=== PATIENT | male | born 1965 | race Caucasian/White ===

== ENCOUNTER 2018-07-09 08:25 | Outpatient (CLI) | payer MEDICARE, MEDICAID, SELFPAY ==
[2018-07-09 09:57] LABS: ALT 32 U/L (12-78); AST 21 U/L (15-37); Albumin 3.6 g/dL (3.4-5.0); Alkaline Phosphatase 111 U/L (46-116); Anion Gap 11.2 mmol/L (3-11); BUN 15 mg/dL (7-18); Bilirubin, Total 0.3 mg/dL (0.2-1.0); CO2 27.8 mmol/L (21.0-32.0); Calcium 9.6 mg/dL (8.5-10.1); Chloride 103 mmol/L (98-107); Estimated GFR 57.31 (mL/min/1.73m2); Glucose 92 mg/dL (70-100); Potassium 4.3 mmol/L (3.5-5.1); Sodium 142 mmol/L (136-145); Total Protein 7.7 g/dL (6.4-8.2)
[2018-07-09 10:17] LABS: Vitamin D 25 Total 49.9 ng/ml (30-100)
== END 2018-07-09 08:45 ==
PROVIDERS: PCP Family Medicine; Visit Provider Family Medicine
DX: M89.9 Disorder of bone, unspecified (principal); R74.8 Abnormal levels of other serum enzymes; R03.0 Elevated blood-pressure reading, without diagnosis of hypertension
CPT/HCPCS: 36415; 80053; 82306

== ENCOUNTER 2019-01-30 08:28 | Outpatient (CLI) | payer MEDICARE, MEDICAID, SELFPAY ==
[2019-01-30 08:47] LABS: HCT 42.6 % (40.0-50.0); HGB 14.4 g/dL (13.5-17.5); Mean Corp. HGB Concentration 33.8 g/dL (32.0-36.0); Mean Corpuscular Hemoglobin 30.3 pg (27.0-33.0); Mean Corpuscular Volume 89.5 fL (80-95); Mean Platelet Volume 9.6 fL (8.0-11.0); Platelet Count 295 x1000/uL (130-400); RBC 4.76 m/cumm (4.50-6.00); RBC Distribution Width 13.7 % (11.8-14.1); White Blood Cell Count 8.03 k/cumm (4.4-10.8)
[2019-01-30 09:53] LABS: Anion Gap 10.9 mmol/L (3-11); BUN 13 mg/dL (7-18); CO2 26.1 mmol/L (21.0-32.0); Calcium 8.5 mg/dL (8.5-10.1); Calculated LDL 115 mg/dL; Chloride 104 mmol/L (98-107); Cholesterol 193 mg/dL (50-200); Glucose 96 mg/dL (70-100); HDL Cholesterol 57 mg/dL (40-60); Potassium 4.2 mmol/L (3.5-5.1); Sodium 141 mmol/L (136-145); Triglyceride 107 mg/dL (30-150)
== END 2019-01-30 08:48 ==
PROVIDERS: PCP Family Medicine; Visit Provider Family Medicine
DX: I10 Essential (primary) hypertension (principal); D64.9 Anemia, unspecified; E78.5 Hyperlipidemia, unspecified
CPT/HCPCS: 36415; 80048; 80061; 83721; 85027

== ENCOUNTER 2019-11-28 12:52 | Outpatient (REF) | payer MEDICARE, MEDICAID, SELFPAY ==
[2019-11-28 18:57] LABS: HCT 44.7 % (40.0-50.0); HGB 14.9 g/dL (13.5-17.5)
[2019-11-28 19:01] LABS: BUN 16 mg/dL (7-18); CREATININE 1.44 mg/dL (0.70-1.30); Calcium 9.5 mg/dL (8.5-10.1); Chloride 104 mmol/L (98-107); Estimated GFR 50.75 (mL/min/1.73m2); Glucose 103 mg/dL (74-106); Potassium 4.7 mmol/L (3.5-5.1); Sodium 138 mmol/L (136-145)
== END 2019-11-28 13:12 ==
LOC: NCHCN 12:52
PROVIDERS: PCP Family Medicine; Visit Provider Family Medicine
DX: I95.1 Orthostatic hypotension (principal)
CPT/HCPCS: 80048; 85014; 85018

== ENCOUNTER 2019-12-05 01:07 | Outpatient (CLI) | payer MEDICARE, MEDICAID, SELFPAY ==
--- NOTE | 2019-12-05 | DI.US_ITS ---
EXAM: US RENAL CLINICAL HISTORY: RENAL INSUFFICIENCY,N28.9,UTI SYMPTOMS, R39.9. TECHNIQUE: Kaur scale, color and spectral Doppler were used. COMPARISON: No exams were available for comparison FINDINGS: Renal size in cm: Right: 10.1 left: 10.2 Echogenicity: Normal. Hydronephrosis: No. Cyst or mass: No. Nephrolithiasis: No. Other findings: None. Bladder:Normal. Ureteral jets: Right: Visualized and unremarkable. Left: Visualized and unremarkable. Prevoid vol:390 cc Postvoid vol:Patient unable to void. Cc Prostate: 23.2 cc DOPPLER FINDINGS: Normal and symmetric blood flow to the kidneys. IMPRESSION: Patient was unable to void which resulted in a large urinary bladder volume at the end of the examina tion. Otherwise unremarkable renal ultrasound. DATA REPOSITORY:
== END 2019-12-05 01:27 ==
PROVIDERS: PCP Family Medicine; Visit Provider Family Medicine
DX: N28.9 Disorder of kidney and ureter, unspecified (principal); R39.9 Unspecified symptoms and signs involving the genitourinary system; R33.9 Retention of urine, unspecified
CPT/HCPCS: 76770

== ENCOUNTER 2020-03-05 11:21 | Outpatient (REF) | payer MEDICARE, MEDICAID, SELFPAY ==
[2020-03-05 19:14] LABS: Anion Gap 7.1 mmol/L (3-11); BUN 9 mg/dL (7-18); CO2 28.9 mmol/L (21.0-32.0); CREATININE 1.22 mg/dL (0.70-1.30); Calcium 9.1 mg/dL (8.5-10.1); Chloride 103 mmol/L (98-107); Glucose 75 mg/dL (74-106); Potassium 4.2 mmol/L (3.5-5.1); Sodium 139 mmol/L (136-145)
== END 2020-03-05 11:41 ==
LOC: NCHCN 11:21
PROVIDERS: PCP Family Medicine; Visit Provider Family Medicine
DX: N28.9 Disorder of kidney and ureter, unspecified (principal)
CPT/HCPCS: 80048

== ENCOUNTER 2020-04-20 02:25 | Outpatient (CLI) | payer MEDICARE, MEDICAID, SELFPAY ==
--- NOTE | 2020-05-11 08:21 | ZIOP_ITS ---
Date of service: 05/11/20 Time of Service: 08:21 14 Day Commercial Illustrator Referring Provider:: Catina Indications:: dizziness Note: This is a 14-day monitoring ordered for dizziness The rhythm throughout was sinus. Average heart rate was 86. Minimum heart rate was 58 and maximum 123 There was no atrial fibrillation. There was no high-grade AV block or pauses greater than 3 seconds There were rare atrial and ventricular ectopic beats There were 6 supraventricular runs, the longest of which lasted 18 beats No symptoms were reported
== END 2020-04-20 02:45 ==
PROVIDERS: PCP Family Medicine; Visit Provider Family Medicine
DX: R42 Dizziness and giddiness (principal); I47.2 Ventricular tachycardia
CPT/HCPCS: 0296T

== ENCOUNTER 2020-05-11 08:21 | Outpatient (CLI) | payer MEDICARE, MEDICAID, SELFPAY | END 2020-05-11 08:41 | PROVIDERS: PCP Family Medicine; Referring Provider Internal Medicine Cardiovascular Disease; Visit Provider Internal Medicine Cardiovascular Disease | DX: R42 Dizziness and giddiness (principal); I47.2 Ventricular tachycardia | CPT/HCPCS: 0298T ==

== ENCOUNTER 2020-07-31 13:42 | Outpatient (CLI) | payer MEDICARE, MEDICAID, SELFPAY ==
--- NOTE | 2020-07-31 13:45 | RT.EKG_ITS ---
APPROVED REPORT Exam: Resting ECG Patient Location: O HR:87 bpm ECG Measurements Heart Rate 87 AXIS LA 154 P 33 QRSd 88 QRS -34 QT 345 T 48 QTc 415 Conclusion Sinus rhythm...normal P axis, V-rate 50- 99 Consider right atrial enlargement...P >0.24mV limb lead Left axis deviation...QRS axis (-30,-90) Baseline wander in lead(s) V1
== END 2020-07-31 13:43 | disposition home or self-care (01) ==
LOC: DI.CARD 13:54
PROVIDERS: PCP Family Medicine; Referring Provider Family Medicine; Visit Provider Internal Medicine Cardiovascular Disease
DX: I95.1 Orthostatic hypotension (principal); G47.33 Obstructive sleep apnea (adult) (pediatric)
CPT/HCPCS: 93010

== ENCOUNTER → 2020-07-31 13:42 | Outpatient (BNVA) | payer MEDICARE, MEDICAID, SELFPAY | PROVIDERS: PCP Family Medicine; Referring Provider Family Medicine; Visit Provider Internal Medicine Cardiovascular Disease | DX: R42 Dizziness and giddiness (principal); I10 Essential (primary) hypertension; J44.9 Chronic obstructive pulmonary disease, unspecified; F17.200 Nicotine dependence, unspecified, uncomplicated | CPT/HCPCS: 99204; 99214 ==

== ENCOUNTER 2021-04-02 03:55 | Outpatient (CLI) | payer MEDICARE, MEDICAID, SELFPAY ==
--- NOTE | 2021-04-02 07:33 | DI.US_ITS ---
APPROVED REPORT EXAM: Comprehensive 2D, Doppler, and color-flow Echocardiogram Patient Location: Out-Patient Family Intervention Specialist: Wanda Cordero RDCS (AE) Indications: Orthostatic hypotension, Lightheadedness, Sleep apnea Other Information Study Quality: Adequate Conclusion Normal left ventricular wall thickness. Normal left ventricular chamber size. Estimated ejection fr action is 65 to 70%. Wall motion is hyperdynamic Normal right ventricular size and systolic function Both atria are normal in size There is no significant valvular disease Wall motion Left Ventricle The left ventricle is normal size. The left ventricular systolic function is normal. The left ventric ular ejection fraction is within the normal range. There is normal left ventricular wall thickness. T here is normal LV segmental wall motion. There is no ventricular septal defect visualized. LVEF is 65 -70%. Right Ventricle The right ventricle is normal size. The right ventricular systolic function is normal. The RVSP is 34 .4 mmHg. Atria The left atrium size is normal. The right atrium size is normal. The interatrial septum is intact wit h no evidence for an atrial septal defect. Aortic Valve The aortic valve is normal in structure. Aortic valve is trileaflet. There is no aortic valvular sten osis. No aortic regurgitation is present. Mitral Valve The mitral valve is normal in structure. No evidence of mitral valve stenosis. Trace mitral regurgita tion. Tricuspid Valve The tricuspid valve is normal in structure. There is no tricuspid valve stenosis. Trace tricuspid reg urgitation. Pulmonic Valve The pulmonary valve is normal in structure. There is no pulmonic valvular stenosis. Trace pulmonic re gurgitation. Great Vessels The aortic root is normal in size. The ascending aorta is normal in size. Aortic arch is normal in ca liber. IVC is normal in size and collapses >50% with inspiration. Pericardium There is no pericardial effusion. 2D Dimensions IVSD d PLAX 1.02 cm M: 0.6-1.2 LV Vol A2C d MOD 92.8 mL LVPW d PLAX 1.03 cm M: 0.6 - 1.2 LV Vol A4C d MOD 76.4 mL LVID d PLAX 4.04 cm M: 4.2 - 5.8 LA vol/ BSA A2C s A-L 19.3 mL/m2 LVDs 2.85 cm M: 2.5 - 4.0 LA vol/ BSA A4C s A-L 15.7 mL/m2 Ao Root d 3.18 cm M: 3.1 - 3.7 LA Vol/ BSA Biplane s A-L 18.0 mL/m2 RA Area A4C 11.69 cm2 LA Area A4C s MOD 13.53 cm2 RA Vol/ BSA A4C s A-L 13.6 mL/m2 LA Area A2C s MOD 14.54 cm2 Ao Asc Diam d 3.35 cm M: 2.6 - 3.4 LV EF A4C MOD 58.7 % LV EF Teichholz 56.1 % LV EF A2C MOD 55.6 % LVEF (Vincent's) 57.98 % M: 52 - 72 LV EF Biplane MOD 58.0 % LV Volume 64.57 mL M: 62 - 150 SV 50.79 mL LV Volume Index 30.74 mL/m2 M: 34 - 74 SV Index 24.10 mL/m2 LV Vol Biplane MOD 87.6 mL FS 28.85 % M-Mode TAPSE 2.59 cm (M/F) >1.7 LV Diastology MV E' medial 0.136 (>0.07 m/s) E/A Ratio 0.8 LV E/e MED 5.45 (<14) MV E Vmax 0.75 (0.4-1.3 m/s) MV E' lateral 0.105 (>0.1 m/s) MV A Vmax 0.90 (0.4-1.3 m/s) LV E/e LAT 7.05 (<14) MV E/A Ratio 0.80 MV E/E' medial 5.50 MV E/E' lateral 7.09 Aortic Valve LVOT Area 3.04 cm2 AoV Area Vmax 2.43 cm2 LVOT Vmax 1.28 m/s AoV Area/ BSA (Vmax) 1.15 cm2/m2 LVOT Mean Dustin. 0.81 m/s MAGED Mean Dustin. 2.23 cm2 LVOT Peak Grad 6.6 mmHg MAGED Mean Dustin. Index 1.06 cm2/m2 LVOT Mean Grad 3.2 mmHg LVOT VTI 0.221 m LVOT Diam s 1.95 cm AoV Vmax 1.61 m/s Velocity Ratio 0.79 AoV Mean Dustin. 1.11 m/s AoV Peak Grad 10.3 mmHg LVOT SV 67.27 mL AoV Mean Grad 5.5 mmHg AoV VTI 0.225 m AoV Area VTI 2.99 cm2 AoV Area/ BSA (VTI) 1.42 cm/m2 Mitral Valve MV DT 227 (160-240 msec) MV PHT 66 msec MV Area PHT 3.35 cm2 MV VTI 0.215 m MV Area VTI 3.14 (4.0-6.0 cm2) Pulmonary Valve PV Vmax 1.35 (0.5-1.5 m/s) RVOT Peak Gr. 3.31 mmHg PV Peak Grad 7.3 mmHg RVOT Mean Gr. 1.45 mmHg PV Mean Grad 3.9 mmHg RVOT VTI 0.142 m PV VTI 0.222 m RVOT Vmax 0.91 m/s Tricuspid Valve TR Peak Grad 31.4 mmHg TR Vmax 2.80 m/s RA Pressure 3.00 mmHg RVSP (TR) 34.4 mmHg
== END 2021-04-02 04:15 ==
PROVIDERS: PCP Family Medicine; Visit Provider Internal Medicine Cardiovascular Disease
DX: I95.1 Orthostatic hypotension (principal); G47.30 Sleep apnea, unspecified
CPT/HCPCS: 93306

== ENCOUNTER 2021-05-31 03:15 | Outpatient (CLI) | payer MEDICARE, MEDICAID, SELFPAY ==
[2021-05-31 12:00] LABS: Hemoglobin A1C 5.9 % (<5.7)
[2021-05-31 13:25] LABS: CREATININE 1.3 mg/dL (0.70-1.30); Calculated LDL 74 mg/dL (<100); Cholesterol 196 mg/dL (<200); HDL Cholesterol 60 mg/dL (40-60); Triglyceride 310 mg/dL (<150)
== END 2021-05-31 03:16 | disposition home or self-care (01) ==
LOC: LBO 03:15
PROVIDERS: PCP Family Medicine; Visit Provider Family Medicine
DX: I10 Essential (primary) hypertension (principal); Z00.00 Encounter for general adult medical examination without abnormal findings; E78.5 Hyperlipidemia, unspecified
CPT/HCPCS: 36415; 80061; 82565; 83036

== ENCOUNTER 2022-12-27 16:37 | Emergency (ER) | payer MEDICARE, MEDICAID, SELFPAY ==
[2022-12-27 16:39] VITALS: BP 127/84; PULSE 90; RESP 16; TEMP 36.9; O2SAT 97
[2022-12-27 18:46] LABS: Abs Immature Grans 0.06 10^3/uL (0.0-0.06); Absolute Monocyte Count 0.78 10^3/uL (0.1-0.8); Absolute Neutrophil Count 10.75 10^3/uL (1.2-6.7); Eosinophils % 3.4; HCT 41.6 % (40.0-50.0); HGB 13.8 g/dL (13.5-17.5); Immature Grans % 0.4; Lymphocytes % 16.7; MCHC 33.2 % (32.0-36.0); MCV 94 fL (80-95); MPV 9.4 fL (8.0-11.0); Monocytes % 5.3; Neutrophils % 73.2; Platelet Count 294 10^3/uL (130-400); RBC 4.45 10^6/uL (4.36-5.78); RDW 13.7 % (11.8-14.1); RDW-SD 46.6 fL; WBC 14.69 10^3/uL (4.4-10.8)
[2022-12-27 18:53] LABS: Absolute Basophil Count 0.15 10^3/uL (0.0-0.2); Absolute Lymphocyte Count 2.45 10^3/uL (1.2-3.4)
[2022-12-27 19:04] LABS: ALT 25 U/L (16-63); AST 22 U/L (15-37); Albumin 3.5 g/dL (3.4-5.0); Alkaline Phosphatase 88 U/L (46-116); Anion Gap 6.5 mmol/L (3-11); BUN 18 mg/dL (7-18); Bilirubin, Total 0.3 mg/dL (0.2-1.0); CO2 27.5 mmol/L (21.0-32.0); CREATININE 1.4 mg/dL (0.70-1.30); Calcium 8.7 mg/dL (8.5-10.1); Chloride 105 mmol/L (98-107); Glucose 98 mg/dL (74-106); Sodium 139 mmol/L (136-145); Total Protein 7.5 g/dL (6.4-8.2)
[2022-12-27 19:19] VITALS: BP 128/62; PULSE 82; RESP 18; O2SAT 98
--- NOTE | 2022-12-28 09:10 | W.ED.GENAD ---
Discharge Plan Disposition Patient Disposition: Home Discharge Details Clinical Impression: Choking episode, Gabi-Murdock tear Primary Care Provider: Josh Zarate ED Provider: Bessy Martínez Home Meds and New Rx's Prescriptions: New omeprazole 20 mg capsule,delayed release(DR/EC) 20 mg PO DAILY Qty: 14 0RF Continued venlafaxine [Effexor XR] 150 MG capsule,extended release 24hr 125 mg PO TID simvastatin 40 MG tablet 40 mg PO DAILY Patient Comments: caregiver unsure if pt. takes gabapentin [Neurontin] 300 MG capsule 300 mg PO DAILY Patient Comments: Takes at noon, per healthcare manager albuterol sulfate [ProAir HFA] 8.5 GM HFA aerosol inhaler 2 puff Inhalation ONCE Patient Comments: pts caregiver unsure when pt. took last Spiriva with HandiHaler 18 MCG capsule, w/inhalation device 18 mcg Inhalation Patient Comments: 2 puffs qam calcium-vitamin D3-vitamin K 1 EACH tablet,chewable 1 ea PO Patient Comments: pt. caregiver unsure ibuprofen 100 MG tablet 100 mg PO PRN finasteride 5 MG tablet 5 mg PO DAILY Loratadine 10 MG TAB.RAPDIS 10 mg PO DAILY Metamucil Fiber Singles 3.4 GM powder in packet 3.4 g PO DAILY quetiapine 50 mg tablet 50 mg PO TID Serevent Diskus 50 mcg/dose blister with device 1 inh inhalation BID dobefclb-hmpepnggc-BW 3.5-10,000-1 mg/mL-unit/mL-% drops,suspension 4 drp otic (ear) BID 10 Days Qty: 10 1RF Rx Instructions: Both ears gabapentin 600 MG tablet 1,200 mg PO TID gabapentin 600 MG tablet 600 mg PO DAILY Patient Comments: Takes with 300mg at noon venlafaxine 100 MG tablet 100 mg PO TID Patient Comments: 09/14/17: Dose in addition to 125mg PO TID dose, per care provider. -BR Uro-Mag 84.5 MG capsule 85 mg PO BID Discharge Instructions Additional Instructions: Take Prilosec daily. For the next 2 weeks Follow-up with your primary care physician you may need an outpatient endoscopy Smooth foods only and clear liquid diet Stay away from spicy food, acidic foods Return immediately should you have new or worsening complaints Make sure you chew your food completely and have small bites Referrals: Josh Zarate [Primary Care Provider] - Discharge Data Discharge Date/Time-TO BE ENTERED AT DEPARTURE: 12/27/22 19:20 Medical Decision Making 57-year-old gentleman, calm, cooperative, no acute distress, no visible evidence of blood in oropharynx, no stridor, lungs clear to auscultation bilaterally, no hypoxia, hemodynamically stable CBC and CMP do not show evidence of acute abnormality, I did consider chest x-ray and additional imaging, I think at this time given patient's presentation and diagnostic labs, no indication for further assessment We will start on Prilosec and have patient follow-up with primary care physician with outpatient EGD at their discretion Low threshold to return with new or worsening complaints Discharged home in stable condition with stable vitals HPI General Date/Time Provider Initiated Documentation: 12/27/22 17:57. HPI Narrative: This 57-year-old gentleman presents with report of blood in vomitus. He reportedly was eating a piece of steak and it became lodged in his throat, he coughed several times and then threw up the piece of meat and had an episode of blood-streaked sputum. This reportedly an isolated episode. He denies any fever or chills. He denies any current chest pain or shortness of breath. She is back on a daily basis, denies any alcohol consumption, history of alcohol consumption is been sober for the past year, denies known history of varices. Denies any blood in stool. States isolated event and he is feeling at his baseline at this time, denies weakness or dizziness. Related Data Home Medications Medication Instructions Recorded Confirmed albuterol sulfate 90 mcg/actuation 2 puff inhalation ONCE 03/26/14 11/23/22 aerosol inhaler (ProAir HFA) calcium-vitamin D3-vitamin K 500 1 ea PO 03/26/14 11/23/22 mg-1,000 unit-40 mcg chewable tablet gabapentin 300 mg capsule 300 mg PO DAILY 03/26/14 11/23/22 (Neurontin) simvastatin 40 mg tablet 40 mg PO DAILY 03/26/14 11/23/22 tiotropium bromide 18 mcg capsule 18 mcg inhalation 03/26/14 11/23/22 with inhalation device (Spiriva with HandiHaler) venlafaxine 150 mg 125 mg PO TID 03/26/14 11/23/22 capsule,extended release 24 hr (Effexor XR) Loratadine 10 mg PO DAILY 03/14/17 11/23/22 finasteride 5 mg tablet 5 mg PO DAILY 03/14/17 11/23/22 ibuprofen 100 mg tablet 100 mg PO PRN 03/14/17 11/23/22 psyllium husk (aspartame) 3.4 gram 3.4 g PO DAILY 09/05/17 11/23/22 oral powder packet (Metamucil Fiber Singles) gabapentin 600 mg tablet 1,200 mg PO TID 09/14/17 11/23/22 gabapentin 600 mg tablet 600 mg PO DAILY 09/14/17 11/23/22 venlafaxine 100 mg tablet 100 mg PO TID 09/14/17 11/23/22 magnesium oxide (Uro-Mag) 85 mg PO BID 09/18/17 11/23/22 quetiapine 50 mg tablet 50 mg PO TID 06/17/20 11/23/22 salmeterol 50 mcg/dose blister 1 inh inhalation BID 06/17/20 11/23/22 powder for inhalation (Serevent Diskus) lshpeatk-eozigcwyp-tbkyuhmdo 3.5 4 drp otic (ear) BID 10 days #10 mL 03/22/22 11/23/22 mg-10,000 unit/mL-1 % ear drops,susp omeprazole 20 mg capsule,delayed 20 mg PO DAILY #14 caps 12/27/22 release Previous Rx's Medication Instructions Recorded gyosemyd-groavppyy-wcatcvzgw 3.5 4 drp otic (ear) BID 10 days #10 mL 03/22/22 mg-10,000 unit/mL-1 % ear drops,susp omeprazole 20 mg capsule,delayed 20 mg PO DAILY #14 caps 12/27/22 release Allergies Allergy/AdvReac Type Severity Reaction Status Date / Time No Known Allergies Allergy Verified 11/23/22 11:54 General Stated Complaint: Nausea/Vomit/Diar SONJA: 4 PFSH All Active Problems (Updated 12/27/22 @ 19:01 by BILLY Banegas) Choking episode (Acute) Gabi-Murdock tear (Acute) Bilateral impacted cerumen (Acute) Acute otitis externa of right ear (Acute) Sensorineural hearing loss of both ears (Acute) Conductive hearing loss, external ear (Acute) Hypertension (Chronic) Medical History COPD (chronic obstructive pulmonary disease) Developmental disability Obesity OCD (obsessive compulsive disorder) CHRISTIANO (obstructive sleep apnea) Tremor Surgical History Colonoscopy - [facility] (09/18/17) Vasectomy Social History Smoking/Tobacco Use Status: Current every day Tobacco Type: smokeless tobacco Tobacco: How many years used: 5 Smokeless tobacco user: chewing tobacco Quit status: considering quitting Smoking risk assessment performed?: Yes Alcohol Intake: never Drug use: Never Caregiver/Support person: Yes Household members: caregiver Pets and animals: Yes Pets and animals: dog(s) Course Vital Signs Vital signs: Vital Signs Temperature 36.9 C 12/27/22 16:39 Pulse 90 12/27/22 16:39 Respiratory Rate 16 12/27/22 16:39 Blood Pressure 127/84 12/27/22 16:39 Pulse Oximetry 97 12/27/22 16:39 Temperature 36.9 C 12/27/22 16:39 Temperature Source Skin 12/27/22 16:39 Pulse 82 12/27/22 19:19 Respiratory Rate 18 12/27/22 19:19 Respiratory Effort Normal, Non-Labored 12/27/22 18:02 Blood Pressure 128/62 12/27/22 19:19 Blood Pressure Position Sitting 12/27/22 16:39 Pulse Oximetry 98 12/27/22 19:19 Oxygen Delivery Method Room Air 12/27/22 16:39 Oxygen Flow Rate 0 12/27/22 16:39 Pain Level 0 12/27/22 16:39 Lab/Test Results Lab/Test Results: Laboratory Tests Range/Units 12/27/22 12/27/22 18:37 18:37 WBC (4.4-10.8) 10^3/uL 14.69 H RBC (4.36-5.78) 10^6/uL 4.45 Hgb (13.5-17.5) g/dL 13.8 Hct (40.0-50.0) % 41.6 MCV (80-95) fL 94 MCH (27.0-33.0) pg 31.0 MCHC (32.0-36.0) % 33.2 RDW (11.8-14.1) % 13.7 Plt Count (130-400) 10^3/uL 294 MPV (8.0-11.0) fL 9.4 Immature Gran % 0.4 Neutrophils % 73.2 Lymphocytes % 16.7 Monocytes % 5.3 Eosinophils % 3.4 Basophils % 1.0 Nucleated RBC % (0.0-0.3) % 0.0 Absolute Neutrophils (1.2-6.7) 10^3/uL 10.75 H Absolute Lymphocytes (1.2-3.4) 10^3/uL 2.45 Absolute Monocytes (0.1-0.8) 10^3/uL 0.78 Absolute Eosinophils (0.0-0.7) 10^3/uL 0.50 Absolute Basophils (0.0-0.2) 10^3/uL 0.15 Sodium (136-145) mmol/L 139 Potassium (3.5-5.1) mmol/L 4.0 Chloride (98-107) mmol/L 105 Carbon Dioxide (21.0-32.0) mmol/L 27.5 Anion Gap (3-11) mmol/L 6.5 BUN (7-18) mg/dL 18 Creatinine (0.70-1.30) mg/dL 1.4 H Est GFR (CKD-EPI 2020) (mL/min/1.73m2) 57.90 Glucose (74-106) mg/dL 98 Calcium (8.5-10.1) mg/dL 8.7 Total Bilirubin (0.2-1.0) mg/dL 0.3 AST (15-37) U/L 22 ALT (16-63) U/L 25 Alkaline Phosphatase (46-116) U/L 88 Total Protein (6.4-8.2) g/dL 7.5 Albumin (3.4-5.0) g/dL 3.5
--- NOTE | 2022-12-28 10:50 | NUR.NOTE ---
Nursing Note: [facility] worker called and referred to medical records and pt portal for paperwork for incident report per [facility]
== END 2022-12-27 19:20 | disposition home or self-care (01) ==
PROVIDERS: Emergency Provider Physician Assistant; PCP Family Medicine
DX: R09.89 Other specified symptoms and signs involving the circulatory and respiratory systems (principal); K22.6 Gastro-esophageal laceration-hemorrhage syndrome
CPT/HCPCS: 80053; 99283; 85025

== ENCOUNTER → 2023-02-06 09:21 | Outpatient (BNVA) | payer MEDICARE, MEDICAID, SELFPAY | PROVIDERS: PCP Family Medicine; Referring Provider Family Medicine; Visit Provider Surgery | DX: K92.0 Hematemesis (principal); R13.10 Dysphagia, unspecified | CPT/HCPCS: 99215; 99243 ==

== ENCOUNTER → 2023-02-07 00:30 | Outpatient (CLI) | payer MEDICARE, MEDICAID, SELFPAY ==
--- NOTE | 2023-02-07 09:15 | DI.NM_ITS ---
APPROVED REPORT Exam: Pharmacologic Patient Location: Out-Patient Room/Bed: Stress Nurse: Kely Pimentel RN Ordering Provider:SPENCER ROJAS, Contact Number: [phone] BMI: 30.71 Baseline Rhythm: Sinus Rhythm Indications: QUIÑONES Medical History Medical History: COPD, developmental delay, obesity, OCD, CHRISTIANO, tremor Cardiac Medications: Venlafaxine, simvastatin, salmeterol inhaler, quetiapine, omeprazole, gabapentin , finasteride, calcium/vitamin D + Vit K, uromag, spiriva, loratadine Allergies: NKA Cardiac Risk Factors: COPD, HLD, obesity, chews tobacco Previous Cardiac Procedures: None Pretest Chest Pain Characteristics: None Exercise History: None Physical Disabilities: None Lung Sounds: Clear to auscultation Heart Sounds: Regular Stress Test Details Test: Exercise stress converted to pharmacologic stress due to failure to obtain a diagnostic stress test. Reason for pharmacologic stress test: changed from exercise stress test due to inability to reach t arget heart rate. Nuclear Acquisition: Rest Tc-99m/Stress Tc-99m 1 day Rest Isotope: Tc-99m Sestamibi. Dose: 11.0 Date: 02/07/2023 Injection Time: 0905 Stress Isotope: Tc-99m Sestamibi. Dose: 36.0 Date: 02/07/2023 Injection Time: 1050 HR Resting HR Supine: 77 bpm Max Heart Rate (APMHR): 161.420383 bpm Resting HR Standin bpm Target HR (85% APMHR): 136.139967 bpm Max HR Achieved: 133 bpm % of APMHR: 82.61 Recovery HR: 98 bpm HR response to stress: Normal HR response to stress BP Resting BP Supine: 132/90 mmHg Resting BP Standin/70 mmHg Max BP: 140/68 mmHg Recovery BP: 124/64 mmHg BP response to stress: Normal blood pressure response to stress. ECG Resting ECG: Sinus Rhythm Ectopy: None Stress ECG: Sinus Tachycardia ST Change: Nondiagnostic low heart rate Arrhythmia: None Recovery ECG: Sinus Rhythm Recovery ST Change: Nondiagnostic low heart rate Recovery Arrhythmia: None Clinical Reason for Termination: Fatigue, Dyspnea Stress Symptoms: Dizziness, Leg Fatigue, Dyspnea Exercise capacity: 12.5 METs Angina Score: None Pastor Treadmill Score: 12.5 Rate Pressure Product: 30030 Stress ECG Conclusion 1. Resting electrocardiogram was within normal limits 2. Patient exercised on the Rikki protocol and completed a workload of 12.5 METS, peak heart rate ach ieved was 83% of predicted for age 3. The electrocardiographic portion of the test was slightly submaximal without evidence of myocardia l ischemia 4. See MPI report Pastor Treadmill Score is 12.5 which is Low risk. Stress Test Summary STAGE Time (mins) Speed (mph) Grade (%) HR BP SpO2 SYMPTOMS METS Supine 77 132/90 93 Standing 87 110/70 93 1 3 1.7 10 117 152/68 97 Dizziness, mild dyspnea 4.5 2 6 2.5 12 133 7 1 min post Lexiscan injection 125 108/58 97 Mild dyspnea 3 min post Lexiscan injection 103 140/68 98 All symptoms resolved 6 min post Lexiscan injection 98 124/64 96 Patient transitioned to laying michael due to inability to reach target HR due to fatigue, and mild dys pnea. Tolerated lexiscan well. MPI Conclusion Myocardial perfusion is normal. There is no ischemia or evidence of prior infarction Ejection fraction is 62% with normal wall motion Radiologist Interpretation Radiologist agrees with Kiln Operator's Interpretation. Radiologist Interpretation by: Alejandra Garcia MD Interpretation Date/Time: 02/07/2023 15:32:00
[2023-02-07] MEDS: Regadenoson 0.4 MG/5 ML SYR IVP (10:58)
== END ==
PROVIDERS: PCP Family Medicine; Visit Provider Family Medicine
DX: R06.09 Other forms of dyspnea (principal)
CPT/HCPCS: 78452; 93016; 93018; 93017; J2785

== ENCOUNTER 2023-03-07 06:19 | Day surgery (SDC) | payer MEDICARE, MEDICAID, SELFPAY ==
--- NOTE | 2023-03-06 16:34 | HPE_ITS ---
Date of service: 03/07/23 Time of Service: 07:30 Assessment and Plan Assessment and plan (1) Dysphagia: Status: Acute (2) Adenomatous polyps: Status: Acute Assessment and plan: Informed consent is obtained for the procedural (explained in simple layman's terms that the pt. and/or family could understand) explaining risks vs benefits and alternatives to the procedure and consequences if we do not do the procedure and need/rational for the procedure. Risks include but are not limited to: bleeding, infection, perforation of esophagus, stomach, colon, small intestines. This would necessitate emergency surgery to repair the damage w/ possible ostomy; and other associated complications w/ the required surgery. Also complications of anesthesia including aspiration, FL/CVA/. EGD and colo today. Patient's brother Josh Manjarrez who is his legal guardian his previously given consent for the procedure. I did speak with him by phone. (3) Hematemesis: Status: Acute (4) Constipation: (5) COPD (chronic obstructive pulmonary disease): (6) Developmental disability: (7) Dyspnea on exertion: (8) Mood disorder: (9) Obesity: (10) CHRISTIANO (obstructive sleep apnea): History of Present Illness Narrative: Patient is here today for EGD &colonoscopy. ?? They completed a bowel prep with just a clear yellow residual effluent.? They not having any chest pain or shortness of breath, currently.? They are not experiencing any fever or chills.? They deny any productive cough or upper respiratory tract infection signs or symptoms.? They are not having abdominal pain, or nausea and vomiting.? They have not had any changes in medications, past medical history or past surgical history since previously being seen in the office. They have not had any accidents or have been in the ER since the clinic pre-operative evaluation. ??I reviewed the procedure with the patient today, including risks and benefits of the procedure, and what they could expect at home for recovery.? All questions are answered to the patient?s satisfaction today, and they are stable to proceed with the proposed procedure. The patient's legal guardian is his brother Josh. I did obtain consent previously from Josh. Clinic Note 02/06/23: RN:?Pt here with his dayworker, Anibal, pt reports he was coughing up blood when I ate a steak.? Pt reports this was the only time this happened. Pt reports he had a EGD before at [facility].? Pt reports I had one down my throat and up my butt, they havent found nothing.? Pt and dayworker are unaware of his medications.? Pt reports that Sailaja is his casemanager and helps with signing fo reggie. He has never had an EGD done before.? He has had a colonoscopy done in 2018 which did show adenomatous polyps he is due for 5-year follow-up on this Pt was in ED on 12/27-? notes reviewed. ? There is no family history of any esophageal/gastric cancer.? Patient has not had any weight loss.? Their appetite is good.? The patient has been eating: Stomach medications:? omeprazole Swallowing: ? he was having dysphagia.? He was having issues with choking particularly meats and breads.? He does not have any teeth and this probably contributes to the choking since he cannot masticate his food well.? Since he started on this medication he has not had any s/s.? Reflux/Wet Burps: Nausea/vomiting: Epigastric pain: Chest pain/burning: no Melena/blood in stools/anemia:no Constipation or diarrhea: no Dental issues: has had all teeth removed Prior head/neck/esophageal surgery or radiation. none/dental extractions Coffee:? 2 cups Soda/Tea: lots ASA/NSAID?s: Tobacco:? chewer.? quit smoking THC: ETOH: They deny any problems with anesthesia in the past. Anesthesia: general (without airway) Previous surgical intolerances: No Previous surgical complications: No Pulmonary risk factors: Planned procedure: Yes Sleep apnea risks: No COPD/Asthma/Smoker:? copd.? if he does anything strenuous, he will wheeze he is switched from cigarettes to chewing tobacco..? He is supposed to wear CPAP mask when he sleeps but he does not wear 1 because he does not like the way it fits.? he does not wear oxygen Can climb one flight of stairs (12-13 steps) in less than 30 seconds without stopping and without symptoms: Yes The surgery proposed for this patient is: low risk Active cardiac conditions: none Active risk factors: COPD/ sleep apnea/hyperlipidemia/smoking..? He had a stress test in 2012 for shortness of breath that was normal.? Does not look like he has seen cardiology recently. ASA (acety is lsalicylic acid): not used Beta blockers: not used Kidneys: no concerns DM:no ?Patient needs to be Natural airway general because of:? Medical conditions/airway control/ ?Pain control? Meds/NKDA/PMHx/PSHx: see [facility] charts will reviewed as well.? (only had dental surgery at ) Pshx dental extractions EGD/CE no problems w /anesthesias ER Notes 12/27/22 This 57-year-old gentleman presents with report of blood in vomitus.? He reportedly was eating a piece of steak and it became lodged in his throat, he coughed several times and then threw up the piece of meat and had an episode of blood-streaked sputum.? This reportedly an isolated episode.? He denies any fever or chills.? He denies any current chest pain or shortness of breath.? She is back on a daily basis, denies any alcohol consumption, history of alcohol consumption is been sober for the past year, denies known history of varices.? Denies any blood in stool.? States isolated event and he is feeling at his baseline at this time, denies weakness or dizziness. 09/10 CE: After informed consent was obtained the patient was taken to the endoscopy suite and placed in the left decubitus position.? Monitors were applied and a time-out was done.? The patient's name, date of , procedure type, allergies to medications, and metal in his body were all reviewed.? He was then sedated.? Once comfortable, a rectal exam was done.? Sphincter tone was normal.? Prostate was smooth and there were no palpable masses. The scope was then introduced and retroflexed.? No internal hemorrhoids were noted.? The scope was straightened and advanced to the cecum without much difficulty.? There was some liquid stool throughout the colon but this was easily cleaned off.? Once in the cecum the TI and appendiceal orifice were identified.? The scope was then retracted over [address] back into the rectum.? In the transverse colon a small adenomatous polyp was identified and removed with forceps.? Once in the rectum the scope was removed.? The patient was woken up and taken back to [facility] in stable condition. Path: tubular adenoma Review of Systems All systems reviewed & are unremarkable except as noted in HPI and below PFSH All Active Problems Hypertension (Chronic) Conductive hearing loss, external ear (Acute) Sensorineural hearing loss of both ears (Acute) Acute otitis externa of right ear (Acute) Bilateral impacted cerumen (Acute) Dysphagia (Acute) Adenomatous polyps (Acute) Hematemesis (Acute) single episode Medical History Constipation COPD (chronic obstructive pulmonary disease) Developmental disability laymans terms best way to explain things to pt. Dyspnea on exertion Hematemesis Lower urinary tract symptoms Mood disorder Obesity OCD (obsessive compulsive disorder) CHRISTIANO (obstructive sleep apnea) Tinea corporis Tremor Surgical History Colonoscopy - MAC (09/18/17) Vasectomy Social History Smoking/Tobacco Use Status: Current every day Tobacco Type: smokeless tobacco Tobacco: How many years used: 5 Smokeless tobacco user: chewing tobacco Quit status: considering quitting Smoking risk assessment performed?: Yes Alcohol Intake: never Drug use: Never Substance use type: does not use Caregiver/Support person: Yes Household members: caregiver Housing: house Pets and animals: Yes Pets and animals: dog(s) Do you feel safe at home: Yes Additional Social history: [facility] house through [employer] Allergies and Home Medications Allergies Allergy/AdvReac Type Severity Reaction Status Date / Time No Known Allergies Allergy Verified 03/07/23 06:34 Home Medications Medication Instructions Recorded Confirmed Type simvastatin 40 mg tablet 40 mg PO DAILY 03/26/14 03/07/23 History tiotropium bromide 18 mcg capsule 18 mcg inhalation DIRECTED 03/26/14 03/07/23 History with inhalation device (Spiriva with HandiHaler) finasteride 5 mg tablet 5 mg PO DAILY 03/14/17 03/07/23 History psyllium husk (aspartame) 3.4 gram 3.4 g PO DAILY 09/05/17 03/07/23 History oral powder packet (Metamucil Fiber Singles) venlafaxine 100 mg tablet 100 mg PO TID 09/14/17 03/07/23 History quetiapine 50 mg tablet 50 mg PO TID 06/17/20 03/07/23 History salmeterol 50 mcg/dose blister 1 inh inhalation BID 06/17/20 03/07/23 History powder for inhalation (Serevent Diskus) [id number]-[id number]-motmpimef 3.5 4 drp otic (ear) BID 10 days #10 mL 03/22/22 03/06/23 Rx mg-10,000 unit/mL-1 % ear drops,susp omeprazole 20 mg capsule,delayed 20 mg PO DAILY #14 caps 12/27/22 03/07/23 Rx release albuterol sulfate 90 mcg/actuation 2 puff inhalation QID 01/30/23 03/07/23 History aerosol inhaler (Ventolin HFA) bupropion HCl 100 mg tablet 100 mg PO BID 01/30/23 03/07/23 History calcium carbonate 200 mg calcium 200 mg PO TID 01/30/23 03/07/23 History (500 mg) chewable tablet (Tums) ketoconazole 2 % topical cream 1 applic topical BID 01/30/23 03/06/23 History loratadine 10 mg tablet (Allergy 10 mg PO DAILY 01/30/23 03/07/23 History Relief (loratadine)) polyethylene glycol 3350 17 17 g PO DAILY 01/30/23 03/06/23 History gram/dose oral powder gabapentin 600 mg tablet mg 03/07/23 03/07/23 History Exam Const Other: PHYSICAL EXAM GENERAL APPEARANCE: Alert, healthy appearance, oriented, x 3,? in no acute distress HYDRATION: Well hydrated HEAD, EYES, EARS, NECK, THROAT: Head is normocephalic, pupils equal, round, reactive to light and accommodation, ocular movement intact, sclera clear and no jaundice. Edentulous LUNGS: normal respiration/normal chest excursion. ?Clear to auscultation bilaterally. ?No wheeze. ?HEART: Regular rate and rhythm. no murmurs ABDOMEN: soft and non-tender to palpation.? Normal bowel sounds.? Time Spent Time spent with Patient: <40 minutes Time was spent: preparing to see the patient(eg.review tests), obtaining and/or reviewing separately otained hiistory, ordering medications,tests, procedures, referring, communicating with other health career and guidance counselor, indepentently interpreting results, counseling the patient and care coordination
--- NOTE | 2023-03-06 16:40 | W.PM.ENDDOP ---
Date of service: 03/07/23 Time of Service: 08:28 Endoscopy Report DATE OF PROCEDURE: 03/07/23 PRE-OP DIAGNOSIS: Dysphagia and esophageal foreign body/food impaction POST-OP DIAGNOSIS: other (2cm sliding type hiatal hernia/gastritis) SURGEON: Dilma Galicia ANESTHESIA TYPE: General:No Airway ESTIMATED BLOOD LOSS: 2 PATHOLOGY: other COMPLICATIONS: None DISPOSITION: same day PROCEDURE DESCRIPTION: After informed consent was obtained the patient was take to the procedure room and placed in a supine position. Monitors were applied and a time out was done. The patients name, date of , procedure type, allergies to medications and metal in their body was reviewed. A bite block was placed and the patient was sedated. Once sedated and comfortable the gastroscope was advanced through the oropharynx which was grossly normal into the esophagus. The proximal and mid-esophagus were normal. Distal esophagus shows no esophageal: erosions/varices/diverticula or stricture. He does have a 2 cm sliding-type hiatal hernia. Distal esophagus is at 38 cm. he scope was advanced into the stomach and through the pylorus into the 3rd portion of the duodenum. The duodenum was noted to be all normal. Biopsies were done, specimens are retrieved and no bleeding is noted. The scope was retracted back into the stomach and biopsies were done to rule out H. pylori. There were no ulcers. There is mild gastritis at the antrum and the along the greater curvature; biopsies are taken. The scope was retroflexed. The cardia and fundus were noted to be normal. The scope was retracted back into the esophagus and biopsies were done of the GE junction to rule out Carcamo's. The Z line was regular. The GE junction was at 36 cm. The scope was removed and the patient was woken up and taken back to [facility] in stable condition.
--- NOTE | 2023-03-06 16:40 | W.COLOREPORT ---
Date of service: 03/07/23 Time of Service: 08:31 Colonoscopy Report Date of procedure: 03/07/23 Pre-op diagnosis general: Adenomatous polyps Post-op diagnosis procedure note: other (Moderate diverticula of the sigmoid colon) Surgeon: Dilma Galicia Anesthesia Type: General:No Airway Estimated blood loss (mL): 0 Pathology: none sent Complications: None Disposition: no change Prep: Miralax/Dulcolax Retraction Time: 9 Procedure Description: After informed consent was obtained the patient was taken to the procedure room and placed in a left decubitous position. Monitors were applied and a time out was done. The patients name, date of , procedure, allergies to medications and metal in their body was reviewed. The patient was then sedated. Once sedated and comfortable a rectal exam was done. External exam was normal. Internal exam revealed a normal sphincter tone and no palpable masses. The prostate normal. The scope was then introduced and retrofelexed. No internal hemorrhoids were identified. The scope was then advanced to the cecum without difficulty. The TI and appendiceal orifice were identified. The prep was BBPS 3 in all segments for a total of 9. The scope was then slowly retracted over 9 minutes back into the rectum. There are no polyps visualized today. The mucosa is pink and healthy with a normal vascular pattern. He has moderate sigmoid diverticula with multiple [place] diverticulum. There is no signs of active bleeding or infection.. The scope was removed and the patient was woken up and taken back to Same day surgery in stable condition. The patient tolerated the procedure well and there were no immediate complications. Follow up: The patient should follow up in 10 years unless they develop changes in bowel habits or other new gastrointestinal complaints.
--- NOTE | 2023-03-06 16:41 | PDOC.DSDIS_ITS ---
Date of service: 03/07/23 Time of Service: 08:33 Discharge Plan Disposition Patient Disposition: Home Condition: Good Discharge Details Reason For Visit: stomach and colon scopes Attending Provider: Dilma Galicia Primary Care Provider: Josh Zarate [place] Meds and New Rx's Prescriptions: Continued simvastatin 40 MG tablet 40 mg PO DAILY Patient Comments: caregiver unsure if pt. takes tiotropium bromide [Spiriva with HandiHaler] 18 MCG capsule, w/inhalation device 18 mcg Inhalation DIRECTED Patient Comments: 2 puffs qam finasteride 5 MG tablet 5 mg PO DAILY Metamucil Fiber Singles 3.4 GM powder in packet 3.4 g PO DAILY quetiapine 50 mg tablet 50 mg PO TID Serevent Diskus 50 mcg/dose blister with device 1 inh inhalation BID [id number] 3.5-10,000-1 mg/mL-unit/mL-% drops,suspension 4 drp otic (ear) BID 10 Days Qty: 10 1RF Rx Instructions: Both ears bupropion HCl 100 mg tablet 100 mg PO BID polyethylene glycol 3350 17 gram/dose powder 17 g PO DAILY Rx Instructions: mix with 8 oz of liquid then taken by mouth daily for constipation prn no stool in 2 days calcium carbonate [Tums] 200 mg calcium (500 mg) tablet,chewable 200 mg PO TID ketoconazole 2 % cream 1 applic topical BID loratadine [Allergy Relief (loratadine)] 10 mg tablet 10 mg PO DAILY albuterol sulfate [Ventolin HFA] 90 mcg/actuation HFA aerosol inhaler 2 puff inhalation QID venlafaxine 100 MG tablet 100 mg PO TID Patient Comments: 09/14/17: Dose in addition to 125mg PO TID dose, per care provider. -BR omeprazole 20 mg capsule,delayed release(DR/EC) 20 mg PO DAILY Qty: 14 0RF Discontinued polyethylene glycol 3350 17 gram/dose powder 238 g PO ONCE Qty: 238 0RF Rx Instructions: take per colonoscopy instructions bisacodyl [Dulcolax (bisacodyl)] 5 mg tablet,delayed release (DR/EC) 5 mg PO ONCE Qty: 4 0RF Rx Instructions: take per colonoscopy instructions No Action gabapentin 600 mg tablet Discharge Instructions Additional Instructions: DSU Colonoscopy Post- Op Instructions Instructions for Everyone who is given Anesthesia: For your safety, please do the following for the next twenty-four (24) hours: *Do Not operate a motor vehicle (car, truck, motorcycle, etc.) *Do Not drink alcoholic beverages or use any recreational drugs for the first 24 hours or while taking pain medications. The medications in your body may have a reaction that can be dangerous. *Do Not make any important decisions or sign any important papers. Findings: -Hiatal hernia -Diverticula Follow up: 10 yrs 1. No lifting over 20 pounds or strenuous activity for the first 24 hours after your procedure. After 24 hours there are no restrictions on your activity but you may feel fatigued for a few days. 2. After you arrive home you may have a light meal and return to your normal diet as you can tolerate it without feeling sick to your stomach. 3. You may have a bloated, gaseous feeling in your belly (abdomen) after a colonoscopy. Passing gas and belching will help. Walking or lying down on your left side with your knees flexed may relieve the discomfort. Call the office at [phone] (Office) or [phone] (Hospital) right away if you notice any of the following: a.Vomiting of blood or ?coffee ground stools?. b.Rectal bleeding 1Tbsp, blood clots or continuous bleeding. c.Severe belly (abdominal) pain. d.A hard distended belly (abdomen) and an inability to pass gas. 4. Please don?t expect to have a normal BM (bowel movement) for 2-3 days after your procedure. 5. If there are questions regarding the findings of your procedure, please contact your doctor 6. If you are unable to contact your doctor with a problem, contact the hospital at [phone]. 7. Continue all your regular medications unless directed otherwise. I understand the above instructions and have no questions. Signature of Patient or Adult Escort Name of Responsible Adult Escort Signature of Nurse Date/Time Living With a Hiatal Hernia Lifestyle plays just as important a role as medication Many people diagnosed with a?hiatal hernia ?will not have any symptoms.1? For those who do, heartburn and indigestion will be the most common ones experienced. While medications may provide some relief, effective coping strategies are rooted in mitigating discomfort in the first place. If you have a hiatal hernia, some basic approaches?from diet changes to weight loss to hydration?can go a long way in helping you manage your condition and overcome the occasional flare-up. Diet It will come as no surprise to those with chronic heartburn that certain foods can pretty much guarantee a flare-up. Many of these food triggers are common to all sufferers. Other problems, meanwhile, are related to the amount of food we eat. What You Eat This dynamic is, perhaps, best illustrated by a?2013 study ?from the [employer] [place] in [place] which evaluated the association between acid reflux and common food triggers in 513 adults with?gastroesophageal reflux disease?(GERD) . What they found was that there was as much as a two- to three-fold increase in the?risk of symptoms ?when people ate the following types of foods: * Fatty foods * Sugary foods * Spicy foods * Fried foods * Peppermint tea * Fruit juices * Sour foods * Fresh fruit * Alcohol While the study didn't take into the account certain?common food triggers ,?like citrus or caffeine, the figures more or less reflect the experience of the typical person with GERD. To this end, there are certain foods you need to avoid if you have active symptoms or are prone to recurrence. They include red meat, processed foods, mayonnaise, butter, margarine, tomato-based sauces, chocolate, coffee, caffeinated tea, carbonated drinks, citrus and citrus juices, and whole-fat dairy products. In their place, foods like lean chicken, fish, vegetables, grains, and low-fat dairy can provide you the proteins, fats, and carbohydrates you need without triggering the overproduction of stomach acid. Alcohol ?should also be avoided and not so much because it triggers acid production. Rather, alcohol has a corrosive effect on the esophagus and greatly amplifies the symptoms of reflux, in some cases tripling the risk of severe heartburn and chest pain.2? Similar results have been seen in people who?overuse salt . How You Eat? When it comes to?acid reflux ,?how?you?eat plays almost as important a role in the appearance of symptoms as?what?you?eat. This is especially true if the source of the problem is a?hiatal hernia . With a hiatal hernia, the protrusion of the stomach into the chest cavity can alter the alignment of the LES, the valve that protects your esophagus from the contents of your stomach.?As a result, food and acid can leak through this otherwise protective gateway?often profusely. To remedy this, you need to mindful of the position of your stomach as you eat. You also need to ensure that you don't overtax the stomach and that food is able to move through the digestive tract without complication. To achieve this: * Always sit up straight in a chair while eating.3? This ensures that your stomach is in the best alignment to receive food. By contrast, slouching (say,?on the sofa) not only places your stomach in a more horizontal position, it compresses the junction between the stomach and esophagus, promoting backflow.? * Eat smaller, more frequent meals.3??And, more importantly perhaps, do not skip meals. Doing so will only lead you to overeat. * Always eat at a table.?The thing about nibbling on the run or munching in front the TV is that you can end up?mindlessly putting food into your mouth?without even realizing it. Sitting a table with prepared portions helps avoid this. * Take smaller bites and chew longer.3?The rationale is simple: The more your food is pulverized before swallowing, the less the stomach has to do to digest it. This translates to less stomach acid and less acid reflux. * Sit upright for at least an hour after eating.?It is best to do so in a solid but comfortable chair. Also, avoid bending or lying down immediately after eating. * Avoid eating three hours before bedtime.3?This includes snacks. Sleeping with an emptied stomach means there will be far less chance of zoedmu-fk-csv- night reflux. Weight Loss As an independent risk factor, obesity increases the risk of heartburn in people with hiatal hernias exerting excessive pressure on the abdominal wall. This, in turn, compresses the stomach against the diaphragm, not only altering its position but causing it bulge even further into the chest cavity. If you are either overweight or obese, you need to include weight loss an integral part of your treatment plan. The program should ideally be overseen by a doctor or safety technician experienced in?metabolic syndrome . Among the facets of the plan: * Reducing your body mass index (BMI)?from above 30 (obese) to below 25 (normal) can half your risk of acid reflux.4? * A low-fat, high-fiber diet?is delgado to both weight loss and the normalization of your digestive function. The low-fat diet shouldn't necessarily be low-carb, but rather contain complex carbohydrates that have less impact your blood sugar. A diet high in soluble fiber?can help treat constipation and alleviate the straining that can promote herniation. * Drinking at least eight glasses of water per day?can further relieve constipation while diluting the concentrations of acid in your stomach. If you are overweight or obese, water?intake should be even greater. A simple rule of thumb is to drink half your body weight in ounces of water. For example, if you weight 200 pounds, you should drink no less than 100 ounces of water per day (or roughly three-quarters of a gallon). * Take a reasoned approach to exercise.?An informed fitness program should always start easily (with maybe 10 to 15 minutes of exercise performed thrice weekly) and gradually increase in both intensity and duration. The aim of the program is to create a lifetime habit and avoid burnout. To this end, consider working with a operations trainer to get started and/or to adjust your program as you build endurance and strength. Everyday Living When it comes to hiatal hernia symptoms, self-care can go a long way in reducing them?and?preventing them from returning. Work to turn these suggestions into habits: * Relax.?While stress doesn't necessarily cause acid reflux, an increasing? body of evidence ?has shown that stress can impact the way in which our body reacts to reflux symptoms. So, rather than?tying yourself in a knot, trying sitting calming and engaging in deep breathing exercises or meditation. Find someplace quiet where you can sit comfortably until the symptoms pass. * Loosen your belt and remove tight clothing.?Ultimately, anything that constricts the abdomen can trigger symptoms as you move about and jostle the contents of your stomach. Give yourself a break and avoid cinched waistlines or anything that places direct stress on the stomach. * Take a fiber supplement.?If you are suffering from chronic constipation, a daily?fiber supplement ?can help improve your regularity.5? A couple of tablespoons of mineral oil can also help ease hardened stools during acute bouts. * Elevate the head of your bed 4 to 8 inches. This is especially useful for people who are overweight or have the?symptoms of GERD . Aligning the stomach in an ascending (rather than flat) position significantly lowers the risk of gastric backflow related to hiatal hernias. * Avoid heavy lifting.?If you have been diagnosed with a large hernia, lifting heavy objects will only make things?worse. If you have to move something heavy, use a cart or trolley, or, better yet, ask someone else to do it. You may also need to alter your workout routine if you use heavy weights or engage in exercises that place excessive stress on the stomach muscles (including weighted squats or crunches). Finally,?stop smoking.6?While smoking doesn't cause acid reflux, it can affect? gastric motility ?and the way in which food moves through the esophagus. Smoking can also dull the responsiveness your LES and promote?dysphagia ?(swallowing difficult). These effects are long-lasting and may become permanent in heavy smokers, turning even a small hernia into a source of ongoing grief. Activity:: See above Diet:: See above Discharge Orders Discharge Orders: Discharge Order (Routine); Ordered 03/07/23 Ordered By: Dilma Galicia DS: Diagnosis Discharge Diagnosis (1) Dysphagia: Status: Acute (2) Adenomatous polyps: Status: Acute Asessment and Plan: The patient is seen and examined after their colonoscopy.? The patient has been able to pass gas.? They are not having abdominal pain.? They have been able to tolerate liquids and a snack.? They do not have any nausea or vomiting.? They are not having any chest pain or shortness of breath.??? They are not having any rectal bleeding. Their vital signs have been stable-see nursing notes. We discussed findings during their colonoscopy, and any biopsies that were done/polyps that were removed. The patient will be sent a letter with any biopsy results, and when to repeat the colonoscopy.-see discharge instructions. Patient was given explicit instructions to follow-up regarding colonoscopy-refer to discharge instructions.? We reviewed resumption of medications. Patient verbalized understanding and discharged in stable and satisfactory condition- See nursing notes. (3) Hematemesis: Status: Acute (4) Constipation: (5) COPD (chronic obstructive pulmonary disease): (6) Developmental disability: (7) Dyspnea on exertion: (8) Mood disorder: (9) Obesity: (10) CHRISTIANO (obstructive sleep apnea): (11) Hiatal hernia with GERD: Status: Acute (12) Diverticula of colon: Status: Acute
--- NOTE | 2023-03-06 17:56 | W.ANESPRE ---
General Info Date of Service Date Performed: 03/07/23 Height: 5 ft 6.5 in Weight: 87.997 kg Body Mass Index (BMI): 30.8 Surgical Procedure: Operation Date: 03/07/23 07:35 Proposed Procedure Side Surgeon p Colonoscopy/Gastroscopy Dilma Gailcia, DO Meds Allergies and Home Medications Allergies Allergy/AdvReac Type Severity Reaction Status Date / Time No Known Allergies Allergy Verified 03/07/23 06:34 Home Medication Medication Instructions Recorded simvastatin 40 mg tablet 40 mg PO DAILY 03/26/14 tiotropium bromide 18 mcg capsule 18 mcg inhalation DIRECTED 03/26/14 with inhalation device (Spiriva with HandiHaler) finasteride 5 mg tablet 5 mg PO DAILY 03/14/17 psyllium husk (aspartame) 3.4 gram 3.4 g PO DAILY 09/05/17 oral powder packet (Metamucil Fiber Singles) venlafaxine 100 mg tablet 100 mg PO TID 09/14/17 quetiapine 50 mg tablet 50 mg PO TID 06/17/20 salmeterol 50 mcg/dose blister 1 inh inhalation BID 06/17/20 powder for inhalation (Serevent Diskus) [id number] 3.5 4 drp otic (ear) BID 10 days #10 mL 03/22/22 mg-10,000 unit/mL-1 % ear drops,susp omeprazole 20 mg capsule,delayed 20 mg PO DAILY #14 caps 12/27/22 release albuterol sulfate 90 mcg/actuation 2 puff inhalation QID 01/30/23 aerosol inhaler (Ventolin HFA) bupropion HCl 100 mg tablet 100 mg PO BID 01/30/23 calcium carbonate 200 mg calcium 200 mg PO TID 01/30/23 (500 mg) chewable tablet (Tums) ketoconazole 2 % topical cream 1 applic topical BID 01/30/23 loratadine 10 mg tablet (Allergy 10 mg PO DAILY 01/30/23 Relief (loratadine)) polyethylene glycol 3350 17 17 g PO DAILY 01/30/23 gram/dose oral powder gabapentin 600 mg tablet mg 03/07/23 Current Visit Medications: Current Medications Generic Name Dose Route Start Last Admin Trade Name Freq PRN Reason Stop Dose Admin Hyoscyamine Sulfate 0.125 mg 09/12/23 09:21 Hyoscyamine 0.125 Mg Sl/Oral/Chew SL 04/06/23 09:20 DIRECTED PRN Ringer's Solution 1,000 mls @ 80 mls/hr 03/07/23 06:00 IV 04/05/23 23:59 INFUSION SUMA IV Miscellaneous Supplies 1 each 03/07/23 06:00 Iv Access IV 04/05/23 23:59 DIRECTED SUMA Ondansetron HCl 4 mg 03/07/23 09:21 Ondansetron 4 Mg/2 Ml Vial IVP 04/06/23 09:20 Q4H PRN PRN Nausea / Vomiting Sodium Chloride 0 ml 03/07/23 06:00 Normal Saline Flush 10 Ml Syr IV 04/05/23 23:59 PRN PRN Sodium Chloride 0 ml 03/07/23 06:00 Normal Saline 10 Ml Vial IJ 04/05/23 23:59 DIRECTED PRN Sterile Water 0 ml 03/07/23 06:00 Water,Injection,Sterile 10 Ml Vial IJ 04/05/23 23:59 DIRECTED PRN PFSH Active Problems Active Problems: Problem Status Onset Code Hypertension I10 Conductive hearing loss, external ear H90.2 Sensorineural hearing loss of both ears H90.3 Acute otitis externa of right ear H60.501 Bilateral impacted cerumen H61.23 Dysphagia R13.10 Adenomatous polyps D36.9 Hematemesis K92.0 Medical History Medical History Constipation COPD (chronic obstructive pulmonary disease) Developmental disability laymans terms best way to explain things to pt. Dyspnea on exertion Hematemesis Lower urinary tract symptoms Mood disorder Obesity OCD (obsessive compulsive disorder) CHRISTIANO (obstructive sleep apnea) Tinea corporis Tremor Surgical History Surgical History Colonoscopy - MAC (09/18/17) Vasectomy Tobacco Smoking/Tobacco Use Status: Current every day Tobacco Type: smokeless tobacco Smokeless tobacco user: chewing tobacco Alcohol Alcohol Intake: never Substance Use Substance use: Never Substance use type: does not use Vital Signs and Lab Results Vital Signs Most Recent Vital Signs in EMR: Temp Pulse Resp BP Pulse Ox 36 C L 85 16 126/94 H 97 03/07/23 06:28 03/07/23 06:28 03/07/23 06:28 03/07/23 06:28 03/07/23 06:28 Lab Results Blood Type / Crossmatch: No Data to Display Complete Blood Count: No Data to Display Complete Metabolic Panel: No Data to Display Liver Function Panel: No Data to Display Coagulation Panel: No Data to Display Cardiac Panel: No Data to Display Arterial Blood Gas: No Data to Display Venous Blood Gas: No Data to Display Pancreas Panel: No Data to Display Thyroid Panel: No Data to Display Infectious Disease: No Data to Display Blood Cultures: No Data to Display Toxicology Panel: No Data to Display Imaging and Studies Imaging and Studies Study information below may be from another EMR and interpreted by another provider. Please see original notes in EMR for more complete details. EKG Summary: 08/16: sinus, LAD. Stress Test Summary: 02/15: pharm, 12.5 METS, no ECG evidence of ischemia. EF 62%, normal perfusion. no evidence of ischemia/infarction. Echocardiogram Summary: 04/15: LVEF 65-70%, normal RV, no sig valve dz. Pulmonary Function Summary: 2013: mild obstructive airway dz with sig bronchodilator response. Anesthesia Assessment and Plan Anesthesia History Personal History: No History of Anesthesia Complications Family History: Family History Unknown Exercise Tolerance Exercise Tolerance: Metabolic Equivalents>4 Cardiac & Pulmonary Exam Cardiac Exam: Normal S1/S2 Heart Sounds Pulmonary Exam: Clear Bilateral Breath Sounds Implantable Cardiac Device Does patient have a Pacemaker or an ICD?: No Airway Exam Known Difficult Airway: No Mallampati Class: 4 Mouth Opening: Narrow (< 3cm) Thyromental Distance: Less than 3 cm Neck Range of Motion: Full ROM Neck Circumference: Thick Teeth Condition: Edentulous ASA Classification ASA Score: ASA 2 Emergency Case?: No NPO Status NPO Status: NPO Clears >2 hours, Solids >8 hours Anesthesia Plan Resuscitation Status: Full Code Anesthesia Technique: General Anesthesia Airway Planned: Natural Airway Monitors Used: Standard Monitors Preoperative Comments:: 57 yo male for colo. Sig PMHx: HTN (no meds), orthostatic hypotension (has seen cards in the past), COPD (does get wheezy with exertion. salmeterol - only drug on care givers sheet. Albuterol, spiriva listed in [employer], but not on medlist for pt), QUIÑONES, CHRISTIANO, GERD (omeprazole), OCD/mood disorder, developmental delay, chewing tobacco. Previous Anes: - prop, natural airway, no issues.
[2023-03-07 06:28] VITALS: BP 126/94; PULSE 85; RESP 16; TEMP 36; O2SAT 97
[2023-03-07] MEDS: Lactated Ringers 1,000 ML 80 ML IV (06:54)
[2023-03-07 06:56] VITALS: BMI 30.8
--- NOTE | 2023-03-07 07:45 | STOM_PTH ---
PATIENT: Tejas Manjarrez LOC: [facility] U#:[id number] AGE/SX: 57/M ROOM: RE03/07/[address]: Dilam Galicia : 1965 BED: DIS: 03/07/2023 SPEC #: [id number] RECD: 03/07/23 12:49 STATUS: [facility] #: [id number] CHRIS: 03/07/23 07:[address]: Dilma Galicia DEPT: Surgical Specimen RECD BY: Bessy Zuniga ENTERED: 03/07/23 12:52 SP TYPE: STOMACH OTHR DR: Josh Zarate Tissues: 1 - BIOPSY BOWEL 2 - BIOPSY BOWEL 3 - STOMACH BIOPSY 4 - STOMACH BIOPSY 5 - ESOPHAGUS BIOPSY 6 - ESOPHAGUS BIOPSY Procedures: GROSS AND MICRO LEVEL 4 Comments: [id number]
[2023-03-07 08:19] VITALS: BP 98/62; PULSE 72; RESP 16; TEMP 36.5; O2SAT 95
[2023-03-07 08:53] VITALS: BP 121/87; PULSE 62; RESP 16; TEMP 36.7; O2SAT 96
--- NOTE | 2023-03-07 09:23 | W.ANESPOSTOP ---
Postoperative Evaluation Date, Time and Location Date Performed: 03/07/23 Time Performed: 08:53 Patient Location: Day Surgery Unit Vital Signs Most Recent Imported Vital Signs: Most Recent Vital Signs Temp Pulse Resp BP Pulse Ox 36.7 C 62 16 121/87 96 03/07/23 08:53 03/07/23 08:53 03/07/23 08:53 03/07/23 08:53 03/07/23 08:53 Pain Score Most Recent Pain Score: Most Recent Pain Score Pain Level 0 03/07/23 08:53 Assessment Mental Status: Awake (Alert & Oriented to Patient Baseline) Airway and Respiratory Function: Patent airway with normal (patient baseline) respiratory exam Cardiovascular Function: Hemodynamically Stable Hydration Status: Adequately Hydrated Nausea & Vomiting: No Nausea or Vomiting Pain: Pt. Denies Any Pain Peripheral Nerve Block: Patient did not receive a nerve block
== END 2023-03-07 09:22 | disposition home or self-care (01) ==
PROVIDERS: PCP Family Medicine; Visit Provider Surgery
PROC: (CPT 43239; principal; 2023-03-07 07:30)
DX: Z12.11 Encounter for screening for malignant neoplasm of colon (principal); R13.10 Dysphagia, unspecified; K92.0 Hematemesis; K59.00 Constipation, unspecified; Z86.010 Personal history of colon polyps; K57.30 Diverticulosis of large intestine without perforation or abscess without bleeding; K29.70 Gastritis, unspecified, without bleeding; K44.9 Diaphragmatic hernia without obstruction or gangrene; K20.90 Esophagitis, unspecified without bleeding
CPT/HCPCS: 43239; G0105; 88305; J2405

== ENCOUNTER 2023-03-15 03:59 | Outpatient (CLI) | payer MEDICARE, MEDICAID, SELFPAY ==
[2023-03-15 07:56] LABS: Abs Immature Grans 0.03 10^3/uL (0.0-0.06); Absolute Basophil Count 0.13 10^3/uL (0.0-0.2); Absolute Eosinophil Count 1.24 10^3/uL (0.0-0.7); Absolute Lymphocyte Count 2.31 10^3/uL (1.2-3.4); Absolute Monocyte Count 0.58 10^3/uL (0.1-0.8); Absolute Neutrophil Count 4.85 10^3/uL (1.2-6.7); Basophils % 1.4; Eosinophils % 13.6; HCT 39.4 % (40.0-50.0); Immature Grans % 0.3; Lymphocytes % 25.3; MCH 29.7 pg (27.0-33.0); MCV 90 fL (80-95); MPV 9.5 fL (8.0-11.0); Monocytes % 6.3; Neutrophils % 53.1; Platelet Count 251 10^3/uL (130-400); RBC 4.37 10^6/uL (4.36-5.78); RDW 13.3 % (11.8-14.1); RDW-SD 43.9 fL; WBC 9.14 10^3/uL (4.4-10.8)
[2023-03-15 09:22] LABS: Ferritin 103 ng/mL (26-388); Folate 12.5 ng/mL (8.6-20.0); Vitamin B12 215 pg/mL (193-986)
== END 2023-03-15 04:00 | disposition home or self-care (01) ==
LOC: LBO 03:59
PROVIDERS: PCP Family Medicine; Visit Provider Surgery
DX: K92.0 Hematemesis (principal); I10 Essential (primary) hypertension; R13.10 Dysphagia, unspecified; R39.89 Other symptoms and signs involving the genitourinary system; Z79.899 Other long term (current) drug therapy
CPT/HCPCS: 36415; 82607; 82728; 82746; 85025

== ENCOUNTER 2024-05-06 18:26 | Outpatient (REF) | payer MEDICARE, MEDICAID, SELFPAY ==
--- OUTSIDE RECORDS SUMMARY | 2024-05-06 18:34 | XMS_ITS | Encounter Summary ---
Author Organization [facility] Address [facility] [place] [address] Care Team Providers Care [employer] Name Role Phone Josh Zarate MD Primary Care Provider [phone] Encounter Details Date Type Department Care Team (Late st Contact Info) Description 02/27/2019 7:30 AM EDT - 02/27/2019 9:58 AM EDT Surgery Main Operating Room [facility] [place] [id number] Darío Low MD [facility] [address] [place]AL [place] [address] SURGICAL EXTRACTIONS REQUIRING ELEVATION OF MUCOPERIOSTEAL FLAP AND REMOVAL OF BONE OR SECTION OF TOOTH (WRVU 1.09) Social History Tobacco Use Types Packs/Day Years Used Date Smoking Tobacco: Former Cigarettes Smokeless Tobacco: Current Chew Comments:quit 1999 Sex and Gender Information Value Date Recorded Sex Assigned at Not on file Gender Identity Not on file Sexual Orientation Not on file documented as of this encounter Last Filed Vital Signs Vital Sign Reading Time Taken Comments Blood Pressure 144/94 02/27/2019 9:50 AM EDT Pulse 76 02/27/2019 9:50 AM EDT Temperature 36.2 ??C (97.2 ??F) 02/27/2019 9:50 AM ED T Respiratory Rate 12 02/27/2019 9:50 AM EDT Oxygen Saturation 100% 02/27/2019 9:50 AM EDT Inhaled Oxygen Concentration - - Weight 90.1 kg (198 lb 9.6 oz) 02/27/2019 6:56 A M EDT Height - - Body Mass Index 30.2 12/20/2018 8:26 AM EDT documented in this encounter Discharge Instructions * Patient Instructions* Darío Low MD - 02/27/2019 9:32 AM EDT On the Day of Surgery: DO NOT rinse your mouth, smoke, or use a straw when drinking. Any of these could cause you to bleed more. You should remain at home, rest, and avoid alcoholic beverages. Discomfort: It is not uncommon for you to have some discomfort following a surgical procedure. Thisdiscomfort may last for three days or more. Pain relievers such as ibuprofen or Tylenol may be taken - 2 tablets every 3 to 4 hours as needed. If a narcotic is prescribed, take this only as needed. Narcotic drugs may cause nausea. DO NOT take them on an empty stomach, and DO NOT drive or consume alcohol while on narcotics. If prescribed Vicodin, usual dosage is 1- 2 tablets every 4-6 hours as needed for pain. Total daily dosage SHOULD NOT EXCEED 8 tablets. Other discomforts you may experience include: slight earache, sore throat, numbness or tingling in the lips or chin, aches in other teeth, and tightness of the jaw muscles. Bleeding: It is normal for the extraction site to bleed post-operatively. If bleeding continues, place gauze directly over the socket and bite down gently, but firmly, for 20 minutes. Repeat this process as needed. If bleeding is heavy, keep head elevated or sit upright, avoid exercise, hot liquids, smoking, and drinking from straws. If the bleeding does not stop with pressure, try a lukewarm, damp tea bag in place of the gauze foranother 20 minutes. The tea bag will help to form blood clots and stop the bleeding. If bleeding continues, call your doctor. Swelling: To reduce immediate swelling after your procedure, apply an ice pack, with pressure, to the face over the area of the procedure. Ice should be applied for 15-20 minutes at a time, for the first 24 hours. After 24 hours, a moist warm compress may be helpful. Most swelling will occur [id number] hours following the procedure. Mouth Rinse: Vigorous mouth washing may cause bleeding to begin again if clots are not formed. DO NOT RINSE on the day of surgery. Begin rinsing one day after the procedure very gently with warm saltwater (1/2 teaspoon per 8 oz. warm water). Continue rinsing 3-6 times a day for several days. This will keep surgical sites clean and will help with healing. Diet: It is best to eat light, soft foods, and drink plenty of liquids following a surgical procedure. Foods like, yogurt, pasta, eggs, soups, and ice cream are good choices. Avoid hot liquids for 24hours after tooth extraction. Avoid foods that are difficult to chew. Once chewing becomes easier, you may return to your normal diet. In General: If stitches are used, they will dissolve or unravel in about three days to one week. Avoid strenuous exercise, such as jogging and contact sports for at least one week following surgery. Swelling is usually most extensive 24- 48 hours following surgery, and usually takes 4-5 days to subside. Sockets can take 4-6 weeks to heal, and often heal from the inside out. It may take 10-14 days before you feel like your normal self again. Can use any ointment on left eye lid; wash and pat dry The Oral Surgery staff can be reached during office hours at [phone]. documented in this encounter Medications at Time of Discharge Medication Sig Dispensed Refills Start Date End Date oxyCODONE (ROXICODONE) 5 mg Tablet Take 1 tablet by mouth every 6 hours as needed for Pain (For severe pain not responding to tylenol and ibuprofen.). 15 tablet 02/27/2019 cholecalciferol, Vitamin D3, 2,000 unit Tablet TAKE ONE TABLET BY MOUTH EVERY DAY 11/13/2018 finasteride (PROSCAR) 5 mg Tablet TAKE ONE TABLET BY MOUTH EVERY EVENING 1 10/11/2018 gabapentin (NEURONTIN) 300 mg Capsule TAKE ONE CAPSULE BY MOUTH AT NOON 12/11/2018 gabapentin (NEURONTIN) 600 mg Tablet TAKE 2 TABLETS BY MOUTH EVERY MORNING TAKE 1 TABLET BY MOUTH DAILY AT NOON AND TAKE 2 TABLETS BY MOUTH EVERY EVENING 11/13/2018 MAGTAB 84 mg Tablet Sustained Release TAKE 1 TABLET BY MOUTH TWICE A DAY WITH FOOD 3 11/13/2018 REGULOID Powder DISSOLVE 3.4 GRAMS IN 12 OUNCES OF FLUID AND DRINK BY MOUTH ONCE DAILY 11/09/2018 QUEtiapine (SEROQUEL) 50 mg Tablet TAKE ONE TABLET BY MOUTH THREE TIMES A DAY 5 12/11/2018 simvastatin (ZOCOR) 40 mg Tablet TAKE ONE TABLET BY MOUTH NIGHTLY 3 08/05/2018 SPIRIVA RESPIMAT 1.25 mcg/actuation Mist INHALE TWO PUFFS BY MOUTH EVERY DAY 5 12/11/2018 venlafaxine (EFFEXOR) 100 mg Tablet TAKE ONE TABLET BY MOUTH THREE TIMES A DAY 5 11/24/2018 venlafaxine (EFFEXOR) 25 mg Tablet TAKE ONE TABLET BY MOUTH THREE TIMES A DAY WITH 100 MG 5 11/13/2018 polyethylene glycol (MIRALAX) 17 gram Powder in Packet Take 17 g by mouth daily. loratadine (CLARITIN) 10 mg Tablet Take 10 mg by mouth daily. documented as of this encounter Progress Notes * Shnaon Ponce - 02/27/2019 12:57 PM EDT Patient alert and oriented, vital signs stable. Reviewed discharge instructions; patient and his caregiver Sailaja and his brother Josh verbalized understanding. Copy of instruction sheet with contact numbers for questions/concerns with his brother Josh. Pain assessment documented-- -12/03, oxycodoneadministered this shift with good effect as well as ibuprofen. Patient escorted out of department via wheelchair with his brother. Gauze changed 2x this shift. Pt provided with gauze to go home with,small moist blood present on gauze. PIV removed per policy. No issues. Stitches on left eye CDI, site approximated. documented in this encounter H&P Notes * Darío Low MD - 02/27/2019 7:08 AM EDT Patient Name: Tejas Manjarrez Patient Age: 53 y.o. Birthdate: 1965 Admit date: 02/27/2019 Attending Physician: Darío Low MD INTERVAL H&P CC: carious teeth S: Tejas Manjarrez's condition is unchanged since H&P originally performed. Denies any new ED visits, hospitalizations, trauma, or new events. Has been overall doing well. No past medical history on file. No past surgical history on file. No Known Allergies No current facility-administered medications on file prior to encounter. Current Outpatient Medications on File Prior to Encounter Medication Sig Dispense Refill ??? cholecalciferol, Vitamin D3, 2,000 unit Tablet TAKE ONE TABLET BY MOUTH EVERY DAY 5 ??? finasteride (PROSCAR) 5 mg Tablet TAKE ONE TABLET BY MOUTH EVERY EVENING 1 ??? gabapentin (NEURONTIN) 600 mg Tablet TAKE 2 TABLETS BY MOUTH EVERY MORNING TAKE 1 TABLET BY MOUTH DAILY AT NOON AND TAKE 2 TABLETS BY MOUTH EVERY EVENING 5 ??? MAGTAB 84 mg Tablet Sustained Release TAKE 1 TABLET BY MOUTH TWICE A DAY WITH FOOD 3 ??? REGULOID Powder DISSOLVE 3.4 GRAMS IN 12 OUNCES OF FLUID AND DRINK BY MOUTH ONCE DAILY 3 ??? QUEtiapine (SEROQUEL) 50 mg Tablet TAKE ONE TABLET BY MOUTH THREE TIMES A DAY 5 ??? simvastatin (ZOCOR) 40 mg Tablet TAKE ONE TABLET BY MOUTH NIGHTLY 3 ??? SPIRIVA RESPIMAT 1.25 mcg/actuation Mist INHALE TWO PUFFS BY MOUTH EVERY DAY 5 ??? venlafaxine (EFFEXOR) 100 mg Tablet TAKE ONE TABLET BY MOUTH THREE TIMES A DAY 5 ??? venlafaxine (EFFEXOR) 25 mg Tablet TAKE ONE TABLET BY MOUTH THREE TIMES A DAY WITH 100 MG 5 ??? polyethylene glycol (MIRALAX) 17 gram Powder in Packet Take 17 g by mouth daily. ??? loratadine (CLARITIN) 10 mg Tablet Take 10 mg by mouth daily. ??? gabapentin (NEURONTIN) 300 mg Capsule TAKE ONE CAPSULE BY MOUTH AT NOON 5 No family history on file. Social History Socioeconomic History ??? Marital status: Single Spouse name: Not on file ??? Number of children: Not on file ??? Years of education: Not on file ??? Highest education level: Not on file Occupational History ??? Not on file Social Needs ??? Financial resource strain: Not on file ??? Food insecurity: Worry: Not on file Inability: Not on file ??? Transportation needs: Medical: Not on file Non-medical: Not on file Tobacco Use ??? Smoking status: Former Smoker Years: 4.00 Types: Cigarettes ??? Smokeless tobacco: Current User Types: Chew ??? Tobacco comment: quit 1999 Substance and Sexual Activity ??? Alcohol use: Not on file ??? Drug use: Not on file ??? Sexual activity: Not on file Lifestyle ??? Physical activity: Days per week: Not on file Minutes per session: Not on file ??? Stress: Not on file Relationships ??? Social connections: Talks on phone: Not on file Gets together: Not on file Attends bahai service: Not on file Active member of club or organization: Not on file Attends meetings of clubs or organizations: Not on file Relationship status: Not on file ??? Intimate partner violence: Fear of current or ex partner: Not on file Emotionally abused: Not on file Physically abused: Not on file Forced sexual activity: Not on file Other Topics Concern ??? Not on file Social History Narrative ??? Not on file Review of Systems: Constitutional: denies fever, chills Skin: denies any new growths orrashes HEENT: denies head ache,no recent upper respiratory sx Resp: denies any SOB, QUIÑONES CV: No CP, no palpitations GI: denies abd pain, vomiting : denies dysuria, hematuria PV: denies past DVT, claudication MS: denies joint pain, swelling Neuro: denies weakness, numbness Heme/Lymph: denies bruising, bleeding Endo: no troubles with sugar, denies fatigue O: Patient Vitals for the past 24 hrs: BP Temp Temp src Pulse Resp SpO2 Weight 02/27/19 0656 -- -- -- -- -- -- 90.1 kg (198 lb 9.6 oz) 02/27/19 0642 (!) 143/92 36.6 ??C (97.9 ??F) Temporal 92 16 97 % -- NAD, A&Ox3 Non-labored respirations, clear to auscultation bilaterally Regular rate and rhythm, no murmur on auscultation Site marked AP: 53 y.o. male with CARIES FRACTURED TEETH. - After extensive discussion of the risks, benefits, and alteratives of surgical intervention, the patient consented to proceed with surgery. - IV antibiotics ordered - Proceed to OR for: Procedure(s): SURGICAL EXTRACTIONS REQUIRING ELEVATION OF MUCOPERIOSTEAL FLAP AND REMOVAL OF BONE OR SECTION OF TOOTH (WRVU 1.09) ALVEOPLASTY,IN CONJUNCTION WITH EXTRACTIONS,PER QUADRANT,ENT (WRVU 4.06) No flowsheet data found. [place] PDMP QUERY DATE: 02/27/19 Risk Assessment Category: Low Tejas Manjarrez is getting a prescription opioid for the treatment of acute post-operative pain related to the surgical procedure during this encounter. Pt has been advised to take the smallest dose possible to control pain and as the pain improves to take smaller doses and increase the time between doses. In addition to this medication, pt was educated on the non-opioid pain medications that canbe taken for adjunct treatment of pain. Non-pharmacological treatments were also discussed that include but not limited to ice, elevation, and activity modification as appropriate. The Acute Opioid Therapy Informed Consent form has been completed during this encounter and sent tomedical records for scanning to chart. No future appointments. Darío Low DMD, MD child day care center worker documented in this encounter Miscellaneous Notes * Op Note - Darío Low MD - 02/27/2019 9:37 AM EDT [facility] Operative Note Patient Name: Tejas Manjarrez : [id number] MR#: [id number] Case Date: 02/27/2019 Surgeon: Surgeon(s) and Role: * Darío Low MD - Primary Preoperative diagnosis: CARIES FRACTURED TEETH; SKIN TAG LEFT UPPER EYE LID 1 CM Postoperative diagnosis: CARIES FRACTURED TEETH Procedure(s) (LRB): SURGICAL EXTRACTIONS REQUIRING ELEVATION OF MUCOPERIOSTEAL FLAP AND REMOVAL OF BONE OR SECTION OF TOOTH (WRVU 1.09) (N/A) ALVEOPLASTY,IN CONJUNCTION WITH EXTRACTIONS,PER QUADRANT,ENT (WRVU 4.06) (N/A) EXCISION BENIGN LES, [id number] >4.0CM (WRVU 4.09) Anesthesia: General Estimated Blood Loss: * No values recorded between 02/27/2019 8:03 AM and 02/27/2019 9:30 AM * Specimens removed during surgery: None; SKIN LESION FROM LEFT UPPER LID Drains: * No LDAs found * Surgical Closure: Primary Closure - skin incision is completely closed without any wires, santos, drains or other devices Disposition: awakened from anesthesia, extubated and taken to the recovery room in a stable condition, having suffered no apparent untoward event. Condition: doing well without problems (Please see the Surgical Encounter Summary for any Implant and Specimen details pertinent to this patient.) HPI/Surgical Indications: CARIOUS TEETH; SKIN TAG LEFT UPPER EYE LID Procedure Description: Tejas Manjarrez was brought to the operating room and placed under general anesthesia via nasoendotracheal tube. Appropriate monitors were placed and the patient's position waschecked and all prominent bony locations padded. The patient was then prepped and draped in the standard fashion for behavioral scientist. The oral cavity was suctioned and an oral pharyngeal pack was placed. 12 cc's of 1% Xylocaine with 1-200,000 epinephrine was used to infiltrate the surgical sites both in the upper and lower jaw. surgical extractions requiring incision and elevation of soft tissue as well as removal of bone or division of teeth was performed on teeth #'s 5, 6, 7, 8, 9, 10, 11, 12, 20, 21, 22, 23, 24, 25, 26, 27 and 28. alveoloplasties were performed in all four quadrants with the use of bone files and rongeurs. mucoperisteum was closed with running and interrupted 3-0 chromic suture. Attention was then turned to the left upper eyelid which was prepped with ophthalmic betadeine. Point five cc's of 2%lido qwith epi was infiltrated into the upper left lid and the excess papillomatous skin was grasped with rogers hiral forceps and 15C blade used to make a transverse incision elipically around the lesion. The lesion was then excised with scissors and sent to pathology for histology. Good hemostasis was noted and the skin was coapted with two #6-0 fast absorb chromic suture. The oral cavity was then carefully suctioned and the oral pharyngeal pack was removed. An oral gastric tube was passed to empty the stomach. The patient was awakened, extubated and brought to the recovery room in satisfactory condition having tolerated the procedure well with a minimum of blood loss. Infection Bundle used? No Attestation: Case Date: 02/27/2019 I performed this procedure without the involvement of a resident. DARÍO LOW MD 02/27/2019 documented in this encounter Plan of Treatment Not on file documented as of this encounter Procedures Procedure Name Priority Date/Time Associated Diagnosis Comments SPECIMEN TO PATHOLOGY Routine 02/27/2019 9:26 AM EDT SURGICAL PATHOLOGY REPORT Routine 02/27/2019 9:23 AM EDT Excision Lesion Benign Scalp, Nck, Hnd, Ft, Gnt, More Than 4.0 Cm ([id number]) 02/27/2019 7:30 AM EDT CARIES FRACTURED TEETH ALVEOPLASTY,IN CONJUNCTION WITH EXTRACTIONS,PER QUADRANT,ENT (WRVU 3.19) 02/27/2019 7:30 AM EDT CARIES FRACTURED TEETH SURGICAL EXTRACTIONS REQUIRING ELEVATION OF MUCOPERIOSTEAL FLAP AND REMOVAL OF BONE OR SECTION OF TOOTH (WRVU 1.09) 02/27/2019 7:30 AM EDT CARIES FRACTURED TEETH documented in this encounter Results * Specimen to Pathology (02/27/2019 9:26 AM EDT) AP Specimen 02/27/2019 9:26 AM EDT 02/27/2019 9:26 AM EDT Narrative [facility] - 02/27/2019 9:26 AM EDT Specimen requisition ordered. ??Separate Pathology report to follow Daroí Low MD PATHOLOGY/CYTOLOGY O RDERABLES Performing Organization Address City/State/[facility] Co de Phone Number [facility] [place] [address] * Surgical Pathology Report (02/27/2019 9:23 AM EDT) Final Diagnosis [id number] ? Location: [facility]; [facility]; A The signing pathologist has (i) examined the relevant preparation(s) for the specimen(s) and (ii) rendered or confirmed the diagnosis(es). . ?Surgical Pathology DIAGNOSIS Skin, left upper eye lid skin tag, excision: - Fibroepithelial polyp Electronically signed by: ??Juan A Duque MD Verified: ??03/01/2019 ?[address], Bone & Soft Tissue Pathologist Performed at: ??-[facility] Dept. of Pathology, [place], [place] CLINICAL INFORMATION Specimen Submitted: A - Skin, left upper eye lid skin tag, excision (1) Clinical History and Diagnosis: Carries, fractured teeth, left upper eyelid skin tag SPECIMEN PROCESSING A - Labeled/Fixative: Papilloma, fresh. Quantity/Size: ??Single, 0.7 x 0.4 x 0.3 cm. Tissue Description: Shave of a pink, pedunculated, fleshy skin papule. Sections/Processin g: Inked, bisected and entirely submitted in 1 cassette labeled A1. sns 03/01/2019 12:44 PM EDT [facility] SPECIMEN FROM SKIN / Unknown 02/27/2019 9:23 AM EDT 02/27/2019 9:23 AM EDT Darío Low MD PATHOLOGY/CYTOLOGY O ANGELIKA [facility] [place] [address] documented in this encounter Visit Diagnoses Not on filedocumented in this encounter Administered Medications Inactive Administered Medications - up to 3 most recent administrations Medication Order MAR Action Action Date Dose Rate Site acetaminophen (TYLENOL) tablet 1,000 mg 1,000 mg, Oral, ONCE, 1 dose, On Mon02/27/19 at 0715, Administer with SIP of H2O only., Day of Surgery (Day of Procedure), Routine Given 02/27/2019 7:15 AM EDT 1,000 mg fentaNYL (PF) 50mcg/mL injection 12.5-25 mcg, Intravenous, EVERY 5 MIN PRN, Starting on Mon02/27/19 at 1027, Until Mon02/27/19 at 1501, Pain, Give 12.5 mcg every 5 minutes PRN for mild to moderate pain (1-5) Give 25 mcg every 5 minutes PRN for moderate to severe pain (6-10). Hold for respiratory rate less than 10 per minute. Maximum dose 250 mcg over one hour. If ordered with hydromorphone or morphine, give hydromorphone or morphine first and use fentanyl for breakthrough pain., PACU Recovery, Routine Given 02/27/2019 11:01 AM EDT 12.5 mcg hydrocortisone 1 % ointment ONCE PRN, Starting on Mon02/27/19 at 0811, Until Mon02/27/19 at 1501, Intra-Operative (Intra-Procedure) Given 02/27/2019 8:11 AM EDT 1 Tube ibuprofen (ADVIL;MOTRIN) tablet 800 mg 800 mg, Oral, EVERY 8 HOURS PRN, Starting on Mon02/27/19 at 1027, Until Mon02/27/19 at 1501, Pain, May be given concomitantly with other analgesia. If both acetaminophen and ibuprofen ordered, please give acetaminophen first for pain. If pain not relieved in 30 minutes may administer ibuprofen, if ordered. Administer orally with milk or food to minimize GI irritation., Recovery (Recovery-Hospital Unit), Routine Given 02/27/2019 10:55 AM EDT 800 mg lactated ringers infusion 1,000 mL, at 100 mL/hr, Intravenous, CONTINUOUS, Starting on Mon02/27/19 at 0715, Until Mon02/27/19 at 1501, Day of Surgery (Day of Procedure) New Bag 02/27/2019 7:19 AM EDT lidocaine (XYLOCAINE) 10 mg/mL (1 %) injection 3 mg 3 mg (0.3 mL), Subcutaneous, ONCE PRN, 1 dose, Starting on Mon02/27/19 at 0649, Until Mon02/27/19 at 0703, for discomfort with PIV insertion, Day of Surgery (Day of Procedure), Routine Given 02/27/2019 7:03 AM EDT 3 mg lidocaine-EPINEPHrine 1.5 %-1:200,000 injection ONCE PRN, Starting on Mon02/27/19 at 0810, Until Mon02/27/19 at 1501, Intra-Operative (Intra-Procedure), Routine Given 02/27/2019 9:20 AM EDT 0.2 mLs 19- Surgical Site Given 02/27/2019 8:10 AM EDT 15 mLs 19 - Surgical Site naloxone (NARCAN) injection 0.04 mg 0.04 mg, Intravenous, EVERY 5 MIN PRN, Starting on Mon02/27/19 at 1027, Until Mon02/27/19 at 1501, Opioid Reversal, for respiratory rate less than 6 or unresponsive., May repeat every 5 minutes to increase respiratory rate. DO NOT exceed 0.12 mg total dose. Notify anesthesia immediately if administered., PACU Recovery, Routine oxyCODONE (ROXICODONE) immediate release tablet 5 mg 5 mg, Oral, ONCE PRN, 1 dose, Starting on Mon02/27/19 at 1150, Until Mon02/27/19 at 1210, Pain, For severe (>7/10) pain, Routine Given 02/27/2019 12:10 PM EDT 5 mg povidone-iodine 5 % ophthalmic solution ONCE PRN, Starting on Mon02/27/19 at 0934, Until Mon02/27/19 at 1501, Intra-Operative (Intra-Procedure), Routine Given 02/27/2019 9:34 AM EDT 30 mLs promethazine (PHENERGAN) injection 12.5 mg 12.5 mg, Intravenous, EVERY 30 MIN PRN, Nausea, Starting on Mon02/27/19 at 1027, 2 doses, Until Mon02/27/19 at 1501, VESICANT - Dilute with a minimum of 10 mL saline. LARGE VEIN only. Inject over 10 minutes into the farthest port of a running IV infusion. Remain with the patient and STOP infusion immediately if patient reports burning. Avoid extravasation. If multiple antiemetics are ordered, use ondansetron first and if ineffective use prochlorperazine second and if ineffective use promethazine., PACU Recovery sodium chloride 0.9 % (flush) flush 5-20 mL 5-20 mL, Intravenous, EVERY 1 MIN PRN, Starting on Mon02/27/19 at 0649, Until Mon02/27/19 at 1501, flush, Flush pertains to all indwelling lines. Flush per protocol found in the job aid using the link provided on this medication record., Day of Surgery (Day of Procedure), Routine documented in this encounter Active and Recently Administered Medications Times are shown in EDT. Scheduled Medication Order 02/25/2019 02/26/2019 02/27/2019 acetaminophen (TYLENOL) tablet 1,000 mg (COMPLETED) 1,000 mg, Oral, ONCE, 1 dose, On Mon02/27/19 at 0715, Administer with SIP of H2O only., Day of Surgery (Day of Procedure), Routine 0715 (Given - Provid er: Shanon Ponce) ampicillin-sulbactam (UNASYN) 3 g vial attach to sodium chloride 0.9% 100 mL Mini-Bag Plus (COMPLETED) 3 g, Intravenous, ONCE, 1 dose, On Mon02/27/19 at 0730, Administer over 30 Minutes, Warning Vesicant/Irritant Medication , Day of Surgery (Day of Procedure), Indication for (Active or Suspected): Prophylaxis 0755 (New Bag - Prov ider: Daniel Rowe) Continuous Medication Order 02/25/2019 02/26/2019 02/27/2019 lactated ringers infusion 1,000 mL, at 100 mL/hr, Intravenous, CONTINUOUS, Starting on Mon02/27/19 at 0715, Until Mon02/27/19 at 1501, Day of Surgery (Day of Procedure) 0719 (New Bag - Prov ider: Daniel Rowe)0808 (Anesthesia Volume Adjustment - Provider: Daniel Rowe)0854 (Anesthesia Volume Adjustment - Provider: Daniel Rowe)0936 (Anesthesia Volume Adjustment - Provider: Daniel Rowe) lactated ringers infusion 1,000 mL, at 100 mL/hr, Intravenous, CONTINUOUS, Starting on Mon02/27/19 at 1045, Until Mon02/27/19 at 1501, Recovery (Recovery-Hospital Unit) 1045 (Due) PRN Medication Order 02/25/2019 02/26/2019 02/27/2019 acetaminophen (TYLENOL) tablet 500 mg 500 mg, Oral, EVERY 4 HOURS PRN, Starting on Mon02/27/19 at 1027, Until Mon02/27/19 at 1501, Pain, May be given concomitantly with other analgesia. If both acetaminophen and ibuprofen ordered, please give acetaminophen first for pain. If pain not relieved in 30 minutes may administer ibuprofen, if ordered. Maximum dose of acetaminophen is 4000 mg from all sources in 24 hours., Recovery (Recovery-Hospital Unit), Routine fentaNYL (PF) 50mcg/mL injection 12.5-25 mcg, Intravenous, EVERY 5 MIN PRN, Starting on Mon02/27/19 at 1027, Until Mon02/27/19 at 1501, Pain, Give 12.5 mcg every 5 minutes PRN for mild to moderate pain (1-5) Give 25 mcg every 5 minutes PRN for moderate to severe pain (6-10). Hold for respiratory rate less than 10 per minute. Maximum dose 250 mcg over one hour. If ordered with hydromorphone or morphine, give hydromorphone or morphine first and use fentanyl for breakthrough pain., PACU Recovery, Routine 1101 (Given - Provid er: Shanon Ponce) hydrocortisone 1 % ointment (CANCELED) ONCE PRN, Starting on Mon02/27/19 at 0811, Until Mon02/27/19 at 1501, Intra-Operative (Intra-Procedure) 0811 (Given - Provid er: Darío Low MD - Comment: small amt applied on lips) ibuprofen (ADVIL;MOTRIN) tablet 800 mg 800 mg, Oral, EVERY 8 HOURS PRN, Starting on Mon02/27/19 at 1027, Until Mon02/27/19 at 1501, Pain, May be given concomitantly with other analgesia. If both acetaminophen and ibuprofen ordered, please give acetaminophen first for pain. If pain not relieved in 30 minutes may administer ibuprofen, if ordered. Administer orally with milk or food to minimize GI irritation., Recovery (Recovery-Hospital Unit), Routine 1055 (Given - Provid er: Shanon Ponce) lidocaine (XYLOCAINE) 10 mg/mL (1 %) injection 3 mg (COMPLETED) 3 mg (0.3 mL), Subcutaneous, ONCE PRN, 1 dose, Starting on Mon02/27/19 at 0649, Until Mon02/27/19 at 0703, for discomfort with PIV insertion, Day of Surgery (Day of Procedure), Routine 0703 (Given - Provid er: Shanon Ponce) lidocaine-EPINEPHrine 1.5 %-1:200,000 injection (CANCELED) ONCE PRN, Starting on Mon02/27/19 at 0810, Until Mon02/27/19 at 1501, Intra-Operative (Intra-Procedure), Routine 0810 (Given - Provid er: Darío Low MD)0920 (Given - Provider: Darío Low MD) naloxone (NARCAN) injection 0.04 mg 0.04 mg, Intravenous, EVERY 5 MIN PRN, Starting on Mon02/27/19 at 1027, Until Mon02/27/19 at 1501, Opioid Reversal, for respiratory rate less than 6 or unresponsive., May repeat every 5 minutes to increase respiratory rate. DO NOT exceed 0.12 mg total dose. Notify anesthesia immediately if administered., PACU Recovery, Routine ondansetron (ZOFRAN) injection 4 mg 4 mg, Intravenous, ONCE PRN, 1 dose, Starting on Mon02/27/19 at 1027, Until Mon02/27/19 at 1501, Nausea, Vomiting, Recovery (Recovery-Hospital Unit) oxyCODONE (ROXICODONE) immediate release tablet 5 mg (COMPLETED) 5 mg, Oral, ONCE PRN, 1 dose, Starting on Mon02/27/19 at 1150, Until Mon02/27/19 at 1210, Pain, For severe (>7/10) pain, Routine 1210 (Given - Provid er: Mira Newman RN) povidone-iodine 5 % ophthalmic solution (CANCELED) ONCE PRN, Starting on Mon02/27/19 at 0934, Until Mon02/27/19 at 1501, Intra-Operative (Intra-Procedure), Routine 0934 (Given - Provid er: Darío Low MD - Comment: used for prep) promethazine (PHENERGAN) injection 12.5 mg 12.5 mg, Intravenous, EVERY 30 MIN PRN, Nausea, Starting on Mon02/27/19 at 1027, 2 doses, Until Mon02/27/19 at 1501, VESICANT - Dilute with a minimum of 10 mL saline. LARGE VEIN only. Inject over 10 minutes into the farthest port of a running IV infusion. Remain with the patient and STOP infusion immediately if patient reports burning. Avoid extravasation. If multiple antiemetics are ordered, use ondansetron first and if ineffective use prochlorperazine second and if ineffective use promethazine., PACU Recovery sodium chloride 0.9 % (flush) flush 5-20 mL 5-20 mL, Intravenous, EVERY 1 MIN PRN, Starting on Mon02/27/19 at 0649, Until Mon02/27/19 at 1501, flush, Flush pertains to all indwelling lines. Flush per protocol found in the job aid using the link provided on this medication record., Day of Surgery (Day of Procedure), Routine documented in this encounter Care Teams [employer] Lieutenant Relationship Specialty Start Date End Date Josh Zarate MD PCP - General Family Medicine 12/20/18 03/05/23 documented as of this encounter
--- OUTSIDE RECORDS SUMMARY | 2024-05-06 18:34 | XMS_ITS | Encounter Summary ---
Author Organization [facility] [place] [address] Care Team Providers Care Inventory Management Specialist Name Role Phone Josh Zarate MD Primary Care Provider [phone] Encounter Details Date Type Department Care Team (Late st Contact Info) Description 02/27/2019 7:28 AM EDT Anesthesia Event [place] [address] Brian Cabral MD [facility] [place] [address] Daniel Rowe MD [facility] [place] [address] Anesthesia Record Procedure Summary Procedure Name Responsible Anesthesiologist Anesthesia Start Time Anesthesia Stop Time SURGICAL EXTRACTIONS REQUIRING ELEVATION OF MUCOPERIOSTEAL FLAP AND REMOVAL OF BONE OR SECTION OF TOOTH (WRVU 1.09) Brian Cabral MD 02/27/19 0728 02/27/19 0951 Events Date Time Event Comment 02/27/2019 0714 0728 AN Verify 0728 Start 0732 An Start Data 0743 An Induction 0748 An Intubation 0750 Anesthesia Ready 0802 Procedure Start 0815 Break/Relief In Brian Mcmahan MD 0832 Break/Relief Out 0917 Procedure Stop Stop tooth ex traction 0920 Procedure Start Start skin t ag excision 0928 Procedure Stop 0940 Extubation/LMA Out 0942 an stop data 0948 Recovery or ICU Handoff Nisha ent care was transferred to the destination unit staff after review of the patient's medical history, current anesthetic/surgical status and plan, according to the Provider Handoff Checklist. 0951 Stop Meds Name Total Midazolam 2 mg fentaNYL 50 mcg IV Lidocaine 100 mg Propofol 250 mg Rocuronium 50 mg PHENYLephrine 720 mcg Ondansetron 4 mg Dexamethasone 8 mg Neostigmine 2.5 mg Glycopyrrolate 0.45 mg ampicillin-sulbactam (UNASYN ) 3 g vial attach to sodium chloride 0.9% 100 mL Mini-Bag Plus 3 g PHENYLephrine INF 2,790 mcg lactated ringers infusion 900 mL * Agents Name O2 Air N2O Sevoflurane (et) * Blood No blood administrations on file. Lines, Drains, and Airways Type Details Placement Removal Incision 02/27/19; other (see comments) (Oral/Mouth); 02/21/22 (LDA cleanup utility RA#[id number]); 1715 (LDA cleanup utility RA#[id number]) 02/27/19 0000 by Wanda Garcia RN 02/21/22 1715 by Emma Turpin Incision 02/27/19; eyelid; 02/21/22 (LDA cleanup utility RA#[id number]); 1715 (LDA cleanup utility RA#[id number]) 02/27/19 0000 by Wanda Garcia RN 02/21/22 1715 by Emma Turpin (RETIRED) Peripheral IV Line - Single Lumen 02/27/19; 0703; median cubital vein (antecubital fossa), right; [id number] catheter system; 20 gauge, 1 in length; Shanon Ponce RN ; distraction, intradermal injection, tolerated well, appears comfortable; 0; no longer indicated, removed per policy/procedure, catheter/device intact; 02/27/19; 1251 02/27/19 0703 by Shanon Simon APRN 02/27/19 1251 by Shanon Simon APRN ETT Mask Ventilation: Ea sy (1); ETT Type: Cuffed, Nasal, HARMONY; ETT Size: 6.5 mm; Mac Blade: 4; Notes: Asleep, Pre-O2, Cricoid Pressure, Stylette; Attempts: 1; Laryngoscopy Grade: 1; ETT Placement Verified By: Auscultation, Capnometry, Visual; Inserted by: Daniel Rowe MD; Removal Date: 02/27/19; Removal Time: 93902/27/19 0748 by Daniel Rowe MD 02/27/19 0940 by Daniel Rowe MD documented in this encounter Social History Tobacco Use Types Packs/Day Years Used Date Smoking Tobacco: Former Cigarettes Smokeless Tobacco: Current Chew Comments:quit 1999 Sex and Gender Information Value Date Recorded Sex Assigned at Not on file Gender Identity Not on file Sexual Orientation Not on file documented as of this encounter OR Notes * Anesthesia Postprocedure Evaluation - Brian Cabral MD - 02/27/2019 10:33 AM EDT Department of Anesthesiology Post-procedure Note Patient: Tejas Manjarrez Procedure Summary Date: 02/27/19 Room / Location: [facility] OR [facility] MAIN OR Anesthesia Start: 727 Anesthesia Stop: 950 Procedures: SURGICAL EXTRACTIONS REQUIRING ELEVATION OF MUCOPERIOSTEAL FLAP AND REMOVAL OF BONE OR SECTION OF TOOTH (WRVU 1.09) (N/A ) ALVEOPLASTY,IN CONJUNCTION WITH EXTRACTIONS,PER QUADRANT,ENT (WRVU 4.06) (N/A ) EXCISION BENIGN LES, [id number] >4.0CM (WRVU 4.09) (Eye) Diagnosis: (CARIES FRACTURED TEETH) Surgeon: Darío Low MD Responsible Provider: Brian Cabral MD Anesthesia Type: general ASA Status: 2 All Anesthesia Providers: Anesthesiologist: Brian Cabral MD Compounding Technician: Daniel Rowe MD Vitals Value Taken Time BP 150/106 02/27/2019 10:30 AM Temp Pulse 87 02/27/2019 10:20 AM Resp 14 02/27/2019 10:20 AM SpO2 94 % 02/27/2019 10:31 AM Pain Level 0 02/27/2019 10:20 AM Vitals shown include unvalidated device data. Patient [facility] Level of Consciousness: Conscious but Sleepy Pain Management: Satisfactory Analgesia PONV: None Cardiovascular Status: At Baseline and Hemodynamically Stable Respiratory Status: Room Air, At Baseline and Stable Respiratory Status Postoperative Fluid Status: Possible Anesthetic Complications: NONE apparent at time of evaluation Final Primary Anesthesia Type: General (The anesthetic type performed was the same as planned.) Comments: * Anesthesia Preprocedure Evaluation - Brian Cabral MD - 02/26/2019 12:55 PM EDT Pre-Anesthesia Evaluation for: Tejas Manajrrez a 53 y.o. male. Procedure(s): SURGICAL EXTRACTIONS REQUIRING ELEVATION OF MUCOPERIOSTEAL FLAP AND REMOVAL OF BONE OR SECTION OF TOOTH (WRVU 1.09) ALVEOPLASTY,IN CONJUNCTION WITH EXTRACTIONS,PER QUADRANT,ENT (WRVU 4.06) There are no active problems to display for this patient. No past medical history on file. No past surgical history on file. Social History Tobacco Use ??? Smoking status: Former Smoker Years: 4.00 Types: Cigarettes ??? Smokeless tobacco: Current User Types: Chew ??? Tobacco comment: quit 2000 Substance Use Topics ??? Alcohol use: Not on file Social History Substance and Sexual Activity Drug Use Not on file No Known Allergies Medications: MAR and/or home medications have been reviewed. Physical Exam: There were no vitals filed for this visit. There is no height or weight on file to calculate BMI. Airway Assessment: Mallampati: III TM distance: >3 FB Neck ROM: full Cardiovascular Assessment: Rate: normal Pulmonary Assessment: (+) decreased breath sounds Dental Assessment: Comment: Poor dentition throughout Misc Assessment: IV access: Peripheral line Anesthesia Plan: ASA 2 general, with a(n) intravenous induction Tejas Manjarrez is a 53 YO, 92 kg male with several carious and fractured teeth presenting for fullmouth dental extractions. PMH significant for intellectual disability since , HLD, CHRISTIANO (not CPAP compliant), smokeless tobacco use, and mild COPD, asthma (did not use inhaler this am). No history of cardiac disease. No anesthesia records available. Denies any previous surgery. Plan: GETA with nasal intubation, standard monitors, adequate IV access. Patient seen and evaluated. Risks and benefits discussed. Appropriately NPO. No recent URI. Brian Cabral MD Region - Other Informed Consent: Anesthetic plan and risks discussed with legal guardian. Plan discussed with resident and attending. PAT Clinic Note documented in this encounter Plan of Treatment Not on file documented as of this encounter Visit Diagnoses Not on filedocumented in this encounter Administered Medications Inactive Administered Medications - up to 3 most recent administrations Medication Order MAR Action Action Date Dose Rate Site ampicillin-sulbactam (UNASYN) 3 g vial attach to sodium chloride 0.9% 100 mL Mini-Bag Plus 3 g, Intravenous, ONCE, 1 dose, On Mon02/27/19 at 0730, Administer over 30 Minutes, Warning Vesicant/Irritant Medication , Day of Surgery (Day of Procedure), Indication for (Active or Suspected): Prophylaxis New Bag 02/27/2019 7:55 AM EDT 3 g dexamethasone (DECADRON) injection PRN, Starting on Mon02/27/19 at 0744, Until Mon02/27/19 at 0951, Anesthesia Intra-op, Routine Given 02/27/2019 7:44 AM EDT 8 mg fentaNYL 50 mcg/mL multi-dose injection PRN, Starting on Mon02/27/19 at 0739, Until Mon02/27/19 at 0951, Anesthesia Intra-op, Routine Given 02/27/2019 7:39 AM EDT 50 mcg glycopyrrolate (ROBINUL) multi-dose injection PRN, Starting on Mon02/27/19 at 0928, Until Mon02/27/19 at 0951, Anesthesia Intra-op, Routine Given 02/27/2019 9:28 AM EDT 0.45 mg lactated ringers infusion 1,000 mL, at 100 mL/hr, Intravenous, CONTINUOUS, Starting on Mon02/27/19 at 0715, Until Mon02/27/19 at 1501, Day of Surgery (Day of Procedure) New Bag 02/27/2019 7:19 AM EDT lidocaine (PF) (XYLOCAINE) 100 mg/5 mL (2 %) injection PRN, Starting on Mon02/27/19 at 0743, Until Mon02/27/19 at 0951, Anesthesia Intra-op, Routine Given 02/27/2019 7:43 AM EDT 100 mg midazolam (PF) (VERSED) multi-dose injection PRN, Starting on Mon02/27/19 at 0728, Until Mon02/27/19 at 0951, Anesthesia Intra-op, Routine Given 02/27/2019 7:32 AM EDT 1 mg Given 02/27/2019 7:28 AM EDT 1 mg neostigmine (BLOXIVERZ) injection PRN, Starting on Mon02/27/19 at 0928, Until Mon02/27/19 at 09, Anesthesia Intra-op, Routine Given 02/27/2019 9:28 AM EDT 2.5 mg ondansetron (ZOFRAN) injection PRN, Starting on Mon02/27/19 at 0916, Until Mon02/27/19 at 950, Anesthesia Intra-op, Routine Given 02/27/2019 9:16 AM EDT 4 mg PHENYLephrine (PAT-SYNEPHRINE) 20 mg in sodium chloride 250 mL (standard ADULT & Pedi greater than 20kg) infusion CONTINUOUS PRN, Starting on Mon02/27/19 at 0814, Until Mon02/27/19 at 950, Anesthesia Intra-op, Routine Rate/Dose Change 02/27/2019 9:21 AM EDT 20 mcg/min 15 mL/hr Rate/Dose Change 02/27/2019 8:22 AM EDT 40 mcg/min 30 mL/h r Rate/Dose Change 02/27/2019 8:19 AM EDT 30 mcg/min 22.5 mL /hr PHENYLephrine in NS (PF) (PAT-SYNEPHRINE) 0.8 mg/10 mL (80 mcg/mL) multi-dose injection Syrg PRN, Starting on Mon02/27/19 at 0758, Until Mon02/27/19 at 09, Anesthesia Intra-op, Routine Given 02/27/2019 8:22 AM EDT 80 mcg Given 02/27/2019 8:19 AM EDT 80 mcg Given 02/27/2019 8:16 AM EDT 80 mcg propofol (DIPRIVAN) 10 mg/mL bolus injection (Anesthesia) PRN, Starting on Mon02/27/19 at 0744, Until Mon02/27/19 at 09, Anesthesia Intra-op Given 02/27/2019 7:47 AM EDT 50 mg Given 02/27/2019 7:44 AM EDT 200 mg rocuronium (ZEMURON) multi-dose injection PRN, Starting on Mon02/27/19 at 0744, Until Mon02/27/19 at 09, Anesthesia Intra-op, Routine Given 02/27/2019 7:44 AM EDT 50 mg documented in this encounter Care Teams Inventory Management Specialist Relationship Specialty Start Date End Date Josh Zarate MD PCP - General Family Medicine 12/20/18 03/05/23 documented as of this encounter
--- OUTSIDE RECORDS SUMMARY | 2024-05-06 18:34 | XMS_ITS | Encounter Summary ---
Author Organization [facility] [place] [address] Care Team Providers Care Radio Tester Name Role Phone Josh Zarate MD Primary Care Provider [phone] Reason for Visit * Reason Comments Establish Care Full mouth clearanc e * Consultation (Routine) - Specialty Diagnoses / Procedures Referred By Contact Referred To Contact Maxillofacial Surgery Diagnoses Needs full mouth clearance. Very nervous with needle, needs GA. Mentally handicapped from Head Trauma Tyrell Chandra, DMD [address] [place] [address] Darío Low MD [facility]AL [facility] MAXILLOF[place] [address] Referral ID Status Reason Start Date Expiration Date V isits Requested Visits Authorized [id number] Consult, Test & Treat PCP Updated and/or Approved 09/21/2018 03/23/2019 6 6 Encounter Details Date Type Department Care Team (Late st Contact Info) Description 12/20/2018 9:00 AM EDT Office Visit [place] [address] Darío Low MD [facility] DR COLES MAXILLMICHEAL [place] [address] Dental caries Social History Tobacco Use Types Packs/Day Years Used Date Smoking Tobacco: Former Cigarettes Smokeless Tobacco: Current Chew Comments:quit 1999 Sex and Gender Information Value Date Recorded Sex Assigned at Not on file Gender Identity Not on file Sexual Orientation Not on file documented as of this encounter Last Filed Vital Signs Vital Sign Reading Time Taken Comments Blood Pressure - - Pulse - - Temperature - - Respiratory Rate - - Oxygen Saturation - - Inhaled Oxygen Concentration - - Weight 91.6 kg (202 lb) 12/20/2018 8:26 AM EDT Height 172.7 cm (5' 8) 12/20/2018 8:26 AM EDT Body Mass Index 30.71 12/20/2018 8:26 AM EDT documented in this encounter Progress Notes * Darío Low MD - 12/20/2018 9:00 AM EDT Images from the original note were not included. Oral & Maxillofacial Surgery Extraction Consult Tejas Manjarrez is a 53 y.o. male who is referred to us by for consultation regarding full mouth dental extractions. A complete history of the Tejas 's symptoms and physical signs were reviewed with attention to initial findings and progression, pain, bleeding, swelling, lumps, bumps, drainage, dysphagia, odynophagia, paresthesia, dysarthria and systemic effects. Pertinent notations from today's history: ?? Denies blood thinners ?? Sleep apnea- refuses to wear CPAP mask ?? Denies prior facial trauma ?? Denies head trauma- disability since ?? Denies major medical problems ?? Denies prior surgery ?? Denies chewing or swallowing difficulties ?? Non smoker ?? Pain in lower incisors- sensitivity ?? 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 Patient has mild intellectual disability from Past Medical and Dental History: No past medical history on file. See chart There is no problem list on file for this patient. anxiety, fear of needles, Obstructive sleep apnea, hypertension, diverticulosis. No known allergies ??? cholecalciferol, Vitamin D3, 2,000 unit Tablet ??? finasteride (PROSCAR) 5 mg Tablet ??? gabapentin (NEURONTIN) 300 mg Capsule ??? gabapentin (NEURONTIN) 600 mg Tablet ??? MAGTAB 84 mg Tablet Sustained Release ??? REGULOID Powder ??? QUEtiapine (SEROQUEL) 50 mg Tablet ??? simvastatin (ZOCOR) 40 mg Tablet ??? SPIRIVA RESPIMAT 1.25 mcg/actuation Mist ??? venlafaxine (EFFEXOR) 100 mg Tablet ??? venlafaxine (EFFEXOR) 25 mg Tablet ??? polyethylene glycol (MIRALAX) 17 gram Powder in Packet ??? loratadine (CLARITIN) 10 mg Tablet No Known Allergies ROS with attention to cardiac, pulmonary, hepatic, renal, neurologic and dermatologic systems reviewed with relevant findings as noted. Physical Exam: Extraoral exam conducted including facial symmetry, sensory and motor function, alertness and appropriateness to questions and commands, range of jaw motion, TMJ function and skeletal architecture. Neck exam conducted with attention to normal musculature, vasculature and potential adenopathy. Intraoral exam including evaluation of tongue surface and consistency, floor of mouth, buccal and labial mucosa as well as maxillary and mandibular vestibules, hard and soft palate including soft palate elevation and oropharynx as well as dentition, dental arches, occlusion and salivary flow. Pertinent and remarkable findings include: ?? Full range of mandibular motion ?? Very cooperative and follows commands without difficulty ?? Oropharynx unremarkable ?? Hard and soft palate unremarkable ?? No max or jose enrique lynn ?? Buccal mucosa WNL ?? Dorsal and ventral aspects of tongue unremarkable ?? Multiple fractured and carious teeth throughout the maxilla and mandible ?? Dentition is very firm ?? Teeth needing to be extracted:# 5,6,7,8,9,10,11,12,20,21,22,23,24,25,26,27,28,29 ?? No cervical adenopathy Radiographic Examination: Periapical films documenting the fractured teeth Impression: Several carious and fractured teeth with no periodontal involvement and intellectual disability as stated living in home with aids, food preparation, etc. Recommendations and Plans: EXT needed 5,6,7,8,9,10,11,12,20,21,22,23,24,25,26,27,28,29 with GA at the OSC 4 quadrants of alveoplasty Recommending the use of ora-gel for the lower anterior teeth - the area of greatest discomfort. Anticipated benefits and potential risks of the surgical intervention discussed were carefully reviewed with the patient and patients retail customer service representative including but not limited to bleeding, infection, soft tissue dehiscence, delayed wound healing, nerve paresthesias and palsies, sinus injuries, injuries to adjacent tissues both hard and soft and possible need for additional surgery. Questions regarding the proposed intervention were encouraged and answered. I indicated that not all patients undergoing full mouth extractions are able to tolerate dentures and that three months of healing prior to impressions for dentures would be required for healing. Time Statement: Thirty minutes was spent with the patient greater than 20 minutes of which included direct discussion regarding the clinical and radiographic findings where indicated, the potential diagnoses and a review of the natural history as well as treatment alternatives, their benefits and attendant risks. Tejas and his urgent care technician were given an opportunity to ask questions and instructed to contact us if further questions arise following the consultation. He had not used narcotics for his dentition. ILynne CDA, am acting as a scribe for Dr. Low. All work documented was performedby Dr. Low. Darío Castillo, performed the above scribed service and agree with the accuracy of the note. documented in this encounter Plan of Treatment Not on file documented as of this encounter Visit Diagnoses Diagnosis Dental caries Unspecified dental caries documented in this encounter Care Teams Radio Tester Relationship Specialty Start Date End Date Josh Zarate MD PCP - General Family Medicine 12/20/18 03/05/23 documented as of this encounter
--- OUTSIDE RECORDS SUMMARY | 2024-05-06 18:34 | XMS_ITS | Referral Summary ---
Author Organization [facility] Address [address] [place] [address] Care Team Providers Care Marketing Performance Analyst Name Role Phone Josh Zarate MD Primary Care Provider Social History Tobacco Use Types Packs/Day Years Used Date Smoking Tobacco: Never Assessed Interpersonal Safety Answer Date Record ed Physically Hurt Never 01/26/2020 Verbally Threaten Not on file 01/26/2020 Sex and Gender Information Value Date Recorded Sex Assigned at Not on file Legal Sex Male 17:40 EDT Gender Identity Not on file Sexual Orientation Not on file Plan of Treatment Not on file Insurance [place] Care Teams Marketing Performance Analyst Relationship Specialty Start Date End [place] [address] PCP - General 09/20/17
--- OUTSIDE RECORDS SUMMARY | 2024-05-06 18:34 | XMS_ITS | Encounter Summary ---
[facility] Organization [facility] [place] [place] [address] Care Team Providers Care Support Team Member Name Role Phone Josh Zarate MD Primary Care Provider [phone] Reason for Referral * Consultation (Routine) - Closed Specialty Diagnoses / Procedures Referred By Teja beard Referred To Contact Otolaryngology Diagnoses Obstructive sleep apnea (adult) (pediatric) Josh Zarate MD [address] [place] [address] [place] [address] [facility] Otolaryngology [address] [place] [phone] Referral ID Status Reason Start Date Expiration Date V isits Requested Visits Authorized [id number] Closed Consult, Test & Treat PCP Updated and/or Approved 05/02/2023 05/01/2024 6 6 Encounter Details Date Type Department Care Team (Late st Contact Info) Description 05/02/2023 Transcribe Orders eD Incoming Referrals [phone] Josh Zarate MD [address] [place] [address] [address] [place], [place] [phone] Obstructive sleep apnea (adult) (pediatric) Social History Tobacco Use Types Packs/Day Years Used Date Smoking Tobacco: Former Cigarettes Smokeless Tobacco: Current Chew Comments:quit 1999 Sex and Gender Information Value Date Recorded Sex Assigned at Not on file Gender Identity Not on file Sexual Orientation Not on file documented as of this encounter Plan of Treatment Scheduled Referrals Name Type Priority Associated Diagnoses Orde r Schedule Referral to ENT Outpatient Referral Routine Obstructive sleep apnea (adult) (pediatric) Ordered: 05/02/2023 documented as of this encounter Visit Diagnoses Diagnosis Obstructive sleep apnea (adult) (pediatric) documented in this encounter Care Teams Support Team Member Relationship Specialty Start Date End Date Josh Zarate MD PCP - General Family Medicine 03/06/23 documented as of this encounter
--- OUTSIDE RECORDS SUMMARY | 2024-05-06 18:34 | XMS_ITS | Encounter Summary ---
Author Organization [facility] Address [address] [place] [address] Care Team Providers Care Casing Grader Name Role Phone Josh Zarate MD Primary Care Provider [phone] Encounter Details Date Type Department Care Team (Late st Contact Info) Description 03/07/2023 Lab Requisition [facility] Pathology & Laboratory Medicine - [facility] [address] [place] [address] Dilma Galicia, DO [address] [place], [place] [id number] Diverticulosis of large intestine without perforation or abscess without bleeding; Diaphragmatic hernia without obstruction or gangrene; Gastro-esophageal reflux disease without esophagitis; Obesity, unspecified; Other forms of dyspnea; Chronic obstructive pulmonary disease, unspecified (HCC-CMS); Constipation, unspecified; Hematemesis; Benign neoplasm, unspecified site; Dysphagia, unspecified Social History Tobacco Use Types Packs/Day Years [...] as of this encounter Plan of Treatment Not on file documented as of this encounter Procedures Procedure Name Priority Date/Time Associated Diagnosis Comments SURGICAL PATHOLOGY Today 03/07/2023 7: 45 EDT Diverticulosis of large intestine without perforation or abscess without bleeding Diaphragmatic hernia without obstruction or gangrene Gastro-esophageal reflux disease without esophagitis Obesity, unspecified Other forms of dyspnea Chronic obstructive pulmonary disease, unspecified (HCC-CMS) Constipation, unspecified Hematemesis Benign neoplasm, unspecified site Dysphagia, unspecified documented in this encounter Results * SURGICAL PATHOLOGY (03/07/2023 7:45 EDT) Note to Patient The following pathology results have been interpreted by your pathologist and may be available to you before your health provider has had the opportunity to review them. Please allow time for your provider to receive these results and explore management options, if applicable. 03/08/2023 17:27 [facility] Final Diagnosis A. JEJUNUM, PROXIMAL, BIOPSY: - Small intestinal mucosa with no significant diagnostic abnormalities. B. DUODENUM, BULB, BIOPSY: - Duodenal mucosa with no significant diagnostic abnormalities. C. STOMACH, ANTRUM, BIOPSY: - Transitional mucosa with reactive (chemical) gastropathy. - Negative for Helicobacter pylori on H&E stained sections. D. STOMACH, GREATER CURVATURE, BIOPSY: - Gastric fundic mucosa with no significant diagnostic abnormalities. - Negative for Helicobacter pylori on H&E stained sections. E. GASTROESOPHAGEAL JUNCTION, BIOPSY: - Gastric cardiofundic-type mucosa with mild reactive changes. - Negative for intestinal metaplasia and dysplasia. F. ESOPHAGUS, DISTAL, BIOPSY: - Consistent with reflux esophagitis. 03/08/2023 17:27 [facility] Attestation By the signature below, the attending physician certifies that they have 1) personally conducted a gross and/or microscopic examination of the described specimen(s), and/or personally interpreted the results of laboratory testing of the described specimen(s), and 2) personally rendered or confirmed the above diagnosis. 03/08/2023 17:27 [facility] at 1726 Clinical History Diverticulosis 03/08/2023 17:27 [facility] Gross Description A. Received in formalin labelled with proper patient identification (initials G, D) and 1. Proximal jejunum is a single joya-brown tissue (0.6 x 0.3 x 0.1 cm). Submitted intact in A1. B. Received in formalin labelled with proper patient identification (initials G, D) and 2. Duodenal bulb is a single joya tissue (0.3 x 0.3 x 0.1 cm). Submitted intact in B1. C. Received in formalin labelled with proper patient identification (initials G, D) and 3. Antrum is a single joya tissue (0.3 x 0.2 x 0.1 cm). Submitted intact in C1. D. Received in formalin labelled with proper patient identification (initials G, D) and 4. Greater curve is a single joya focally brown tissue (0.6 x 0.2 x 0.1 cm). Submitted intact in D1. E. Received in formalin labelled with proper patient identification (initials G, D) and 5. GE junction are 4 transparent joya to joya tissues (0.6 x 0.3 x 0.1 cm to 0.1 x 0.1 by less than 0.1 cm). Entirely submitted in E1. Please note the smallest tissue may not survive processing. F. Received in formalin labelled with proper patient identification (initials G, D) and 6. Distal esophagus is a single joya-white tissue (0.3 x 0.1 x 0.1 cm). Submitted intact in F1. Kymberly Cruz 03/08/2023 7:49 03/08/2023 17:27 T [facility] Performing Lab [facility] 17:27 T [facility] Scanned Images 03/08/2023 17:27 [facility] Tissue ESOPHAGEAL STRUCTURE / Unknown 03/07/2023 7:45 EDT 03/07/2023 17:15 EDT Tissue specimen (specimen) STRUCTURE OF SMALL INTESTINE / Unknown 03/07/2023 7:45 EDT 03/07/2023 17:15 EDT Tissue specimen (specimen) STOMACH STRUCTURE / Unknown 03/07/2023 7:45 EDT 03/07/2023 17:15 EDT Tissue specimen (specimen) STOMACH STRUCTURE / Unknown 03/07/2023 7:45 EDT 03/07/2023 17:15 EDT Tissue specimen (specimen) ESOPHAGEAL STRUCTURE / Unknown 03/07/2023 7:45 EDT 03/07/2023 17:15 EDT Tissue specimen (specimen) ESOPHAGEAL STRUCTURE / Unknown 03/07/2023 7:45 EDT 03/07/2023 17:15 EDT us Dilma Galicia DO PATHOLOGY ORDERABLES Final Re sult [facility] [address] [place] [address] documented in this encounter Visit Diagnoses Diagnosis Diverticulosis of large intestine without perforation or abscess without bleeding Diverticulosis of colon (without mention of hemorrhage) Diaphragmatic hernia without obstruction or gangrene Diaphragmatic hernia without mention of obstruction or gangrene Gastro-esophageal reflux disease without esophagitis Esophageal reflux Obesity, unspecified Other forms of dyspnea Chronic obstructive pulmonary disease, unspecified (HCC-CMS) Constipation, unspecified Hematemesis Benign neoplasm, unspecified site Dysphagia, unspecified documented in this encounter Care Teams Casing Grader Relationship Specialty Start Date End Date Josh Zarate MD [place] [address] PCP - General 09/20/17 documented as of this encounter
--- OUTSIDE RECORDS SUMMARY | 2024-05-06 18:34 | XMS_ITS | Clinical Summary ---
Author Organization [facility] Address [address] [place] [address] Care Team Providers Care Solid Propellant Processor Name Role Phone Josh Zarate MD Primary Care Provider [phone] Social History Tobacco Use Types Packs/Day Years Used Date Smoking Tobacco: Never Assessed Interpersonal Safety Answer Date Record ed Physically Hurt Never 01/26/2020 Verbally Threaten Not on file 01/26/2020 Sex and Gender Information Value Date Recorded Sex Assigned at Not on file Legal Sex Male 17:40 EDT Gender Identity Not on file Sexual Orientation Not on file Plan of Treatment Health Maintenance Due Date Last Done Comments Hepatitis C Screen 1965 COVID-19 Vaccine (2022-24 season) 2023 RSV Immunization ( o r 60+ Years) (1 - 1-dose 60+ series) 2023 Insurance [place] Care Teams Solid Propellant Processor Relationship Specialty Start Date End Date Josh Zarate MD [facility] [place] [address] PCP - General 09/20/17
--- OUTSIDE RECORDS SUMMARY | 2024-05-06 18:34 | XMS_ITS | Encounter Summary ---
Author Organization [facility] Address [address] [place] [address] Care Team Providers Care Marketing Coordinator Name Role Phone Josh Joy MD Primary Care Provider [phone] Encounter Details Date Type Department Care Team (Latest Contact Info) Description 09/18/2017 10:26 EDT - 09/18/2017 23:59 EDT Hospital Encounter [facility] [address] [place] [address] Unknown, Provider, Discharge Disposition: Auto Discharge Social History Tobacco Use Types Packs/Day Years Used Date Smoking Tobacco: Never Assessed Sex and Gender Information Value Date Recorded Sex Assigned at Not on file Legal Sex Male 17:40 EDT Gender Identity Not on file Sexual Orientation Not on file documented as of this encounter Discharge Disposition Disposition Code Departure Means Destination Auto Discharge Home documented in this encounter Plan of Treatment Not on file documented as of this encounter Visit Diagnoses Not on filedocumented in this encounter Care Teams Marketing Coordinator Relationship Specialty Start Date End Date Josh Joy MD [address] [place] [address] PCP - General 10/26/12 09/19/17 documented as of this encounter
--- OUTSIDE RECORDS SUMMARY | 2024-05-06 18:34 | XMS_ITS | Encounter Summary ---
Author Organization [facility] [place] [address] Care Team Providers Care Maintenance Team Member Name Role Phone Josh Zarate MD Primary Care Provider [phone] Reason for Referral * Consultation (Routine) - Closed Specialty Diagnoses / Procedures Referred By Teja beard Referred To Contact Sleep Center Diagnoses Sleep apnea, unspecified type Josh Zarate MD [address] [place] [address] [place] [address] [facility] [address] [place] [address] Referral ID Status Reason Start Date Expiration Date V isits Requested Visits Authorized [id number] Closed Consult, Test & Treat PCP Updated and/or Approved 04/11/2023 04/11/2024 6 6 Encounter Details Date Type Department Care Team (Late st Contact Info) Description 03/06/2023 Transcribe Orders eDH Incoming Referrals [phone] Josh Zarate MD [address] [place] [address] [address] [place], [place] [id number] Sleep apnea, unspecified type Social History Tobacco Use Types Packs/Day Years Used Date Smoking Tobacco: Former Cigarettes Smokeless Tobacco: Current Chew Comments:quit 1999 Sex and Gender Information Value Date Recorded Sex Assigned at Not on file Gender Identity Not on file Sexual Orientation Not on file documented as of this encounter Plan of Treatment Scheduled Referrals Name Type Priority Associated Diagnoses Orde r Schedule Referral to [facility] Disorders Center Outpatient Referral Routine Sleep apnea, unspecified type Ordered: 03/06/2023 documented as of this encounter Visit Diagnoses Diagnosis Sleep apnea, unspecified type documented in this encounter Care Teams Maintenance Team Member Relationship Specialty Start Date End Date Josh Zarate MD PCP - General Family Medicine 03/06/23 documented as of this encounter
--- OUTSIDE RECORDS SUMMARY | 2024-05-06 18:34 | XMS_ITS | Encounter Summary ---
Author Organization [facility] Address [address] [place] [address] Care Team Providers Care Platform Material Handling Supervisor Name Role Phone Unknown, Provider Primary Care Provider Unava ilable Encounter Details Date Type Department Care Team (Late st Contact Info) Description 10/23/2012 Results Only [facility] - [facility] ([facility] [address] [place], [place] [address] [address] MD [address] [place] [id number] Social History Tobacco Use Types Packs/Day Years [...] Procedure Name Priority Date/Time Associated Diagnosis Comments CYTOPATHOLOGY Routine 10/23/2012 0:00 EDT documented in this encounter Results * CYTOPATHOLOGY (10/23/2012 0:00 EDT) Pathology Report: CYTOPATHOLOGY REPORT Reports generated via electronic interface contain original data; however they are lacking the format of the original report. Caution should be taken when reading/interpreti ng unformatted reports. Name: ? DARVIN MANJARREZ ? Accession #: ? [id number] : ? 1965 (Age: 47) ??F ?Collect Date: ? 10/23/2012 Location: ? [facility] ? Receive Date: ? 10/25/2012 Provider: ? SPENCER LANE MD Copy to: ? CYTOLOGIC DIAGNOSIS: ? Urine, voided, cytologic evaluation: 1. ?Negative for malignant cells. 2. ? Mild acute inflammation. ?? Document reviewed and electronically signed by: ? DREA ARANGO MD Report Date: ??10/25/2012 17:17 By the signature above, the attending physician certifies that he/she has personally conducted a gross and/or microscopic examination of the described specimens and rendered or confirmed the above diagnosis. Specimen Type: ? Urine, Voided Clinical History: ? Hematuria; clinical diagnosis code: ??599.70 ? Gross Description: ? One vial of CytoLyt was received and processed by selective cellular enhancement technique. ? End of Report [facility] 10/23/2012 10/25/2012 8:[address] MD PATHOLOGY ORDERABLES Final Resul t [facility] [address] [place] [address] documented in this encounter Visit Diagnoses Not on filedocumented in this encounter Care Teams Platform Material Handling Supervisor Relationship Specialty Start Date End Date Unknown, Provider, PCP - General 10/25/12 10/25/12 documented as of this encounter
--- OUTSIDE RECORDS SUMMARY | 2024-05-06 18:34 | XMS_ITS | Clinical Summary ---
Author Organization [facility] Address [address] [facility] [place] [address] Care Team Providers Care Boiling Tub Operator Name Role Phone Josh Zarate MD Primary Care Provider [phone] Allergies No known active allergies Medications Medication Sig Dispensed Refills Start Date End Date Status cholecalciferol, Vitamin D3, 2,000 unit Tablet TAKE ONE TABLET BY MOUTH EVERY DAY 11/13/2018 Active finasteride (PROSCAR) 5 mg Tablet TAKE ONE TABLET BY MOUTH EVERY EVENING 1 10/11/2018 Active gabapentin (NEURONTIN) 300 mg Capsule TAKE ONE CAPSULE BY MOUTH AT NOON 12/11/2018 Active gabapentin (NEURONTIN) 600 mg Tablet TAKE 2 TABLETS BY MOUTH EVERY MORNING TAKE 1 TABLET BY MOUTH DAILY AT NOON AND TAKE 2 TABLETS BY MOUTH EVERY EVENING 11/13/2018 Active MAGTAB 84 mg Tablet Sustained Release TAKE 1 TABLET BY MOUTH TWICE A DAY WITH FOOD 11/13/2018 Active REGULOID Powder DISSOLVE 3.4 GRAMS IN 12 OUNCES OF FLUID AND DRINK BY MOUTH ONCE DAILY 11/09/2018 Active QUEtiapine (SEROQUEL) 50 mg Tablet TAKE ONE TABLET BY MOUTH THREE TIMES A DAY 12/11/2018 Active simvastatin (ZOCOR) 40 mg Tablet TAKE ONE TABLET BY MOUTH NIGHTLY 3 08/05/2018 Active SPIRIVA RESPIMAT 1.25 mcg/actuation Mist INHALE TWO PUFFS BY MOUTH EVERY DAY 12/11/2018 Active venlafaxine (EFFEXOR) 100 mg Tablet TAKE ONE TABLET BY MOUTH THREE TIMES A DAY 11/24/2018 Active venlafaxine (EFFEXOR) 25 mg Tablet TAKE ONE TABLET BY MOUTH THREE TIMES A DAY WITH 100 MG 11/13/2018 Active polyethylene glycol (MIRALAX) 17 gram Powder in Packet Take 17 g by mouth daily. Active loratadine (CLARITIN) 10 mg Tablet Take 10 mg by mouth daily. Active oxyCODONE (ROXICODONE) 5 mg Tablet Take 1 tablet by mouth every 6 hours as needed for Pain (For severe pain not responding to tylenol and ibuprofen.). 15 tablet 02/27/2019 Active Social History Tobacco Use Types Packs/Day Years Used Date Smoking Tobacco: Former Cigarettes Smokeless Tobacco: Current Chew Comments:quit 1999 Sex and Gender Information Value Date Recorded Sex Assigned at Not on file Gender Identity Not on file Sexual Orientation Not on file Last Filed Vital Signs Vital Sign Reading Time Taken Comments Blood Pressure 149/95 02/27/2019 11:45 AM EDT Pulse 87 02/27/2019 10:20 AM EDT Temperature 36.2 ??C (97.2 ??F) 02/27/2019 9:50 AM ED T Respiratory Rate 14 02/27/2019 10:20 AM EDT Oxygen Saturation 94% 02/27/2019 11:45 AM EDT Inhaled Oxygen Concentration - - Weight 90.1 kg (198 lb 9.6 oz) 02/27/2019 6:56 A M EDT Height 172.7 cm (5' 8) 12/20/2018 8:26 AM EDT Body Mass Index 30.2 12/20/2018 8:26 AM EDT Plan of Treatment Health Maintenance Due Date Last Done Comments CT Colonography 1965 Colonoscopy 1965 Colorectal Cancer Screening 1965 FIT DNA 1965 FIT 1965 Sigmoidoscopy (10 year) with FIT yearly 1965 Sigmoidoscopy 1965 HIV screen 1981 Hepatitis C Screening 1981 Tetanus/Diphtheria/Pertussis Vaccines (1 - Tdap) 03/26 Zoster vaccine (1 of 2) 2013 Advance Directive 2018 Covid-19 Vaccine ( - 2023- season) 2024 Influenza (Flu) vaccine (1 o f 1 - Influenza standard series) 02/25/2024 Advance Directives Documents on File Type Date Recorded Patient Aircraft Maintenance Technician Expl anation Personal Aircraft Maintenance Technician 09/21/2018 1:44 PM [facility] * Full Code (Latest Code Status on File) Date Activated Date Inactivated Comments 02/27/2019 7:12 AM 02/27/2019 3:06 PM Question Answer Comments Does patient have capacity to make decision: Yes Care Teams Boiling Tub Operator Relationship Specialty Start Date End Date Josh Zarate MD PCP - General Family Medicine 03/06/23
--- OUTSIDE RECORDS SUMMARY | 2024-05-06 18:34 | XMS_ITS | Encounter Summary ---
Author Organization [facility] [place] [address] Care Team Providers Care Underwriting Service Representative Name Role Phone Josh Zarate MD Primary Care Provider [phone] Encounter Details Date Type Department Care Team (Late st Contact Info) Description 02/27/2019 6:29 AM EDT - 02/27/2019 12:51 PM EDT Hospital Encounter [place] [id number] Darío Low MD [facility] [address] [place] [address] Discharge Disposition: Home Social History Tobacco Use Types Packs/Day Years [...] may be helpful. Most swelling will occur [id number] hours following the procedure. Mouth Rinse: Vigorous [...] can be reached during office hours at [phone]. documented in this encounter Medications at Time [...] MOUTH TWICE A DAY WITH FOOD 11/13/2018 REGULOID Powder DISSOLVE 3.4 GRAMS IN 12 OUNCES OF FLUID AND DRINK BY MOUTH ONCE DAILY 3 11/09/2018 QUEtiapine (SEROQUEL) 50 mg Tablet TAKE [...] as of this encounter Progress Notes * Shanon Ponce - 02/27/2019 12:57 PM EDT Patient [...] Chew ??? Tobacco comment: quit 2000 Substance and Sexual Activity ??? Alcohol use: Not on file ??? Drug use: Not on file ??? Sexual activity: Not on file Lifestyle ??? Physical activity: Days per week: Not on file Minutes per session: Not on file ??? Stress: Not on file Relationships ??? Social connections: Talks on phone: Not on file Gets together: Not on file Attends holiness service: Not on file Active member of [...] QUADRANT,ENT (WRVU 4.06) No flowsheet data found. [place] QUERY DATE: 02/27/19 Risk Assessment Category: [...] No future appointments. Darío Low DMD, MD chemical processing laborer documented in this encounter Miscellaneous Notes * Op Note - Darío Low MD - 02/27/2019 9:37 AM EDT [facility] Operative Note Patient Name: Tejas Manjarrez : [id number] MR#: [id number] Case Date: 02/27/2019 Surgeon: Surgeon(s) and Role: * Darío Low MD - Primary Preoperative diagnosis: CARIES FRACTURED TEETH; SKIN TAG LEFT UPPER EYE LID 1 CM Postoperative diagnosis: CARIES FRACTURED TEETH Procedure(s) (LRB): SURGICAL EXTRACTIONS REQUIRING ELEVATION OF MUCOPERIOSTEAL FLAP AND REMOVAL OF BONE OR SECTION OF TOOTH (WRVU 1.09) (N/A) ALVEOPLASTY,IN CONJUNCTION WITH EXTRACTIONS,PER QUADRANT,ENT (WRVU 4.06) (N/A) EXCISION BENIGN LES, [id number] >4.0CM (WRVU 4.09) Anesthesia: General Estimated Blood [...] and draped in the standard fashion for post doctoral fellow. The oral cavity was suctioned and an [...] Hnd, Ft, Gnt, More Than 4.0 Cm ([id number]) 02/27/2019 7:30 AM EDT CARIES FRACTURED TEETH [...] AM EDT 02/27/2019 9:26 AM EDT Narrative [facility] - 02/27/2019 9:26 AM EDT Specimen requisition ordered. ??Separate Pathology report to follow Darío Low MD PATHOLOGY/CYTOLOGY O RDERAVICTOR MANUEL [facility] [place] [address] * Surgical Pathology Report (02/27/2019 9:23 AM EDT) Final Diagnosis [id number] ? Location: [facility]; [facility]; A The signing pathologist has (i) examined the relevant preparation(s) for the specimen(s) and (ii) rendered or confirmed the diagnosis(es). . ?Surgical Pathology DIAGNOSIS Skin, left upper eye lid skin tag, excision: - Fibroepithelial polyp Electronically signed by: ??Dunia العراقي, Juan A Mobley Verified: ??03/01/2019 ?Derm[address]ologi st, Bone & Soft Tissue Pathologist Performed at: ??-[facility] Dept. of Pathology, [place], [place] CLINICAL INFORMATION Specimen Submitted: A - [...] labeled A1. sns 03/01/2019 12:44 PM EDT [facility] SPECIMEN FROM SKIN / Unknown 02/27/2019 9:23 AM EDT 02/27/2019 9:23 AM EDT Darío Low MD PATHOLOGY/CYTOLOGY O ANGELIKA [facility] [place] [address] documented in this encounter Visit Diagnoses Not [...] Given 02/27/2019 11:01 AM EDT 12.5 mcg ibuprofen (ADVIL;MOTRIN) tablet 800 mg 800 mg, [...] Given 02/27/2019 7:03 AM EDT 3 mg naloxone (NARCAN) injection 0.04 mg 0.04 mg, [...] Given 02/27/2019 12:10 PM EDT 5 mg promethazine (PHENERGAN) injection 12.5 mg 12.5 mg, [...] Routine 1210 (Given - Provid er: Mira E Newman, RN) povidone-iodine 5 % ophthalmic solution (CANCELED) ONCE PRN, Starting on Mon02/27/19 at 0934, Until Mon02/27/19 at 1501, Intra-Operative (Intra-Procedure), Routine 0934 (Given - Provid er: aDrío Low MD - Comment: used for prep) [...] Routine documented in this encounter Care Teams Underwriting Service Representative Relationship Specialty Start Date End Date Josh Zarate MD PCP - General Family Medicine 12/20/18 03/05/23 documented as of this encounter
--- OUTSIDE RECORDS SUMMARY | 2024-05-06 18:34 | XMS_ITS | Encounter Summary ---
Author Organization [facility] Address [address] [place] [address] Care Team Providers Care Price Analyst Name Role Phone Spencer Joy MD Primary Care Provider [phone] Encounter Details Date Type Department Care Team (Late st Contact Info) Description 09/18/2017 Results Only [facility] [phone] Melisa Hand MD [address] [place] [address] [place] [address] Social History Tobacco Use Types Packs/Day Years [...] Priority Date/Time Associated Diagnosis Comments SURGICAL PATHOLOGY Routine 09/18/2017 8:45 EDT documented in this encounter Results * SURGICAL PATHOLOGY (09/18/2017 8:45 EDT) Pathology Report: SURGICAL PATHOLOGY REPORT Reports generated via electronic interface contain original data; however they are lacking the format of the original report. Caution should be taken when reading/interpret ing unformatted reports. Name: ? DARVIN MANJARREZ ? Accession #: ? [id number] ? : ? 1965 (Age: 52) ??F ? Collect Date: ? 09/18/2017 ? Location: ? [facility] ? Receive Date: ? 09/19/2017 ? Provider: MELISA HAND MD Copy to: SPENCER ROJAS MD ? Final Pathologic Diagnosis: COLON, TRANSVERSE POLYP, BIOPSIES: - Fragments of tubular adenoma. Document reviewed and electronically signed by: ANA IRVING MD Report ??Date: 09/20/2017 07:36 By the signature above, the attending physician certifies that he/she has personally conducted a gross and/or microscopic examination of the described specimens and rendered or confirmed the above diagnosis. Specimen(s) Received: Transverse colon polyp Clinical History: Screening for colon cancer Gross Description: ? Received in formalin labelled with proper patient identification (initials G, D) and transverse colon polyp are two joya tissues (0.3 x 0.2 x 0.2 cm and 0.3 x 0.2 x 0.1 cm). Entirely submitted in 1. Michael Sharma 09/19/2017 9:22 AM End of Report [facility] 09/18/2017 8:45 EDT 09/19/2017 8:45 EDT us Melisa Hand MD PATHOLOGY ORDERABLES Fin al Result [facility] [address] [place] [address] documented in this encounter Visit Diagnoses Not on filedocumented in this encounter Care Teams Price Analyst Relationship Specialty Start Date End Date Spencer Joy MD [address] [place] [phone] PCP - General 10/26/12 09/19/17 documented as of this encounter
[2024-05-06 19:19] LABS: HGB 13.7 g/dL (13.5-17.5); MCH 29.7 pg (27.0-33.0); MCHC 31.9 % (32.0-36.0); MCV 93 fL (80-95); MPV 10.3 fL (8.0-11.0); Platelet Count 247 10^3/uL (130-400); RBC 4.62 10^6/uL (4.36-5.78); RDW 13.5 % (11.8-14.1); RDW-SD 46.1 fL; WBC 10.22 10^3/uL (4.4-10.8)
[2024-05-06 19:43] LABS: Anion Gap 8.4 mmol/L (3-11); BUN 11 mg/dL (7-18); CO2 28.6 mmol/L (21.0-32.0); CREATININE 1.6 mg/dL (0.70-1.30); Calcium 9.6 mg/dL (8.5-10.1); Chloride 103 mmol/L (98-107); Estimated GFR 48.72 (mL/min/1.73m2); Glucose 79 mg/dL (74-106); Potassium 4.7 mmol/L (3.5-5.1); Sodium 140 mmol/L (136-145)
[2024-05-06 20:41] LABS: Hemoglobin A1C 5.8 % (<5.7)
== END 2024-05-06 18:27 | disposition home or self-care (01) ==
LOC: NCHCN 18:26
PROVIDERS: PCP Family Medicine; Visit Provider Student in an Organized Health Care Education/Training Program
DX: R73.03 Prediabetes (principal); F39 Unspecified mood [affective] disorder
CPT/HCPCS: 80048; 85027; 83036

== ENCOUNTER 2024-05-22 13:51 | Outpatient (REF) | payer MEDICARE, MEDICAID, SELFPAY ==
--- OUTSIDE RECORDS SUMMARY | 2024-05-22 13:53 | XMS_ITS | Clinical Summary ---
Author Organization [facility] Address [address] [place] [address] Care Team Providers Care Trimmer Operator Name Role Phone Josh Zarate MD Primary Care Provider [phone] Social History Tobacco Use Types Packs/Day Years [...] Comments Hepatitis C Screen 1965 COVID-19 Vaccine (2023-25 season) 2024 RSV Immunization ( o r 60+ Years) (1 - 1-dose 75+ series) 2038 Insurance [place] Care Teams Trimmer Operator Relationship Specialty Start Date End Date Josh Zarate [place] [address] PCP - General 09/20/17
--- OUTSIDE RECORDS SUMMARY | 2024-05-22 13:53 | XMS_ITS | Encounter Summary ---
Author Organization [facility] Address [address] [place] [address] Care Team Providers Care Recruitment And Outreach Assistant Name Role Phone Josh Joy MD Primary Care Provider [phone] Encounter Details Date Type Department Care Team (Latest Contact Info) Description 09/18/2017 10:26 EDT - 09/18/2017 23:59 EDT Hospital Encounter [facility] [address] [place] [address] Unknown, Provider, Discharge Disposition: Auto Discharge Social [...] on filedocumented in this encounter Care Teams Recruitment And Outreach Assistant Relationship Specialty Start Date End Date Josh Joy MD [address] [place] [address] PCP - General 10/26/12 09/19/17 documented as of this encounter
--- OUTSIDE RECORDS SUMMARY | 2024-05-22 13:53 | XMS_ITS | Referral Summary ---
Author Organization [facility] Address [address] [place] [address] Care Team Providers Care Magnetic Prospecting Supervisor Name Role Phone Josh Zarate MD Primary Care Provider [phone] Social History Tobacco Use Types Packs/Day Years [...] [place] Care Teams Magnetic Prospecting Supervisor Relationship Specialty Start Date [place] [address] PCP - General 09/20/17
--- OUTSIDE RECORDS SUMMARY | 2024-05-22 13:53 | XMS_ITS | Encounter Summary ---
Author Organization [facility] Address [address] [place] [address] Care Team Providers Care Medical Laboratory Scientist Name Role Phone Josh Zarate MD Primary Care Provider [phone] Encounter Details Date Type Department Care Team (Late st Contact Info) Description 03/07/2023 Lab Requisition [facility] Pathology & Laboratory Medicine - [facility] [address] [place] [address] Dilma Galicia, DO [address] [place], [place] [id number] Diverticulosis of large intestine without perforation or [...] explore management options, if applicable. 03/08/2023 17:27 [facility] Final Diagnosis A. JEJUNUM, PROXIMAL, [...] - Consistent with reflux esophagitis. 03/08/2023 17:27 [facility] Attestation By the signature below, the attending physician certifies that they have 1) personally conducted a gross and/or microscopic examination of the described specimen(s), and/or personally interpreted the results of laboratory testing of the described specimen(s), and 2) personally rendered or confirmed the above diagnosis. 03/08/2023 17:27 [facility] at [address]26 Clinical History Diverticulosis 03/08/2023 17:27 [facility] Gross Description A. Received in [...] Kymberly Cruz 03/08/2023 7:49 03/08/2023 17:27 [facility] Performing Lab [facility] 17:27 [facility] Scanned Images 03/08/2023 17:27 [facility] Tissue ESOPHAGEAL STRUCTURE / Unknown [...] Galicia DO PATHOLOGY ORDERABLES Final Re sult [facility] [address] [place] [address] documented in this encounter Visit Diagnoses Diagnosis [...] unspecified documented in this encounter Care Teams Medical Laboratory Scientist Relationship Specialty Start Date End Date Josh Zarate MD [place] [address] PCP - General 09/20/17 documented as of this encounter
--- OUTSIDE RECORDS SUMMARY | 2024-05-22 13:53 | XMS_ITS | Encounter Summary ---
Author Organization [facility] Address [address] [place] [address] Care Team Providers Care Health Coordinator Name Role Phone Spencer Joy MD Primary Care Provider Encounter Details Date Type Department Care Team (Late st Contact Info) Description 09/18/2017 Results Only [facility] [phone] Melisa Hand MD [address] [place] [address] [place] [address] Social History Tobacco Use Types Packs/Day Years [...] ? DARVIN MANJARREZ ? Accession #: ? [id number] ? : ? 1965 (Age: 52) ??F [...] Sharma 09/19/2017 9:22 AM End of Report [facility] 09/18/2017 8:45 EDT 09/19/2017 8:45 EDT us Melisa Hand MD PATHOLOGY ORDERABLES Fin al Result [facility] [address] [place] [address] documented in this encounter Visit Diagnoses Not on filedocumented in this encounter Care Teams Health Coordinator Relationship Specialty Start Date End Date Spencer Joy MD [address] [place] [phone] PCP - General 10/26/12 09/19/17 documented as of this encounter
--- OUTSIDE RECORDS SUMMARY | 2024-05-22 13:54 | XMS_ITS | Encounter Summary ---
Author Organization [facility] [place] [address] Care Team Providers Care Farm Laborer Name Role Phone Josh Zarate MD Primary Care Provider [phone] Reason for Referral * Consultation (Routine) - Closed Specialty Diagnoses / Procedures Referred By Teja beard Referred To Contact Otolaryngology Diagnoses Obstructive sleep apnea (adult) (pediatric) Josh Zarate MD [address] [place] [address] [place] [address] [facility] [address] [place] [phone] Referral ID Status Reason Start Date Expiration Date V isits Requested Visits Authorized [id number] Closed Consult, Test & Treat PCP Updated and/or Approved 05/02/2023 05/01/2024 6 6 Encounter Details Date Type Department Care Team (Late st Contact Info) Description 05/02/2023 Transcribe Orders eD Incoming Referrals [phone] Josh Zarate MD [address] [place] [address] [address] [place] [place], [place] [phone] Obstructive sleep apnea (adult) (pediatric) Social History [...] (pediatric) documented in this encounter Care Teams Farm Laborer Relationship Specialty Start Date End Date Josh Zarate MD PCP - General Family Medicine 03/06/23 documented as of this encounter
--- OUTSIDE RECORDS SUMMARY | 2024-05-22 13:54 | XMS_ITS | Encounter Summary ---
Author Organization [facility] [place] [address] Care Team Providers Care Crutcher Helper Name Role Phone Josh Zarate MD Primary Care Provider [phone] Encounter Details Date Type Department Care Team (Late st Contact Info) Description 02/27/2019 7:28 AM EDT Anesthesia [place] [address] Brian Cabral MD [facility] [place] [address] Daniel Rowe MD [facility] [place] [address] Anesthesia Record Procedure Summary Procedure Name Responsible [...] 0703; median cubital vein (antecubital fossa), right; uhiv-vic-qsciad catheter system; 20 gauge, 1 in length; [...] Procedure Summary Date: 02/27/19 Room / Location: [facility] MAIN OR Anesthesia Start: 727 Anesthesia Stop: 950 Procedures: SURGICAL EXTRACTIONS REQUIRING ELEVATION OF MUCOPERIOSTEAL FLAP AND REMOVAL OF BONE OR SECTION OF TOOTH (WRVU 1.09) (N/A ) ALVEOPLASTY,IN CONJUNCTION WITH EXTRACTIONS,PER QUADRANT,ENT (WRVU 4.06) (N/A ) EXCISION BENIGN LES, [id number] >4.0CM (WRVU 4.09) (Eye) Diagnosis: (CARIES FRACTURED TEETH) Surgeon: Darío Low MD Responsible Provider: Brian Cabral MD Anesthesia Type: general ASA Status: 2 All Anesthesia Providers: Anesthesiologist: Brian Cabral MD Business Communications Instructor: Daniel Rowe MD Vitals Value Taken Time BP 150/106 02/27/2019 10:30 AM Temp Pulse 87 02/27/2019 10:20 AM Resp 14 02/27/2019 10:20 AM SpO2 94 % 02/27/2019 10:31 AM Pain Level 0 02/27/2019 10:20 AM Vitals shown include unvalidated device data. Patient Location: PACU/[facility] Level of Consciousness: Conscious but Sleepy Pain [...] 12:55 PM EDT Pre-Anesthesia Evaluation for: Tejas Manjarrez a 53 y.o. male. Procedure(s): SURGICAL EXTRACTIONS [...] mg documented in this encounter Care Teams Crutcher Helper Relationship Specialty Start Date End Date Josh Zarate MD PCP - General Family Medicine 12/20/18 03/05/23 documented as of this encounter
--- OUTSIDE RECORDS SUMMARY | 2024-05-22 13:54 | XMS_ITS | Encounter Summary ---
Author Organization [facility] [place] [address] Care Team Providers Care Project Manager/Design Manager Name Role Phone Josh Zarate MD Primary Care Provider [phone] Reason for Visit * Reason Comments Establish Care Full mouth clearanc e * Consultation (Routine) - Specialty Diagnoses / Procedures Referred By Contact Referred To Contact Maxillofacial Surgery Diagnoses Needs full mouth clearance. Very nervous with needle, needs GA. Mentally handicapped from Head Trauma Tyrell Chandra, DMD [address] [place] [address] Darío Low MD [facility] [place] [address] Referral ID Status Reason Start Date Expiration Date V isits Requested Visits Authorized [id number] Consult, Test & Treat PCP Updated and/or Approved 09/21/2018 03/23/2019 6 6 Encounter Details Date Type Department Care Team (Late st Contact Info) Description 12/20/2018 9:00 AM EDT Office Visit [place] [address] Darío Low MD [facility] [address] [place] [address] Dental caries Social History Tobacco Use Types [...] sensitivity ?? Pt presents with Sailaja- patient sales representative advertising ?? Patient has mild intellectual disability from [...] carefully reviewed with the patient and patients sales representative advertising including but not limited to bleeding, infection, [...] benefits and attendant risks. Tejas and his career technical supervisor were given an opportunity to ask questions [...] caries documented in this encounter Care Teams Project Manager/Design Manager Relationship Specialty Start Date End Date Josh Zarate MD PCP - General Family Medicine 12/20/18 03/05/23 documented as of this encounter
--- OUTSIDE RECORDS SUMMARY | 2024-05-22 13:54 | XMS_ITS | Encounter Summary ---
Author Organization [facility] Address [address] [place] [address] Care Team Providers Care Human Intelligence Name Role Phone Unknown, Provider Primary Care Provider Unava ilable Encounter Details Date Type Department Care Team (Late st Contact Info) Description 10/23/2012 Results Only [facility] - [facility] ([facility] [address] [place], [place] [address] MD [address] [place] [phone] Social History Tobacco Use Types Packs/Day Years [...] ? DARVIN MANJARREZ ? Accession #: ? [id number] : ? 1965 (Age: 47) ??F ?Collect [...] Final Resul t [facility] [address] [place] [address] documented in this encounter Visit Diagnoses Not on filedocumented in this encounter Care Teams Human Intelligence Relationship Specialty Start Date End Date Unknown, Provider, PCP - General 10/25/12 10/25/12 documented as of this encounter
--- OUTSIDE RECORDS SUMMARY | 2024-05-22 13:54 | XMS_ITS | Encounter Summary ---
Author Organization [place] [address] Care Team Providers Care Hydraulic Elevator Constructor Name Role Phone Josh Zarate MD Primary Care Provider [phone] Reason for Referral * Consultation (Routine) - Closed Specialty Diagnoses / Procedures Referred By Teja beard Referred To Contact Sleep Center Diagnoses Sleep apnea, unspecified type Josh Zarate MD [address] [place] [address] [place] [address] [facility] Sleep Medicine [address] [place] [address] Referral ID Status Reason Start Date Expiration Date V isits Requested Visits Authorized [id number] Closed Consult, Test & Treat PCP Updated and/or Approved 04/11/2023 04/11/2024 6 6 Encounter Details Date Type Department Care Team (Late st Contact Info) Description 03/06/2023 Transcribe Orders eDH Incoming Referrals [phone] Josh Zarate MD [address] [place] [address] [address] [place], [place] [phone] Sleep apnea, unspecified type Social History Tobacco [...] type documented in this encounter Care Teams Hydraulic Elevator Constructor Relationship Specialty Start Date End Date Josh Zarate MD PCP - General Family Medicine 03/06/23 documented as of this encounter
--- OUTSIDE RECORDS SUMMARY | 2024-05-22 13:54 | XMS_ITS | Clinical Summary ---
Author Organization [facility] Address [address] [facility] [place] [address] Care Team Providers Care Executive Recruiter Name Role Phone Josh Zarate MD Primary Care Provider [phone] Allergies No known active allergies Medications Medication [...] Documents on File Type Date Recorded Patient Imaging Administrator Expl anation Personal Imaging Administrator 09/21/2018 1:44 PM [facility] * Full Code (Latest Code Status on File) Date Activated Date Inactivated Comments 02/27/2019 7:12 AM 02/27/2019 3:06 PM Question Answer Comments Does patient have capacity to make decision: Yes Care Teams Executive Recruiter Relationship Specialty Start Date End Date Josh Zarate MD PCP - General Family Medicine 03/06/23
--- OUTSIDE RECORDS SUMMARY | 2024-05-22 13:54 | XMS_ITS | Encounter Summary ---
Author Organization [facility] [place] [address] Care Team Providers Care Supervising Bailiff Name Role Phone Josh Zarate MD Primary Care Provider [phone] Encounter Details Date Type Department Care Team (Late st Contact Info) Description 02/27/2019 6:29 AM EDT - 02/27/2019 12:51 PM EDT Hospital Encounter [place] [phone] Darío Low MD [facility] DR ORAL [place] [address] Discharge Disposition: Home Social History Tobacco Use [...] may be helpful. Most swelling will occur dyuuay51-54 hours following the procedure. Mouth Rinse: Vigorous [...] can be reached during office hours at [phone]. documented in this encounter Medications at Time [...] file Gets together: Not on file Attends oriental orthodox service: Not on file Active member of [...] QUADRANT,ENT (WRVU 4.06) No flowsheet data found. [place] PDMP QUERY DATE: 02/27/19 Risk Assessment Category: [...] No future appointments. Darío Low DMD, MD school based therapist documented in this encounter Miscellaneous Notes * Op Note - Darío Low MD - 02/27/2019 9:37 AM EDT [facility] Operative Note Patient Name: Tejas Manjarrez : [id number] MR#: [id number] Case Date: 02/27/2019 Surgeon: Surgeon(s) and Role: * Darío Low MD - Primary Preoperative diagnosis: CARIES FRACTURED TEETH; SKIN TAG LEFT UPPER EYE LID 1 CM Postoperative diagnosis: CARIES FRACTURED TEETH Procedure(s) (LRB): SURGICAL EXTRACTIONS REQUIRING ELEVATION OF MUCOPERIOSTEAL FLAP AND REMOVAL OF BONE OR SECTION OF TOOTH (WRVU 1.09) (N/A) ALVEOPLASTY,IN CONJUNCTION WITH EXTRACTIONS,PER QUADRANT,ENT (WRVU 4.06) (N/A) EXCISION BENIGN LES, [id number] >4.0CM (WRVU 4.09) Anesthesia: General Estimated Blood [...] TAG LEFT UPPER EYE LID Procedure Description: eTjas Manjarrez was brought to the operating room and placed under general anesthesia via nasoendotracheal tube. Appropriate monitors were placed and the patient's position waschecked and all prominent bony locations padded. The patient was then prepped and draped in the standard fashion for behavioral health care coordinator. The oral cavity was suctioned and an [...] Hnd, Ft, Gnt, More Than 4.0 Cm ([id number]) 02/27/2019 7:30 AM EDT CARIES FRACTURED TEETH [...] AM EDT 02/27/2019 9:26 AM EDT Narrative [facility] - 02/27/2019 9:26 AM EDT Specimen requisition ordered. ??Separate Pathology report to follow Darío Low MD PATHOLOGY/CYTOLOGY O RDERAVICTOR MANUEL [facility] [place] [address] * Surgical Pathology Report (02/27/2019 9:23 AM EDT) Final Diagnosis [id number] ? Location: [facility]; [facility]; A The signing pathologist has (i) examined the relevant preparation(s) for the specimen(s) and (ii) rendered or confirmed the diagnosis(es). . ?Surgical Pathology DIAGNOSIS Skin, left upper eye lid skin tag, excision: - Fibroepithelial polyp Electronically signed by: ??Dunia العراقي, Juan A Mobley Verified: ??03/01/2019 ?Derm[address]i st, Bone & Soft Tissue Pathologist Performed at: ??-[facility] Dept. of Pathology, [place], [place] CLINICAL INFORMATION Specimen Submitted: A - [...] labeled A1. sns 03/01/2019 12:44 PM EDT [facility] SPECIMEN FROM SKIN / Unknown 02/27/2019 9:23 AM EDT 02/27/2019 9:23 AM EDT Darío Low MD PATHOLOGY/CYTOLOGY O ANGELIKA [facility] [place] [address] documented in this encounter Visit Diagnoses Not [...] Rowe)0854 (Anesthesia Volume Adjustment - Provider: Daniel Rwoe)0936 (Anesthesia Volume Adjustment - Provider: Daniel Rowe) [...] (Intra-Procedure) 0811 (Given - Provid er: Darío Lwo MD - Comment: small amt applied on [...] Routine documented in this encounter Care Teams Supervising Bailiff Relationship Specialty Start Date End Date Josh Zarate MD PCP - General Family Medicine 12/20/18 03/05/23 documented as of this encounter
--- OUTSIDE RECORDS SUMMARY | 2024-05-22 13:54 | XMS_ITS | Encounter Summary ---
Author Organization [facility] Address [facility] [place] [address] Care Team Providers Care Life Coach Name Role Phone Josh Zarate MD Primary Care Provider Encounter Details Date Type Department Care Team (Late st Contact Info) Description 02/27/2019 7:30 AM EDT - 02/27/2019 9:58 AM EDT Surgery Main Operating Room [facility] [place] [id number] Darío Low MD [facility] DR ORAL [place] [address] SURGICAL EXTRACTIONS REQUIRING ELEVATION OF MUCOPERIOSTEAL FLAP [...] may be helpful. Most swelling will occur [id number] hours following the procedure. Mouth Rinse: Vigorous [...] can be reached during office hours at [phone]. documented in this encounter Medications at Time [...] file Gets together: Not on file Attends worship service: Not on file Active member of [...] QUADRANT,ENT (WRVU 4.06) No flowsheet data found. [place] PDMP QUERY DATE: 02/27/19 Risk Assessment Category: [...] No future appointments. Darío Low DMD, MD photovoltaic subcontractor documented in this encounter Miscellaneous Notes * Op Note - Darío Low MD - 02/27/2019 9:37 AM EDT [facility] [place] Note Patient Name: Tejas Manjarrez : [id number] MR#: [id number] Case Date: 02/27/2019 Surgeon: Surgeon(s) and Role: * Darío Low MD - Primary Preoperative diagnosis: CARIES FRACTURED TEETH; SKIN TAG LEFT UPPER EYE LID 1 CM Postoperative diagnosis: CARIES FRACTURED TEETH Procedure(s) (LRB): SURGICAL EXTRACTIONS REQUIRING ELEVATION OF MUCOPERIOSTEAL FLAP AND REMOVAL OF BONE OR SECTION OF TOOTH (WRVU 1.09) (N/A) ALVEOPLASTY,IN CONJUNCTION WITH EXTRACTIONS,PER QUADRANT,ENT (WRVU 4.06) (N/A) EXCISION BENIGN LES, [id number] >4.0CM (WRVU 4.09) Anesthesia: General Estimated Blood [...] and draped in the standard fashion for floral merchandiser. The oral cavity was suctioned and an [...] Hnd, Ft, Gnt, More Than 4.0 Cm ([id number]) 02/27/2019 7:30 AM EDT CARIES FRACTURED TEETH [...] AM EDT 02/27/2019 9:26 AM EDT Narrative [facility] - 02/27/2019 9:26 AM EDT Specimen requisition ordered. ??Separate Pathology report to follow Darío Low MD PATHOLOGY/CYTOLOGY O RDERABLES Performing Organization Address City/State/[facility] Co de Phone Number [facility] [place] [address] * Surgical Pathology Report (02/27/2019 9:23 AM EDT) Final Diagnosis [id number] ? Location: [facility]; [facility]; A The signing pathologist has (i) examined the relevant preparation(s) for the specimen(s) and (ii) rendered or confirmed the diagnosis(es). . ?Surgical Pathology DIAGNOSIS Skin, left upper eye lid skin tag, excision: - Fibroepithelial polyp Electronically signed by: ??Juan A Duque MD Verified: ??03/01/[address] ?[address], Bone & Soft Tissue Pathologist Performed at: ??-[facility] [place] Dept. of Pathology, [place], [place] CLINICAL INFORMATION Specimen Submitted: A - [...] labeled A1. sns 03/01/2019 12:44 PM EDT [facility] SPECIMEN FROM SKIN / Unknown 02/27/2019 9:23 AM EDT 02/27/2019 9:23 AM EDT Darío Low MD PATHOLOGY/CYTOLOGY O ANGELIKA [facility] [place] [address] documented in this encounter Visit Diagnoses Not [...] Routine documented in this encounter Care Teams Life Coach Relationship Specialty Start Date End Date Josh Zarate MD PCP - General Family Medicine 12/20/18 03/05/23 documented as of this encounter
[2024-05-22 15:04] LABS: Anion Gap 8.4 mmol/L (3-11); BUN 17 mg/dL (7-18); CO2 28.6 mmol/L (21.0-32.0); CREATININE 1.4 mg/dL (0.70-1.30); Chloride 106 mmol/L (98-107); Estimated GFR 57.18 (mL/min/1.73m2); Glucose 101 mg/dL (74-106); Potassium 4.8 mmol/L (3.5-5.1); Sodium 143 mmol/L (136-145)
== END 2024-05-22 13:52 | disposition home or self-care (01) ==
LOC: NCHCN 13:51
PROVIDERS: PCP Family Medicine; Visit Provider Student in an Organized Health Care Education/Training Program
DX: Z01.818 Encounter for other preprocedural examination (principal)
CPT/HCPCS: 80048

== ENCOUNTER 2024-06-07 09:45 | Day surgery (SDC) | payer MEDICARE, MEDICAID, SELFPAY ==
[2024-06-07 10:45] VITALS: BP 119/84; PULSE 74; RESP 18; TEMP 36.6; O2SAT 97
[2024-06-07] MEDS: Tropicam./Phenyleph. (1/2.5%) 5 ML BTL OD ×3 (11:05→11:20)
--- NOTE | 2024-06-07 11:12 | W.ANESPRE ---
General Info Date of Service Date Performed: 06/07/24 Height: 5 ft 8 in Weight: 96.2 kg Body Mass Index (BMI): 32.2 Surgical Procedure: Operation Date: 06/07/24 12:40 Proposed Procedure Side Surgeon p Cataract Extraction with IOL Implant Right Helder Dawkins MD Meds Allergies and Home Medications Allergies Allergy/AdvReac Type Severity Reaction Status Date / Time No Known Allergies Allergy Verified 06/06/24 12:25 Home Medication ?Medication ?Instructions ?Recorded simvastatin 40 mg tablet 40 mg PO DAILY 03/26/14 tiotropium bromide 18 mcg capsule 18 mcg inhalation DIRECTED 03/26/14 with inhalation device (Spiriva with HandiHaler) finasteride 5 mg tablet 5 mg PO DAILY 03/14/17 psyllium husk (aspartame) 3.4 gram 3.4 g PO DAILY 09/05/17 oral powder packet (Metamucil Fiber Singles) venlafaxine 100 mg tablet 100 mg PO TID 09/14/17 salmeterol 50 mcg/dose blister 1 inh inhalation BID 06/17/20 powder for inhalation (Serevent Diskus) albuterol sulfate 90 mcg/actuation 2 puff inhalation QID 01/30/23 aerosol inhaler (Ventolin HFA) bupropion HCl 100 mg tablet 100 mg PO BID 01/30/23 calcium carbonate (Tums) 200 mg PO TID 01/30/23 ketoconazole 2 % topical cream 1 applic topical BID 01/30/23 loratadine 10 mg tablet (Allergy 10 mg PO DAILY 01/30/23 Relief (loratadine)) polyethylene glycol 3350 17 17 g PO DAILY 01/30/23 gram/dose oral powder gabapentin 600 mg tablet 600 mg PO DIRECTED 03/07/23 pantoprazole 40 mg tablet,delayed 40 mg PO DAILY #30 tabs 03/07/23 release (Protonix) quetiapine 100 mg tablet 100 mg PO BID 06/04/24 venlafaxine 25 mg tablet 25 mg PO DIRECTED 06/04/24 Current Visit Medications: Current Medications Generic Name Dose Route Start Last Admin Trade Name Freq PRN Reason Stop Dose Admin Acetaminophen 1,000 mg 06/07/24 06:00 Acetaminophen 500 Mg Tab PO 07/07/24 05:59 Q4H PRN PRN Balanced Salt Solution 500 ml 06/07/24 06:00 Balanced Salt Soln.-Plus 500 Ml Bag OP 07/07/24 05:59 DIRECTED [facility] IV Miscellaneous Supplies 1 each 06/07/24 10:15 Iv Access IV 07/07/24 10:14 DIRECTED [facility] Miscellaneous Medication 0 ml 06/07/24 06:00 Prednisolone 1%, Moxifloxacin 0.5%, Bromfenac 0.09% 5.6ml Btl OD 07/07/24 05:59 DIRECTED [facility] Miscellaneous Medication 0 ml 06/07/24 06:00 Tropicam./Phenyleph. (1/2.5%) 5 Ml Btl OD 07/07/24 05:59 DIRECTED [facility] Sodium Chloride 0 ml 06/07/24 07:27 Normal Saline Flush 10 Ml Syr IVP 07/07/24 07:26 PRN PRN Sodium Chloride 0 ml 06/07/24 08:30 Normal Saline Flush 10 Ml Syr IVP 07/07/24 08:29 BID SUMA Sodium Chloride 0 ml 06/07/24 07:27 Normal Saline 10 Ml Vial IJ 07/07/24 07:26 DIRECTED PRN Tetracaine HCl 0 ml 06/07/24 06:00 Tetracaine 0.5% 4 Ml Btl OD 07/07/24 05:59 DIRECTED [facility] PFSH Active Problems Active Problems: Problem Status Onset Code Posterior subcapsular age-related cataract, right eye Acute H25.041 Nuclear age-related cataract, left eye Chronic H25.12 Nuclear age-related cataract, right eye Acute H25.11 Diverticula of colon Acute K57.30 Hiatal hernia with GERD Acute K21.9, K44.9 Hypertension Chronic I10 Conductive hearing loss, external ear Acute H90.2 Sensorineural hearing loss of both ears Acute H90.3 Acute otitis externa of right ear Acute H60.501 Bilateral impacted cerumen Acute H61.23 Dysphagia Acute R13.10 Adenomatous polyps Acute D36.9 Hematemesis Acute K92.0 Medical History Medical History Lower urinary tract symptoms Constipation Tinea corporis Mood disorder Dyspnea on exertion Hematemesis Obesity COPD (chronic obstructive pulmonary disease) Tremor OCD (obsessive compulsive disorder) Developmental disability laymans terms best way to explain things to pt. CHRISTIANO (obstructive sleep apnea) Surgical History Surgical History History of esophagogastroduodenoscopy (~02/2023) Vasectomy Colonoscopy - MAC (02/2023) Tobacco Smoking/Tobacco Use Status: Current every day Tobacco Type: smokeless tobacco Smokeless tobacco user: chewing tobacco Alcohol Alcohol Intake: never Substance Use Substance use: Never Substance use type: does not use Vital Signs and Lab Results Vital Signs Most Recent Vital Signs in EMR: Most Recent Vital Signs Temp Pulse Resp BP Pulse Ox 36.6 C 74 18 119/84 97 06/07/24 10:45 06/07/24 10:45 06/07/24 10:45 06/07/24 10:45 06/07/24 10:45 Lab Results Blood Type / Crossmatch: No Data to Display Complete Blood Count: No Data to Display Complete Metabolic Panel: Sodium 143 mmol/L (136-145) 05/22/24 10:00 Potassium 4.8 mmol/L (3.5-5.1) 05/22/24 10:00 Chloride 106 mmol/L (98-107) 05/22/24 10:00 Carbon Dioxide 28.6 mmol/L (21.0-32.0) 05/22/24 10:00 BUN 17 mg/dL (7-18) 05/22/24 10:00 Creatinine 1.4 mg/dL (0.70-1.30) H 05/22/24 10:00 Est GFR (CKD-EPI 2020) 57.18 (mL/min/1.73m2) 05/22/24 10:00 Calcium 9.0 mg/dL (8.5-10.1) 05/22/24 10:00 Glucose 101 mg/dL (74-106) 05/22/24 10:00 Liver Function Panel: No Data to Display Coagulation Panel: No Data to Display Cardiac Panel: No Data to Display Arterial Blood Gas: No Data to Display Venous Blood Gas: No Data to Display Pancreas Panel: No Data to Display Thyroid Panel: No Data to Display Infectious Disease: No Data to Display Blood Cultures: No Data to Display Toxicology Panel: No Data to Display Imaging and Studies Imaging and Studies Study information below may be from another EMR and interpreted by another provider. Please see original notes in EMR for more complete details. EKG Summary: 08/16: sinus, LAD. Stress Test Summary: 02/15: pharm, 12.5 METS, no ECG evidence of ischemia. EF 62%, normal perfusion. no evidence of ischemia/infarction. Echocardiogram Summary: 04/15: LVEF 65-70%, normal RV, no sig valve dz. Pulmonary Function Summary: 2012: mild obstructive airway dz with sig bronchodilator response. Anesthesia Assessment and Plan Anesthesia History Personal History: No History of Anesthesia Complications Family History: Family History Unknown Exercise Tolerance Exercise Tolerance: Metabolic Equivalents<4 Pertinent Negatives Pertinent Negatives: No Major Cardiovascular Symptoms or Complaints and No Major Pulmonary Symptoms or Complaints Cardiac & Pulmonary Exam Cardiac Exam: Normal S1/S2 Heart Sounds Pulmonary Exam: Clear Bilateral Breath Sounds Implantable Cardiac Device Does patient have a Pacemaker or an ICD?: No Airway Exam Known Difficult Airway: No Mallampati Class: 3 Mouth Opening: Narrow (< 3cm) Thyromental Distance: Less than 3 cm Neck Range of Motion: Full ROM Neck Circumference: Thick Teeth Condition: Edentulous ASA Classification ASA Score: ASA 3 Emergency Case?: No NPO Status NPO Status: NPO Clears >2 hours, Solids >8 hours Anesthesia Plan Resuscitation Status: Full Code Anesthesia Technique: MAC Anesthesia Airway Planned: Natural Airway Monitors Used: Standard Monitors Preoperative Comments:: Consent obtained yesterday from guardian/brother, will receive IV Versed with possible general back up with LMA/ETT due to anxiety/cognitive delay
[2024-06-07] MEDS: Normal Saline Flush 10 ML SYR IVP (11:24)
[2024-06-07 11:35] VITALS: BMI 32.2
[2024-06-07] MEDS: Lactated Ringers 500 ML 30 ML IV (12:00)
[2024-06-07] MEDS: Duovisc Viscoelastic System EACH 1 EACH (12:17)
[2024-06-07] MEDS: Lidocaine 1% Pres-Free 5 ML VIAL (12:18)
[2024-06-07] MEDS: Phenylephrine/Lidocaine (15/10) MG/ML 1 ML VIAL (12:19)
[2024-06-07] MEDS: Balanced Salt Soln.-PLUS 500 ML BAG OP (12:20)
[2024-06-07] MEDS: Povidone-Iodine Ophth 30 ML BTL (12:20)
[2024-06-07] MEDS: Prednisolone 1%, Moxifloxacin 0.5%, Bromfenac 0.09% 5.6ML BTL OD (12:21)
[2024-06-07] MEDS: Tetracaine 0.5% 4 ML BTL OD (12:22)
[2024-06-07 12:37] VITALS: BP 95/75; PULSE 87; RESP 18; TEMP 36.6; O2SAT 97
--- NOTE | 2024-06-07 12:37 | W.PM.DSUDISC ---
Date of service: 06/07/24 Discharge Plan Disposition Patient Disposition: Home Discharge Details Attending Provider: Helder Dawkins Primary Care Provider: Bhavin Vo Home Meds and New Rx's Prescriptions: No Action simvastatin 40 MG tablet 40 mg PO DAILY Patient Comments: caregiver unsure if pt. takes tiotropium bromide [Spiriva with HandiHaler] 18 MCG capsule, w/inhalation device 18 mcg Inhalation DIRECTED Patient Comments: 2 puffs qam finasteride 5 MG tablet 5 mg PO DAILY Metamucil Fiber Singles 3.4 GM powder in packet 3.4 g PO DAILY Serevent Diskus 50 mcg/dose blister with device 1 inh inhalation BID bupropion HCl 100 mg tablet 100 mg PO BID polyethylene glycol 3350 17 gram/dose powder 17 g PO DAILY Rx Instructions: mix with 8 oz of liquid then taken by mouth daily for constipation prn no stool in 2 days calcium carbonate [Tums] 200 mg calcium (500 mg) tablet,chewable 200 mg PO TID ketoconazole 2 % cream 1 applic topical BID loratadine [Allergy Relief (loratadine)] 10 mg tablet 10 mg PO DAILY albuterol sulfate [Ventolin HFA] 90 mcg/actuation HFA aerosol inhaler 2 puff inhalation QID venlafaxine 100 MG tablet 100 mg PO TID Patient Comments: 09/14/17: Dose in addition to 125mg PO TID dose, per care provider. -BR gabapentin 600 mg tablet 600 mg PO DIRECTED pantoprazole [Protonix] 40 mg tablet,delayed release (DR/EC) 40 mg PO DAILY Qty: 30 12RF quetiapine 100 mg tablet 100 mg PO BID venlafaxine 25 mg tablet 25 mg PO DIRECTED Discharge Instructions Stand Alone Forms: DSU Post-Op CataractJoel (DSU) Discharge Orders Discharge Orders: Discharge Order (Routine); Ordered 06/07/24 Ordered By: Helder Dawkins DS: Diagnosis Discharge Diagnosis (1) Posterior subcapsular age-related cataract, right eye: Status: Suspected (2) Nuclear age-related cataract, right eye: Status: Resolved
--- NOTE | 2024-06-07 12:37 | W.PM.OP ---
Operative Note Operative Note PRE-OP DIAGNOSIS: Nuclear/posterior subcapsular cataract, right eye POST-OP DIAGNOSIS: same PROCEDURE: Cataract extraction using phacoemulsification with intraocular lens implant, right eye SURGEON: Helder Dawkins ANESTHESIA TYPE: Local By Surgeon and MAC Refer to Anesthesia Record ESTIMATED BLOOD LOSS: 0 PATHOLOGY: none sent COMPLICATIONS: None Patient was transported to: same day Patient's condition: stable Implants: Margarito & Margarito Tecnis Eyhance [id number] Indications: Progressive visual loss due to cataract, right eye Procedure Description: CATARACT SURGERY OPERATIVE REPORT PREOPERATIVE DIAGNOSIS: 1. Nuclear/posterior subcapsular cataract, right eye POSTOPERATIVE DIAGNOSIS: Same OPERATION: 1. Cataract extraction using phacoemulsification with posterior chamber intraocular lens implant, right eye. IOL: IOL Data Management Manager/Model: Margarito & Margarito Tecnis Eyhance DIB00 IOL Power: + 18.0 diopters IOL Serial Number: [id number] Optic Diameter: 6.0mm Haptic/Overall Diameter: 13.0mm PHACO INFO: Krunal Package Conciergeurion Vision System with OZil and Active Fluidics Cumulative Dispersed Energy (CDE): 3.38 seconds SURGEON: Helder Dawkins MD, LESLIE ANESTHESIA: Monitored Anesthesia Care (MAC), with local sub-tenon's anesthetic infiltration COMPLICATIONS: None SPECIMENS: None INDICATIONS FOR PROCEDURE: The patient is a 59-year-old male with history of diminished visual acuity in his right eye secondary to the development of nuclear/posterior subcapsular cataract. He is significantly symptomatic that he desires cataract surgery and attempt to improve and maximize his vision. See office notes for detailed information. PROCEDURE: The correct surgical eye was identified and marked as the right eye and the pupil was dilated in the preoperative area using mydriatics and cycloplegics. The dilated pupil size was 6.0 mm. IV access was obtained, and the patient received Versed 2 mg and Precedex 8 mg IV. The patient was brought to the operating room where cardiopulmonary monitoring was instituted and surgical time-out was performed, confirming the correct operative eye and IOL power. Topical anesthesia was administered and ophthalmic povidone-iodine 5% was instilled into the conjunctival fornices. The garrett-ocular area was prepped with Betadine 10% solution and draped in the usual sterile fashion for intraocular surgery, including an aperture drape. A Tegaderm transparent film dressing was cut in half and used to cover the lashes and lid margins. Care was taken to sequester the lashes and lid margins under the Tegaderm dressing. A lid speculum was placed between the lids of the operative eye and the Krunal LuxOR Revalia operating microscope was maneuvered into position. Dashawn scissors were then used to make a conjunctival buttonhole approximately 6mm posterior to the limbus in the inferonasal quadrant. Blunt dissection was carried out to expose bare sclera, and a blunt-tipped sub-tenon?s anesthesia cannula was introduced and passed posteriorly along the globe where non-preserved plain lidocaine was injected into posterior sub-Tenon?s space. A sideport knife was used to make a paracentesis port. Intraocular phenylephrine/lidocaine was injected into the anterior chamber. The anterior chamber was filled with viscoelastic. A keratome knife was used to construct a 2-plane clear corneal tunnel extending 2.0mm into clear cornea. A flap was raised on the anterior capsule and capsulorhexis forceps were used to complete a continuous curvilinear capsulorhexis of 5.0 mm. Balanced salt solution was then used to perform cortical cleaving hydrodissection and nuclear hydrodelineation until the lens could be freely rotated within the capsular bag. The lens nucleus was then disassembled and removed within the capsular bag and iris plane using phacoemulsification. Residual cortical material was removed using the I/A handpiece. The posterior capsule was carefully polished to remove as much residual lens epithelial cells as safely possible. The capsular bag was then inflated and the anterior chamber deepened with cohesive viscoelastic. The lens implant described above was inserted into the capsular bag using the Margarito and Ortiz Simplicity pre-loaded injector. A Kuglen hook was used to dial the IOL into position. Residual viscoelastic was then removed first from posterior to the IOL, then from the anterior chamber using the I/A handpiece. The lens implant was noted to center nicely within the capsular bag. The incisions were stromally hydrated, and the anterior chamber was reformed using BSS. Then 0.5cc of moxifloxacin 1.0mg/ml were injected into the capsular bag and anterior chamber. The incisions were checked with a Weck spear and found to be secure. Several drops of ophthalmic povidone-iodine 5% were then applied to the eye followed by two drops ocombination steroid/NSAID/antibiotic solution. The drapes were removed and a clear plastic protective eye shield was placed over the eye. The patient was then returned to Same Day Surgery in stable condition. Date of Procedure: 06/07/24
--- NOTE | 2024-06-07 12:51 | W.ANESPOSTOP ---
Postoperative Evaluation Date, Time and Location Date Performed: 06/07/24 Time Performed: 12:38 Patient Location: Day Surgery Unit Vital Signs Most Recent Imported Vital Signs: Most Recent Vital Signs Temp Pulse Resp BP Pulse Ox 36.6 C 87 18 95/75 L 97 06/07/24 12:37 06/07/24 12:37 06/07/24 12:37 06/07/24 12:37 06/07/24 12:37 Pain Score Most Recent Pain Score: Most Recent Pain Score Pain Level 0 06/07/24 12:37 Assessment Mental Status: Awake (Alert & Oriented to Patient Baseline) Airway and Respiratory Function: Patent airway with normal (patient baseline) respiratory exam Cardiovascular Function: Hemodynamically Stable Hydration Status: Adequately Hydrated Nausea & Vomiting: No Nausea or Vomiting Pain: Pt. Denies Any Pain Peripheral Nerve Block: Patient did not receive a nerve block
[2024-06-07 13:05] VITALS: BP 102/92; PULSE 72; RESP 18; TEMP 36.7; O2SAT 96
== END 2024-06-07 13:15 | disposition home or self-care (01) ==
LOC: SUR 09:46
PROVIDERS: PCP Student in an Organized Health Care Education/Training Program; Visit Provider Ophthalmology
PROC: (CPT 66984; principal; 2024-06-07 12:30)
DX: H25.041 Posterior subcapsular polar age-related cataract, right eye (principal); H25.11 Age-related nuclear cataract, right eye
CPT/HCPCS: 66984; 00123; V2632; J2003; J2250

== ENCOUNTER 2024-06-14 06:07 | Day surgery (SDC) | payer MEDICARE, MEDICAID, SELFPAY ==
--- OUTSIDE RECORDS SUMMARY | 2024-06-14 06:08 | XMS_ITS | Encounter Summary ---
Author Organization [facility] [place] [address] Care Team Providers Care Manager Financial Reporting Name Role Phone Josh Zarate MD Primary Care Provider [phone] Reason for Referral * Consultation (Routine) - Closed Specialty Diagnoses / Procedures Referred By Teja beard Referred To Contact Sleep Center Diagnoses Sleep apnea, unspecified type Josh Zarate MD [address] [place] [address] [place] [address] [facility] [address] [place] [address] Referral ID Status Reason Start Date Expiration Date V isits Requested Visits Authorized [id number] Closed Consult, Test & Treat PCP Updated and/or Approved 04/11/2023 04/11/2024 6 6 Encounter Details Date Type Department Care Team (Late st Contact Info) Description 03/06/2023 Transcribe Orders eDH Incoming Referrals [phone] Josh Zarate MD [address] [place] [address] [address] [place], [place] [id number] Sleep apnea, unspecified type Social History Tobacco [...] type documented in this encounter Care Teams Manager Financial Reporting Relationship Specialty Start Date End Date Josh Zarate MD PCP - General Family Medicine 03/06/23 documented as of this encounter
--- OUTSIDE RECORDS SUMMARY | 2024-06-14 06:08 | XMS_ITS | Encounter Summary ---
Author Organization [facility] Address [facility] [place] [address] Care Team Providers Care Superintendent Circus Name Role Phone Josh Zarate MD Primary Care Provider [phone] Encounter Details Date Type Department Care Team (Late st Contact Info) Description 02/27/2019 7:30 AM EDT - 02/27/2019 9:58 AM EDT Surgery Main Operating [place] [id number] Darío Low MD [facility] DR ORAL AND [place] [address] SURGICAL EXTRACTIONS REQUIRING ELEVATION OF MUCOPERIOSTEAL FLAP [...] may be helpful. Most swelling will occur [id number] hours following the procedure. Mouth Rinse: Vigorous [...] can be reached during office hours at [phone]. documented in this encounter Medications at Time [...] file Gets together: Not on file Attends zoroastrianism service: Not on file Active member of [...] QUADRANT,ENT (WRVU 4.06) No flowsheet data found. [place] PDMP QUERY DATE: 02/27/19 Risk Assessment Category: [...] No future appointments. Darío Low DMD, MD seam press operator documented in this encounter Miscellaneous Notes * Op Note - Darío Low MD - 02/27/2019 9:37 AM EDT [facility] Operative Note Patient Name: Tejas Manjarrez : [id number] MR#: [id number] Case Date: 02/27/2019 Surgeon: Surgeon(s) and Role: * Darío Low MD - Primary Preoperative diagnosis: CARIES FRACTURED TEETH; SKIN TAG LEFT UPPER EYE LID 1 CM Postoperative diagnosis: CARIES FRACTURED TEETH Procedure(s) (LRB): SURGICAL EXTRACTIONS REQUIRING ELEVATION OF MUCOPERIOSTEAL FLAP AND REMOVAL OF BONE OR SECTION OF TOOTH (WRVU 1.09) (N/A) ALVEOPLASTY,IN CONJUNCTION WITH EXTRACTIONS,PER QUADRANT,ENT (WRVU 4.06) (N/A) EXCISION BENIGN LES, [id number] >4.0CM (WRVU 4.09) Anesthesia: General Estimated Blood [...] and draped in the standard fashion for pastoral worker. The oral cavity was suctioned and an [...] Hnd, Ft, Gnt, More Than 4.0 Cm ([id number]) 02/27/2019 7:30 AM EDT CARIES FRACTURED TEETH [...] MD PATHOLOGY/CYTOLOGY O RDERABLES Performing Organization Address City/State/[facility] Co de Phone Number [facility] [place] [address] * Surgical Pathology Report (02/27/2019 9:23 AM EDT) Final Diagnosis [id number] ? Location: [facility]; [facility]; A The signing pathologist has (i) examined the relevant preparation(s) for the specimen(s) and (ii) rendered or confirmed the diagnosis(es). . ?Surgical Pathology DIAGNOSIS Skin, left upper eye lid skin tag, excision: - Fibroepithelial polyp Electronically signed by: ??Juan A Duque MD Verified: ??03/01/2019 ?[address], Bone & Soft Tissue Pathologist Performed at: ??-[facility] [facility] Dept. of Pathology, [place], [place] CLINICAL INFORMATION Specimen Submitted: A - [...] O ANGELIKA [facility] [place] [address] documented in this encounter Visit Diagnoses Not [...] Procedure), Routine 0715 (Given - Provid er: hSanon Ponce) ampicillin-sulbactam (UNASYN) 3 g vial attach [...] Routine documented in this encounter Care Teams Superintendent Circus Relationship Specialty Start Date End Date Josh Zarate MD PCP - General Family Medicine 12/20/18 03/05/23 documented as of this encounter
--- OUTSIDE RECORDS SUMMARY | 2024-06-14 06:08 | XMS_ITS | Encounter Summary ---
Author Organization [facility] Address [address] [place] [address] Care Team Providers Care Interlocking Installer Name Role Phone Josh Zarate MD Primary Care Provider Encounter Details Date Type Department Care Team (Late st Contact Info) Description 03/07/2023 Lab Requisition [facility] Pathology & Laboratory Medicine - [facility] [address] [place] [address] Dilma Galicia, DO [address] [place], [place] [address] Diverticulosis of large intestine without perforation or [...] explore management options, if applicable. 03/08/2023 17:27 [facility] Final Diagnosis A. JEJUNUM, PROXIMAL, [...] - Consistent with reflux esophagitis. 03/08/2023 17:27 [facility] Attestation By the signature below, the attending physician certifies that they have 1) personally conducted a gross and/or microscopic examination of the described specimen(s), and/or personally interpreted the results of laboratory testing of the described specimen(s), and 2) personally rendered or confirmed the above diagnosis. 03/08/2023 17:27 [facility] at 1726 Clinical History Diverticulosis 03/08/2023 17:27 [facility] Gross Description A. Received in [...] Kymberly Cruz 03/08/2023 7:49 03/08/2023 17:27 T [facility] Performing Lab [facility] 17:27 T [facility] Scanned Images 03/08/2023 17:27 [facility] Tissue ESOPHAGEAL STRUCTURE / Unknown [...] Galicia DO PATHOLOGY ORDERABLES Final Re sult [facility] [address] [place] [address] documented in this encounter Visit Diagnoses Diagnosis [...] unspecified documented in this encounter Care Teams Interlocking Installer Relationship Specialty Start Date End Date Josh Zarate MD [place] [address] PCP - General 09/20/17 documented as of this encounter
--- OUTSIDE RECORDS SUMMARY | 2024-06-14 06:08 | XMS_ITS | Encounter Summary ---
Author Organization [facility] Address [address] [place] [address] Care Team Providers Care Field Agronomist Name Role Phone Unknown, Provider Primary Care Provider Unava ilable Encounter Details Date Type Department Care Team (Late st Contact Info) Description 10/23/2012 Results Only [facility] Laboratory Services - [facility] ([facility] [address] [place], [place] [id number] MD [address] [place] [id number] Social History Tobacco Use Types Packs/Day Years [...] ? DARVIN MANJARREZ ? Accession #: ? [id number] : ? 1965 (Age: 47) ??F ?Collect [...] Final Resul t [facility] [address] [place] [address] documented in this encounter Visit Diagnoses Not on filedocumented in this encounter Care Teams Field Agronomist Relationship Specialty Start Date End Date Unknown, Provider, PCP - General 10/25/12 10/25/12 documented as of this encounter
--- OUTSIDE RECORDS SUMMARY | 2024-06-14 06:08 | XMS_ITS | Encounter Summary ---
Author Organization [facility] [place] [address] Care Team Providers Care Speech And Drama Teacher Name Role Phone Josh Zarate MD Primary Care Provider [phone] Encounter Details Date Type Department Care Team (Late st Contact Info) Description 02/27/2019 7:28 AM EDT Anesthesia Event [place] [address] Brian Cabral MD Breen, Lucas D, MD [facility] [place] [address] Anesthesia Record Procedure Summary Procedure Name Responsible [...] 0703; median cubital vein (antecubital fossa), right; bsue-rtx-agopif catheter system; 20 gauge, 1 in length; [...] Procedure Summary Date: 02/27/19 Room / Location: [facility] OR [facility] MAIN OR Anesthesia Start: 727 Anesthesia Stop: 950 Procedures: SURGICAL EXTRACTIONS REQUIRING ELEVATION OF MUCOPERIOSTEAL FLAP AND REMOVAL OF BONE OR SECTION OF TOOTH (WRVU 1.09) (N/A ) ALVEOPLASTY,IN CONJUNCTION WITH EXTRACTIONS,PER QUADRANT,ENT (WRVU 4.06) (N/A ) EXCISION BENIGN LES, [id number] >4.0CM (WRVU 4.09) (Eye) Diagnosis: (CARIES FRACTURED TEETH) Surgeon: Darío Low MD Responsible Provider: Brian Cabral MD Anesthesia Type: general ASA Status: 2 All Anesthesia Providers: Anesthesiologist: Brian Cabral MD Sports Team Manager: Daniel Rowe MD Vitals Value Taken Time BP 150/106 02/27/2019 10:30 AM Temp Pulse 87 02/27/2019 10:20 AM Resp 14 02/27/2019 10:20 AM SpO2 94 % 02/27/2019 10:31 AM Pain Level 0 02/27/2019 10:20 AM Vitals shown include unvalidated device data. Patient Location: PACU/[facility] Level of Consciousness: Conscious but Sleepy [...] on Mon02/27/19 at 0758, Until Mon02/27/19 at 950, Anesthesia Intra-op, Routine Given 02/27/2019 8:22 AM EDT 80 mcg Given 02/27/2019 8:19 AM EDT 80 mcg Given 02/27/2019 8:16 AM EDT 80 mcg propofol (DIPRIVAN) 10 mg/mL bolus injection (Anesthesia) PRN, Starting on Mon02/27/19 at 0744, Until Mon02/27/19 at 950, Anesthesia Intra-op Given 02/27/2019 7:47 AM EDT 50 mg Given 02/27/2019 7:44 AM EDT 200 mg rocuronium (ZEMURON) multi-dose injection PRN, Starting on Mon02/27/19 at 0744, Until Mon02/27/19 at 950, Anesthesia Intra-op, Routine Given 02/27/2019 7:44 AM EDT 50 mg documented in this encounter Care Teams Speech And Drama Teacher Relationship Specialty Start Date End Date Josh Zarate MD PCP - General Family Medicine 12/20/18 03/05/23 documented as of this encounter
--- OUTSIDE RECORDS SUMMARY | 2024-06-14 06:08 | XMS_ITS | Encounter Summary ---
Author Organization [facility] [place] [address] Care Team Providers Care Marking Room Supervisor Name Role Phone Josh Zarate MD Primary Care Provider [phone] Reason for Referral * Consultation (Routine) - Closed Specialty Diagnoses / Procedures Referred By Teja beard Referred To Contact Otolaryngology Diagnoses Obstructive sleep apnea (adult) (pediatric) Josh Zarate MD [address] [place] [address] [place] [address] [facility] Otolaryngology [address] [place] [id number] Referral ID Status Reason Start Date Expiration Date V isits Requested Visits Authorized [id number] Closed Consult, Test & Treat PCP Updated and/or Approved 05/02/2023 05/01/2024 6 6 Encounter Details Date Type Department Care Team (Late st Contact Info) Description 05/02/2023 Transcribe Orders eD Incoming Referrals [phone] Josh Zarate MD [address] [place] [address] [address] [place], [place] [id number] Obstructive sleep apnea (adult) (pediatric) Social History [...] (pediatric) documented in this encounter Care Teams Marking Room Supervisor Relationship Specialty Start Date End Date Josh Zarate MD PCP - General Family Medicine 03/06/23 documented as of this encounter
--- OUTSIDE RECORDS SUMMARY | 2024-06-14 06:08 | XMS_ITS | Encounter Summary ---
Author Organization [facility] Address [address] [place] [address] Care Team Providers Care Composition Tile Layer Name Role Phone Josh Joy MD Primary Care Provider [phone] Encounter Details Date Type Department Care Team (Latest Contact Info) Description 09/18/2017 10:26 EDT - 09/18/2017 23:59 EDT Hospital Encounter [facility] [address] [place] [address] Unknown, Provider, Discharge Disposition: Auto Discharge Social [...] on filedocumented in this encounter Care Teams Composition Tile Layer Relationship Specialty Start Date End Date Josh Joy MD [address] [place] [phone] PCP - General 10/26/12 09/19/17 documented as of this encounter
--- OUTSIDE RECORDS SUMMARY | 2024-06-14 06:08 | XMS_ITS | Encounter Summary ---
Author Organization [facility] Address [address] [place] [address] Care Team Providers Care Zigzag Stitcher Name Role Phone Spencer Joy MD Primary Care Provider Encounter Details Date Type Department Care Team (Late st Contact Info) Description 09/18/2017 Results Only [facility] [phone] Melisa Hand MD [address] [place] [address] [place] [address] Social History Tobacco Use Types Packs/Day Years [...] ? DARVIN MANJARREZ ? Accession #: ? [id number] ? : ? 1965 (Age: 52) ??F [...] Sharma 09/19/2017 9:22 AM End of Report [facility] 09/18/2017 8:45 EDT 09/19/2017 8:45 EDT us Melisa Hand MD PATHOLOGY ORDERABLES Fin al Result [facility] [address] [place] [address] documented in this encounter Visit Diagnoses Not on filedocumented in this encounter Care Teams Zigzag Stitcher Relationship Specialty Start Date End Date Spencer Joy MD [address] [place] [phone] PCP - General 10/26/12 09/19/17 documented as of this encounter
--- OUTSIDE RECORDS SUMMARY | 2024-06-14 06:08 | XMS_ITS | Clinical Summary ---
Author Organization [facility] Address [address] [place] [address] Care Team Providers Care Landscape Maintenance Internship Name Role Phone Josh Zarate MD Primary [...] [place] Care Teams Landscape Maintenance Internship Relationship Specialty Start Date End Date Josh Zarate MD [facility] [place] [address] PCP - General 09/20/17
--- OUTSIDE RECORDS SUMMARY | 2024-06-14 06:08 | XMS_ITS | Clinical Summary ---
Author Organization [facility] Address [address] [facility] [place] [address] Care Team Providers Care Deputy Commonwealth'S Attorney Name Role Phone Josh Zarate MD Primary Care Provider [phone] Allergies No known active allergies Medications Medication [...] Documents on File Type Date Recorded Patient Photocomposing Keyboard Operator Expl anation Personal Photocomposing Keyboard Operator 09/21/2018 1:44 PM [facility] * Full Code (Latest Code Status on File) Date Activated Date Inactivated Comments 02/27/2019 7:12 AM 02/27/2019 3:06 PM Question Answer Comments Does patient have capacity to make decision: Yes Care Teams Deputy Commonwealth'S Attorney Relationship Specialty Start Date End Date Josh Zarate MD PCP - General Family Medicine 03/06/23
--- OUTSIDE RECORDS SUMMARY | 2024-06-14 06:08 | XMS_ITS | Referral Summary ---
Author Organization [facility] Address [address] [place] [address] Care Team Providers Care Manager Resource Name Role Phone Josh Zarate MD Primary Care Provider [phone] Social History Tobacco Use Types Packs/Day Years [...] [place] Care Teams Manager Resource Relationship Specialty Start Date [place] [address] PCP - General 09/20/17
--- OUTSIDE RECORDS SUMMARY | 2024-06-14 06:09 | XMS_ITS | Encounter Summary ---
Author Organization [facility] [place] [address] Care Team Providers Care Gas Refrigerator Servicer Name Role Phone Josh Zarate MD Primary Care Provider [phone] Encounter Details Date Type Department Care Team (Late st Contact Info) Description 02/27/2019 6:29 AM EDT - 02/27/2019 12:51 PM EDT Hospital Encounter [place] [id number] Darío Low MD [facility] [address] ORAL [place] [address] Discharge Disposition: Home Social History Tobacco Use [...] may be helpful. Most swelling will occur [id number] hours following the procedure. Mouth Rinse: Vigorous [...] can be reached during office hours at [phone]. documented in this encounter Medications at Time [...] file Gets together: Not on file Attends methodist service: Not on file Active member of [...] QUADRANT,ENT (WRVU 4.06) No flowsheet data found. MD PDMP QUERY DATE: 02/27/19 Risk Assessment Category: [...] No future appointments. Darío Low DMD, MD resource paraprofessional documented in this encounter Miscellaneous Notes * Op Note - Darío Low MD - 02/27/2019 9:37 AM EDT [facility] Operative Note Patient Name: Tejas Manjarrez : [id number] MR#: [id number] Case Date: 02/27/2019 Surgeon: Surgeon(s) and Role: * Darío Low MD - Primary Preoperative diagnosis: CARIES FRACTURED TEETH; SKIN TAG LEFT UPPER EYE LID 1 CM Postoperative diagnosis: CARIES FRACTURED TEETH Procedure(s) (LRB): SURGICAL EXTRACTIONS REQUIRING ELEVATION OF MUCOPERIOSTEAL FLAP AND REMOVAL OF BONE OR SECTION OF TOOTH (WRVU 1.09) (N/A) ALVEOPLASTY,IN CONJUNCTION WITH EXTRACTIONS,PER QUADRANT,ENT (WRVU 4.06) (N/A) EXCISION BENIGN LES, [id number] >4.0CM (WRVU 4.09) Anesthesia: General Estimated Blood [...] and draped in the standard fashion for morale officer. The oral cavity was suctioned and an [...] Hnd, Ft, Gnt, More Than 4.0 Cm ([id number]) 02/27/2019 7:30 AM EDT CARIES FRACTURED TEETH [...] AM EDT 02/27/2019 9:26 AM EDT Narrative [facility] - 02/27/2019 9:26 AM EDT Specimen requisition ordered. ??Separate Pathology report to follow Darío Low MD PATHOLOGY/CYTOLOGY O RDERAVICTOR MANUEL [facility] [place] [address] * Surgical Pathology Report (02/27/2019 9:23 AM EDT) Final Diagnosis [id number] ? Location: [facility]; [facility]; A The signing pathologist has (i) examined the relevant preparation(s) for the specimen(s) and (ii) rendered or confirmed the diagnosis(es). . ?Surgical Pathology DIAGNOSIS Skin, left upper eye lid skin tag, excision: - Fibroepithelial polyp Electronically signed by: ??Dunia العراقي, Juan A Mobley Verified: ??03/01/2019 ?[address] st, Bone & Soft Tissue Pathologist Performed at: ??-[facility] Dept. of Pathology, [place], [place] CLINICAL INFORMATION Specimen Submitted: A - [...] labeled A1. sns 03/01/2019 12:44 PM EDT [facility] SPECIMEN FROM SKIN / Unknown 02/27/2019 9:23 AM EDT 02/27/2019 9:23 AM EDT Darío Low MD PATHOLOGY/CYTOLOGY O ANGELIKA [facility] [place] [address] documented in this encounter Visit Diagnoses Not [...] Routine documented in this encounter Care Teams Gas Refrigerator Servicer Relationship Specialty Start Date End Date Josh Zarate MD PCP - General Family Medicine 12/20/18 03/05/23 documented as of this encounter
--- OUTSIDE RECORDS SUMMARY | 2024-06-14 06:09 | XMS_ITS | Encounter Summary ---
Author Organization [facility] [place] [address] Care Team Providers Care Hygiene Coordinator Name Role Phone Josh Zarate MD Primary Care Provider [phone] Reason for Visit * Reason Comments Establish Care Full mouth clearanc e * Consultation (Routine) - Specialty Diagnoses / Procedures Referred By Contact Referred To Contact Maxillofacial Surgery Diagnoses Needs full mouth clearance. Very nervous with needle, needs GA. Mentally handicapped from Head Trauma Tyrell Chandra, DMD [address] [place] [address] Darío Low MD [facility] ORAL AND [place] [address] Referral ID Status Reason Start Date Expiration Date V isits Requested Visits Authorized [id number] Consult, Test & Treat PCP Updated and/or Approved 09/21/2018 03/23/2019 6 6 Encounter Details Date Type Department Care Team (Late st Contact Info) Description 12/20/2018 9:00 AM EDT Office Visit [place] [address] Darío Low MD [facility] DR [address] [place] [address] Dental caries Social History Tobacco Use Types [...] sensitivity ?? Pt presents with Sailaja- patient route service representative ?? Patient has mild intellectual [...] carefully reviewed with the patient and patients route service representative including but not limited to [...] benefits and attendant risks. Tejas and his critical care nurse practitioner were given an opportunity to ask questions [...] caries documented in this encounter Care Teams Hygiene Coordinator Relationship Specialty Start Date End Date Josh Zarate MD PCP - General Family Medicine 12/20/18 03/05/23 documented as of this encounter
[2024-06-14 06:21] VITALS: BP 129/88; PULSE 94; RESP 16; TEMP 36; O2SAT 94
--- NOTE | 2024-06-14 06:28 | ANES.PREOP_ITS ---
General Info Date of Service Date Performed: 06/14/24 Height: 5 ft 8 in Weight: 96.2 kg Body Mass Index (BMI): 32.2 Surgical Procedure: Operation Date: 06/14/24 07:40 Proposed Procedure Side Surgeon p Cataract Extraction with IOL Implant Left Helder Dawkins MD Meds Allergies and Home Medications Allergies Allergy/AdvReac Type Severity Reaction Status Date / Time No Known Allergies Allergy Verified 06/14/24 06:31 Home Medication ?Medication ?Instructions ?Recorded simvastatin 40 mg tablet 40 mg PO DAILY 03/26/14 tiotropium bromide 18 mcg capsule 18 mcg inhalation DIRECTED 03/26/14 with inhalation device (Spiriva with HandiHaler) finasteride 5 mg tablet 5 mg PO DAILY 03/14/17 psyllium husk (aspartame) 3.4 gram 3.4 g PO DAILY 09/05/17 oral powder packet (Metamucil Fiber Singles) venlafaxine 100 mg tablet 100 mg PO TID 09/14/17 salmeterol 50 mcg/dose blister 1 inh inhalation BID 06/17/20 powder for inhalation (Serevent Diskus) albuterol sulfate 90 mcg/actuation 2 puff inhalation QID 01/30/23 aerosol inhaler (Ventolin HFA) bupropion HCl 100 mg tablet 100 mg PO BID 01/30/23 calcium carbonate (Tums) 200 mg PO TID 01/30/23 ketoconazole 2 % topical cream 1 applic topical BID 01/30/23 loratadine 10 mg tablet (Allergy 10 mg PO DAILY 01/30/23 Relief (loratadine)) polyethylene glycol 3350 17 17 g PO DAILY 01/30/23 gram/dose oral powder gabapentin 600 mg tablet 600 mg PO DIRECTED 03/07/23 pantoprazole 40 mg tablet,delayed 40 mg PO DAILY #30 tabs 03/07/23 release (Protonix) quetiapine 100 mg tablet 100 mg PO BID 06/04/24 venlafaxine 25 mg tablet 25 mg PO DIRECTED 06/04/24 Current Visit Medications: Current Medications Generic Name Dose Route Start Last Admin Trade Name Freq PRN Reason Stop Dose Admin Acetaminophen 1,000 mg 06/14/24 06:00 Acetaminophen 500 Mg Tab PO 07/14/24 05:59 Q4H PRN PRN Balanced Salt Solution 500 ml 06/14/24 06:00 Balanced Salt Soln.-Plus 500 Ml Bag OP 07/14/24 05:59 DIRECTED [facility] Miscellaneous Medication 0 ml 06/14/24 06:00 Prednisolone 1%, Moxifloxacin 0.5%, Bromfenac 0.09% 5.6ml Btl OS 07/14/24 05:59 DIRECTED [facility] Miscellaneous Medication 0 ml 06/14/24 06:00 Tropicam./Phenyleph. (1/2.5%) 5 Ml Btl OS 07/14/24 05:59 DIRECTED [facility] Tetracaine HCl 0 ml 06/14/24 06:00 Tetracaine 0.5% 4 Ml Btl OS 07/14/24 05:59 DIRECTED [facility] PFSH Active Problems Active Problems: Problem Status Onset Code Posterior subcapsular age-related cataract of left eye Acute H25.042 Nuclear age-related cataract, left eye Chronic H25.12 Nuclear age-related cataract, right eye Resolved H25.11 Diverticula of colon Acute K57.30 Hiatal hernia with GERD Acute K21.9, K44.9 Hypertension Chronic I10 Conductive hearing loss, external ear Acute H90.2 Sensorineural hearing loss of both ears Acute H90.3 Acute otitis externa of right ear Acute H60.501 Bilateral impacted cerumen Acute H61.23 Dysphagia Acute R13.10 Adenomatous polyps Acute D36.9 Hematemesis Acute K92.0 Medical History Medical History Lower urinary tract symptoms Constipation Tinea corporis Mood disorder Dyspnea on exertion Hematemesis Obesity COPD (chronic obstructive pulmonary disease) Tremor OCD (obsessive compulsive disorder) Developmental disability laymans terms best way to explain things to pt. CHRISTIANO (obstructive sleep apnea) Surgical History Surgical History History of esophagogastroduodenoscopy (~02/2023) Vasectomy Colonoscopy - MAC (02/2023) Tobacco Smoking/Tobacco Use Status: Current every day Tobacco Type: smokeless tobacco Smokeless tobacco user: chewing tobacco Alcohol Alcohol Intake: never Substance Use Substance use: Never Substance use type: does not use Vital Signs and Lab Results Lab Results Blood Type / Crossmatch: No Data to Display Complete Blood Count: No Data to Display Complete Metabolic Panel: Sodium 143 mmol/L (136-145) 05/22/24 10:00 Potassium 4.8 mmol/L (3.5-5.1) 05/22/24 10:00 Chloride 106 mmol/L (98-107) 05/22/24 10:00 Carbon Dioxide 28.6 mmol/L (21.0-32.0) 05/22/24 10:00 BUN 17 mg/dL (7-18) 05/22/24 10:00 Creatinine 1.4 mg/dL (0.70-1.30) H 05/22/24 10:00 Est GFR (CKD-EPI 2020) 57.18 (mL/min/1.73m2) 05/22/24 10:00 Calcium 9.0 mg/dL (8.5-10.1) 05/22/24 10:00 Glucose 101 mg/dL (74-106) 05/22/24 10:00 Liver Function Panel: No Data to Display Coagulation Panel: No Data to Display Cardiac Panel: No Data to Display Arterial Blood Gas: No Data to Display Venous Blood Gas: No Data to Display Pancreas Panel: No Data to Display Thyroid Panel: No Data to Display Infectious Disease: No Data to Display Blood Cultures: No Data to Display Toxicology Panel: No Data to Display Imaging and Studies Imaging and Studies Study information below may be from another EMR and interpreted by another provider. Please see original notes in EMR for more complete details. EKG Summary: 08/16: sinus, LAD. Stress Test Summary: 02/15: pharm, 12.5 METS, no ECG evidence of ischemia. EF 62%, normal perfusion. no evidence of ischemia/infarction. Echocardiogram Summary: 04/15: LVEF 65-70%, normal RV, no sig valve dz. Pulmonary Function Summary: 2012: mild obstructive airway dz with sig bronchodilator response. Anesthesia Assessment and Plan Anesthesia History Personal History: No History of Anesthesia Complications Family History: Family History Unknown Exercise Tolerance Exercise Tolerance: Metabolic Equivalents<4 Cardiac & Pulmonary Exam Cardiac Exam: Normal S1/S2 Heart Sounds Pulmonary Exam: Clear Bilateral Breath Sounds Implantable Cardiac Device Does patient have a Pacemaker or an ICD?: No Airway Exam Known Difficult Airway: No Mallampati Class: 3 Mouth Opening: Narrow (< 3cm) Thyromental Distance: Less than 3 cm Neck Range of Motion: Full ROM Neck Circumference: Thick Teeth Condition: Edentulous ASA Classification ASA Score: ASA 3 Emergency Case?: No NPO Status NPO Status: NPO Clears >2 hours, Solids >8 hours Anesthesia Plan Resuscitation Status: Full Code Anesthesia Technique: MAC Anesthesia Airway Planned: Natural Airway Monitors Used: Standard Monitors Preoperative Comments:: Repeat cataract. previous with dexmed and midaz. no issues.
[2024-06-14] MEDS: Tropicam./Phenyleph. (1/2.5%) 5 ML BTL OS ×3 (06:33→06:43)
[2024-06-14] MEDS: Normal Saline Flush 10 ML SYR IVP (06:45)
[2024-06-14 06:55] VITALS: BMI 32.2
[2024-06-14] MEDS: Tetracaine 0.5% 4 ML BTL OS (07:23)
[2024-06-14] MEDS: Lidocaine 1% Pres-Free 5 ML VIAL (07:33)
[2024-06-14] MEDS: Phenylephrine/Lidocaine (15/10) MG/ML 1 ML VIAL (07:36)
[2024-06-14] MEDS: Duovisc Viscoelastic System EACH 1 EACH (07:37)
[2024-06-14] MEDS: Povidone-Iodine Ophth 30 ML BTL (07:37)
[2024-06-14] MEDS: Balanced Salt Soln.-PLUS 500 ML BAG OP (07:38)
[2024-06-14] MEDS: Prednisolone 1%, Moxifloxacin 0.5%, Bromfenac 0.09% 5.6ML BTL OS (07:39)
--- NOTE | 2024-06-14 07:57 | W.PM.DSUDISC ---
Date of service: 06/14/24 Discharge Plan Disposition Patient Disposition: Home Discharge Details Attending Provider: Helder Dawkins Primary Care Provider: Bhavin Vo Home Meds and New Rx's Prescriptions: No Action simvastatin 40 MG tablet 40 mg PO DAILY Patient Comments: caregiver unsure if pt. takes tiotropium bromide [Spiriva with HandiHaler] 18 MCG capsule, w/inhalation device 18 mcg Inhalation DIRECTED Patient Comments: 2 puffs qam finasteride 5 MG tablet 5 mg PO DAILY Metamucil Fiber Singles 3.4 GM powder in packet 3.4 g PO DAILY Serevent Diskus 50 mcg/dose blister with device 1 inh inhalation BID bupropion HCl 100 mg tablet 100 mg PO BID polyethylene glycol 3350 17 gram/dose powder 17 g PO DAILY Rx Instructions: mix with 8 oz of liquid then taken by mouth daily for constipation prn no stool in 2 days calcium carbonate [Tums] 200 mg calcium (500 mg) tablet,chewable 200 mg PO TID ketoconazole 2 % cream 1 applic topical BID loratadine [Allergy Relief (loratadine)] 10 mg tablet 10 mg PO DAILY albuterol sulfate [Ventolin HFA] 90 mcg/actuation HFA aerosol inhaler 2 puff inhalation QID venlafaxine 100 MG tablet 100 mg PO TID Patient Comments: 09/14/17: Dose in addition to 125mg PO TID dose, per care provider. -BR gabapentin 600 mg tablet 600 mg PO DIRECTED pantoprazole [Protonix] 40 mg tablet,delayed release (DR/EC) 40 mg PO DAILY Qty: 30 12RF quetiapine 100 mg tablet 100 mg PO BID venlafaxine 25 mg tablet 25 mg PO DIRECTED Discharge Instructions Stand Alone Forms: DSU Post-Op CataractJoel (DSU) Discharge Orders Discharge Orders: Discharge Order (Routine); Ordered 06/14/24 Ordered By: Helder Dawkins DS: Diagnosis Discharge Diagnosis (1) Posterior subcapsular age-related cataract of left eye: Status: Resolved (2) Nuclear age-related cataract, left eye: Status: Resolved
--- NOTE | 2024-06-14 07:59 | W.PM.OP ---
Operative Note Operative Note PRE-OP DIAGNOSIS: Nuclear/posterior subcapsular cataract, left eye POST-OP DIAGNOSIS: same PROCEDURE: Cataract extraction using phacoemulsification with intraocular lens implant, left eye SURGEON: Helder Dawkins ANESTHESIA TYPE: Local By Surgeon and MAC Refer to Anesthesia Record PATHOLOGY: none sent COMPLICATIONS: None Patient was transported to: same day Patient's condition: stable Implants: Margarito and Margarito Tecnis Eyhance [id number] Indications: Progressive decreased vision due to cataract, left eye Procedure Description: CATARACT SURGERY OPERATIVE REPORT PREOPERATIVE DIAGNOSIS: 1. Nuclear/posterior subcapsular cataract, left eye POSTOPERATIVE DIAGNOSIS: Same OPERATION: 1. Cataract extraction using phacoemulsification with posterior chamber intraocular lens implant, left eye. IOL: IOL [employer]/Model: Margarito & Margarito Tecnis Eyhance DIB00 IOL Power: + 18.5 diopters IOL Serial Number: [id number] Optic Diameter: 6.0 mm Haptic/Overall Diameter: 13.0 mm PHACO INFO: Krunal [employer] Medicalurion Vision System with OZil and Active Fluidics Cumulative Dispersed Energy (CDE): 3.70 seconds SURGEON: Helder Dawkins MD, LESLIE ANESTHESIA: Monitored A [facility] ([facility] [place] with local sub-tenon's anesthetic infiltration COMPLICATIONS: None SPECIMENS: None INDICATIONS FOR PROCEDURE: The patient is a 59-year-old male with history of progressive decreased vision in both eyes secondary to the development of bilateral nuclear/posterior subcapsular cataract. He is significantly symptomatic that he desires cataract surgery and attempt to improve and maximize his vision. He underwent cataract surgery in the right eye a week ago, and is doing well postoperatively. He now presents for cataract surgery in the left eye. See office notes for detailed information. PROCEDURE: The correct surgical eye was identified and marked as the left eye and the pupil was dilated in the preoperative area using mydriatics and cycloplegics. The dilated pupil size was 6.0 mm. Intravenous access was obtained, and patient received Versed 2 mg IV and Precedex 8 mcg. The patient was brought to the operating room where cardiopulmonary monitoring was instituted and surgical time-out was performed, confirming the correct operative eye and IOL power. Topical anesthesia was administered and ophthalmic povidone-iodine 5% was instilled into the conjunctival fornices. The garrett-ocular area was prepped with Betadine 10% solution and draped in the usual sterile fashion for intraocular surgery, including an aperture drape. A Tegaderm transparent film dressing was cut in half and used to cover the lashes and lid margins. Care was taken to sequester the lashes and lid margins under the Tegaderm dressing. A lid speculum was placed between the lids of the operative eye and the Krunal LuxOR Revalia operating microscope was maneuvered into position. Dashawn scissors were then used to make a conjunctival buttonhole approximately 6mm posterior to the limbus in the inferonasal quadrant. Blunt dissection was carried out to expose bare sclera, and a blunt-tipped sub-tenon?s anesthesia cannula was introduced and passed posteriorly along the globe where non-preserved plain lidocaine was injected into posterior sub-Tenon?s space. A sideport knife was used to make a paracentesis port. Intraocular phenylephrine/lidocaine was injected into the anterior chamber.. The anterior chamber was filled with viscoelastic. A keratome knife was used to construct a 2-plane near-clear corneal tunnel extending 2.0mm into clear cornea. A flap was raised on the anterior capsule and capsulorhexis forceps were used to complete a continuous curvilinear capsulorhexis of 5.0 mm. Balanced salt solution was then used to perform cortical cleaving hydrodissection and nuclear hydrodelineation until the lens could be freely rotated within the capsular bag. The lens nucleus was then disassembled and removed within the capsular bag and iris plane using phacoemulsification. Residual cortical material was removed using the irrigation/aspiration handpiece. The posterior capsule was carefully polished to remove as much residual lens epithelial cells as safely possible. The capsular bag was then inflated and the anterior chamber deepened with viscoelastic. The lens implant described above was inserted into the capsular bag using the Margarito and Margarito Simplicity pre-loaded injector. A Kuglen hook was used to dial the IOL into position. Residual viscoelastic was then removed first from posterior to the IOL, then from the anterior chamber using the I/A handpiece. The lens implant was noted to center nicely within the capsular bag. The incisions were stromally hydrated, and the anterior chamber was reformed using BSS. Then 0.5cc of moxifloxacin 1.0mg/ml were injected into the capsular bag and anterior chamber. The incisions were checked with a Weck spear and found to be secure. Several drops of ophthalmic povidone-iodine 5% were then applied to the eye followed by two drops of Imprimis combination prednisolone/moxifloxacin/nepafenac solution. The drapes were removed and a clear plastic protective eye shield was placed over the eye. The patient was then returned to Same Day Surgery in stable condition. Date of Procedure: 06/14/24
[2024-06-14 08:00] VITALS: BP 104/72; PULSE 74; RESP 16; TEMP 36.5; O2SAT 96
--- NOTE | 2024-06-14 08:10 | W.ANESPOSTOP ---
Postoperative Evaluation Date, Time and Location Date Performed: 06/14/24 Time Performed: 08:10 Patient Location: Day Surgery Unit Vital Signs Most Recent Imported Vital Signs: Most Recent Vital Signs Temp Pulse Resp BP Pulse Ox 36.5 C 74 16 104/72 96 06/14/24 08:00 06/14/24 08:00 06/14/24 08:00 06/14/24 08:00 06/14/24 08:00 Pain Score Most Recent Pain Score: Most Recent Pain Score Pain Level 0 06/14/24 08:00 Assessment Mental Status: Arousable with meaningful communication Airway and Respiratory Function: Patent airway with normal (patient baseline) respiratory exam Cardiovascular Function: Hemodynamically Stable Hydration Status: Adequately Hydrated Nausea & Vomiting: No Nausea or Vomiting Pain: Pt. Denies Any Pain Peripheral Nerve Block: Patient did not receive a nerve block
[2024-06-14 08:24] VITALS: BP 104/58; PULSE 71; RESP 16; TEMP 36.6; O2SAT 97
== END 2024-06-14 08:33 | disposition home or self-care (01) ==
LOC: SUR 06:07
PROVIDERS: PCP Student in an Organized Health Care Education/Training Program; Visit Provider Ophthalmology
PROC: (CPT 66984; principal; 2024-06-14 07:30)
DX: H25.042 Posterior subcapsular polar age-related cataract, left eye (principal); H25.12 Age-related nuclear cataract, left eye; Z98.41 Cataract extraction status, right eye
CPT/HCPCS: 66984; 00123; V2632; J2003; J2250

== ENCOUNTER 2025-03-28 15:43 | Outpatient (REF) | payer MEDICARE, MEDICAID, SELFPAY ==
[2025-03-28 21:19] LABS: HCT 40.4 % (40.0-50.0); HGB 13.1 g/dL (13.5-17.5); MCH 29.8 pg (27.0-33.0); MCHC 32.4 % (32.0-36.0); MCV 92 fL (80-95); MPV 10.4 fL (8.0-11.0); Platelet Count 272 10^3/uL (130-400); RBC 4.40 10^6/uL (4.36-5.78); RDW 13.0 % (11.8-14.1); RDW-SD 43.7 fL; WBC 9.60 10^3/uL (4.4-10.8)
[2025-03-28 21:39] LABS: ALT 64 U/L (16-63); AST 33 U/L (15-37); Albumin 3.5 g/dL (3.4-5.0); Alkaline Phosphatase 110 U/L (46-116); Anion Gap 8.4 mmol/L (3-11); BUN 16 mg/dL (7-18); Bilirubin, Total 0.1 mg/dL (0.2-1.0); CO2 30.6 mmol/L (21.0-32.0); Calcium 9.1 mg/dL (8.5-10.1); Chloride 103 mmol/L (98-107); Estimated GFR 52.31 (mL/min/1.73m2); Glucose 86 mg/dL (74-106); Magnesium 2.1 mg/dL (1.8-2.4); Potassium 5.0 mmol/L (3.5-5.1); Sodium 142 mmol/L (136-145); TSH 2.07 uIU/mL (0.36-3.74); Total Protein 7.1 g/dL (6.4-8.2)
== END 2025-03-28 15:44 | disposition home or self-care (01) ==
LOC: NCHCN 15:43
PROVIDERS: PCP Student in an Organized Health Care Education/Training Program; Visit Provider Student in an Organized Health Care Education/Training Program
DX: R25.1 Tremor, unspecified (principal); R55 Syncope and collapse
CPT/HCPCS: 80053; 85027; 83735; 84439; 84443

== ENCOUNTER 2025-04-01 08:54 | Outpatient (CLI) | payer MEDICARE, MEDICAID, SELFPAY | END 2025-04-01 08:55 | disposition home or self-care (01) | PROVIDERS: PCP Student in an Organized Health Care Education/Training Program; Visit Provider Student in an Organized Health Care Education/Training Program | DX: R55 Syncope and collapse (principal) | CPT/HCPCS: 93246 ==

== ENCOUNTER 2025-05-14 10:39 | Outpatient (REF) | payer MEDICARE, MEDICAID, SELFPAY ==
[2025-05-14 16:06] LABS: TSH 1.61 uIU/mL (0.55-4.78)
[2025-05-14 16:29] LABS: T4 4.5 ug/dL (4.5-10.9)
== END 2025-05-14 10:40 | disposition home or self-care (01) ==
LOC: NCHCN 10:39
PROVIDERS: PCP Student in an Organized Health Care Education/Training Program; Visit Provider Student in an Organized Health Care Education/Training Program
DX: R79.89 Other specified abnormal findings of blood chemistry (principal)
CPT/HCPCS: 84436; 84439; 84443